=== PATIENT | female | born 2000 | race Caucasian/White ===

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

== ENCOUNTER 2018-01-08 16:03 | Inpatient (IN) | payer MEDICAID ==
[2018-01-08] VITALS (158 sets, daily range): BP systolic 118; BP diastolic 79; PULSE 96; TEMP 97.2; O2SAT 71–100
[~2018-01-08] VITALS: Ht 170.2 cm; Wt 63.5 kg
[2018-01-08 16:27] LABS: COLLECTION METHOD CLEAN CATCH
[2018-01-08 16:30] LABS: BASO % 0.4 % (0.0-2.0); EOS % 0.2 % (0-4.0); GRAN # 8.7 (1.4-6.5); GRAN % 77.9 % (42.2-75.2); HEMATOCRIT 46.4 % (35.0-45.0); HEMOGLOBIN 17.3 g/dl (12.0-15.0); LYMPH # 1.5 (1.2-3.4); LYMPH % 13.2 % (20.0-51.0); MEAN CELL VOLUME 86 fl (80.0-95.0); MEAN CORPUSCULAR HEMOGLOBIN 32 pg (26.0-32.0); MEAN CORPUSCULAR HGB CONC 37 g/dl (33.0-37.0); MEAN PLATELET VOLUME 9.7 fl (7.4-10.4); MONO # 0.9 (0.1-0.6); MONO % 7.7 % (1.7-9.3); PLATELET COUNT 182 K/mm3 (130-400); RED BLOOD COUNT 5.43 M/mm3 (4.10-5.30); REDCELL DISTRIBUTION WIDTH-CV 15.4 % (11.5-14.5)
[2018-01-08 16:34] LABS: MUCOUS Present /lpf; PH 6 (5-8); URINE APPEARANCE Hazy; URINE BACTERIA Rare /hpf; URINE BILIRUBIN Negative (NEGATIVE); URINE BLOOD Negative (NEGATIVE); URINE COLOR Yellow; URINE GLUCOSE 3+ (NEGATIVE); URINE KETONE 2+ (NEGATIVE); URINE LEUKOCYTE ESTERASE Negative (NEGATIVE); URINE NITRATE Negative (NEGATIVE); URINE PROTEIN(semi-quant) 2+ (NEGATIVE); URINE RBC 0-2 /hpf; URINE UROBILINOGEN Negative (NEGATIVE)
[2018-01-08 16:47] LABS: ALANINE AMINOTRANSFERASE 23 U/L (9-52); ALKALINE PHOSPHATASE 131 U/L (50-136); ANION GAP 22 mmol/L (7-16); AST,SGOT 17 U/L (15-37); BILIRUBIN,TOTAL 1.2 mg/dL (0.0-1.0); BLOOD UREA NITROGEN 6 mg/dL (7-17); C-REACTIVE PROTEIN 0.7 mg/dL (0.0-0.9); CALCIUM 9.2 mg/dL (8.4-10.2); CHLORIDE 104 mmol/L (98-107); CREATININE, serum 0.45 mg/dL (0.52-1.25); GLUCOSE 351 mg/dL (74-106); POTASSIUM 3.8 mmol/L (3.4-5.0); SODIUM 134 mmol/L (137-145); TOTAL PROTEIN 8.4 gm/dL (6.4-8.2)
[2018-01-08 16:54] LABS: CARBON DIOXIDE 7 mmol/L (22-30)
[2018-01-08 17:15] LABS: ACETONE,SERUM SMALL
[2018-01-08 17:46] LABS: TRICYCLIC ANTIDEPRESS URINE NEGATIVE
[2018-01-08] MEDS ORDERED: IMURAN 50MG TAB50 MG PO (21:07)
[2018-01-08 21:25] LABS: CALCIUM 8.2 mg/dL (8.4-10.2); CREATININE, serum 0.37 mg/dL (0.52-1.25); MAGNESIUM 1.7 mg/dL (1.6-2.3); PHOSPHOROUS 1.3 mg/dL (2.5-4.5); POTASSIUM 3.3 mmol/L (3.4-5.0)
[2018-01-08 23:31] LABS: CALCIUM 7.6 mg/dL (8.4-10.2); CREATININE, serum 0.3 mg/dL (0.52-1.25); POTASSIUM 3.6 mmol/L (3.4-5.0)
[2018-01-09] VITALS (850 sets, daily range): BP systolic 93–110; BP diastolic 57–74; PULSE 75–95; TEMP 97.1–98.2; O2SAT 79–100
[2018-01-09 01:38] LABS: CALCIUM 7.5 mg/dL (8.4-10.2); CREATININE, serum 0.32 mg/dL (0.52-1.25); POTASSIUM 3.8 mmol/L (3.4-5.0)
[2018-01-09 03:25] LABS: CALCIUM 7.3 mg/dL (8.4-10.2); CREATININE, serum 0.31 mg/dL (0.52-1.25); POTASSIUM 3.6 mmol/L (3.4-5.0)
[2018-01-09 06:03] LABS: CALCIUM 7.4 mg/dL (8.4-10.2); CREATININE, serum 0.29 mg/dL (0.52-1.25); MAGNESIUM 1.7 mg/dL (1.6-2.3); PHOSPHOROUS 2.8 mg/dL (2.5-4.5); POTASSIUM 3.2 mmol/L (3.4-5.0)
[2018-01-09 09:27] LABS: CALCIUM 7.9 mg/dL (8.4-10.2); CREATININE, serum 0.29 mg/dL (0.52-1.25)
[2018-01-09 09:32] LABS: POTASSIUM 2.9 mmol/L (3.4-5.0)
[2018-01-09 11:36] LABS: CREATININE, serum 0.31 mg/dL (0.52-1.25)
[2018-01-09 13:35] LABS: CALCIUM 7.8 mg/dL (8.4-10.2); CREATININE, serum 0.34 mg/dL (0.52-1.25); POTASSIUM 3.1 mmol/L (3.4-5.0)
[2018-01-09 15:20] LABS: CALCIUM 8.1 mg/dL (8.4-10.2); CREATININE, serum 0.31 mg/dL (0.52-1.25)
[2018-01-09 18:06] LABS: CALCIUM 8.1 mg/dL (8.4-10.2); CREATININE, serum 0.3 mg/dL (0.52-1.25); POTASSIUM 3.1 mmol/L (3.4-5.0)
[2018-01-10] VITALS (7 sets, daily range): BP systolic 107–129; BP diastolic 46–80; PULSE 74–102; TEMP 97.7–98.9
[2018-01-10 07:31] LABS: BASO % 0.3 % (0.0-2.0); EOS # 0.1 (0.0-0.7); EOS % 1.5 % (0-4.0); GRAN # 2.2 (1.4-6.5); GRAN % 57.2 % (42.2-75.2); LYMPH % 26.8 % (20.0-51.0); MEAN CELL VOLUME 85 fl (80.0-95.0); MEAN CORPUSCULAR HGB CONC 37 g/dl (33.0-37.0); MONO # 0.5 (0.1-0.6); MONO % 13.9 % (1.7-9.3); PLATELET COUNT 96 K/mm3 (130-400)
[2018-01-10 07:46] LABS: CALCIUM 8.1 mg/dL (8.4-10.2); CREATININE, serum 0.34 mg/dL (0.52-1.25); MAGNESIUM 1.6 mg/dL (1.6-2.3); PHOSPHOROUS 2.2 mg/dL (2.5-4.5)
[2018-01-10 07:47] LABS: POTASSIUM 2.9 mmol/L (3.4-5.0)
[2018-01-10 07:54] LABS: HEMOGLOBIN 12.2 g/dl (12.0-15.0); MEAN CORPUSCULAR HEMOGLOBIN 31 pg (26.0-32.0)
[2018-01-10 18:05] LABS: CALCIUM 8.4 mg/dL (8.4-10.2); CREATININE, serum 0.35 mg/dL (0.52-1.25); POTASSIUM 3.4 mmol/L (3.4-5.0)
[2018-01-11 03:19] VITALS: BP 114/60; PULSE 88; TEMP 98.2
[2018-01-11 07:28] LABS: EOS % 1.3 % (0-4.0); GRAN # 1.6 (1.4-6.5); GRAN % 50.1 % (42.2-75.2); HEMOGLOBIN 11.1 g/dl (12.0-15.0); LYMPH % 32.6 % (20.0-51.0); MEAN CELL VOLUME 86 fl (80.0-95.0); MEAN CORPUSCULAR HEMOGLOBIN 32 pg (26.0-32.0); MEAN CORPUSCULAR HGB CONC 37 g/dl (33.0-37.0); MEAN PLATELET VOLUME 10.9 fl (7.4-10.4); MONO # 0.5 (0.1-0.6); MONO % 15.7 % (1.7-9.3); PLATELET COUNT 86 K/mm3 (130-400); RED BLOOD COUNT 3.51 M/mm3 (4.10-5.30)
[2018-01-11 07:31] LABS: HEMATOCRIT 30.1 % (35.0-45.0)
[2018-01-11 07:38] LABS: CALCIUM 8.1 mg/dL (8.4-10.2); CREATININE, serum 0.27 mg/dL (0.52-1.25); MAGNESIUM 1.8 mg/dL (1.6-2.3); POTASSIUM 3.3 mmol/L (3.4-5.0)
[2018-01-11 08:19] VITALS: BP 105/59; PULSE 68; TEMP 98
[2018-01-11 13:19] VITALS: BP 115/69; PULSE 95; TEMP 97.9
[2018-01-11] MEDS ORDERED: DOXYCYCLINE 10100 MG PO (13:45)
[2018-01-11] MEDS ORDERED: LEVEMIR100 U/ML SQ (13:46)
[2018-01-11 15:32] VITALS: BP 121/69; PULSE 89; TEMP 98.5
[2018-01-11] MEDS ORDERED: NOVLOG SQ (17:38)
== END 2018-01-11 18:18 | disposition home or self-care (01) | DRG 639 ==
LOC: COL.ER 16:03 → MEDICAL 18:25 → ICU 18:25 → MEDICAL 01-09 20:54
PROVIDERS: Emergency Medicine; Nurse Practitioner Family; Nurse Practitioner Primary Care; Physician Assistant
DX: E11.10 Type 2 diabetes mellitus with ketoacidosis without coma (principal); Z79.4 Long term (current) use of insulin; K75.4 Autoimmune hepatitis; E87.6 Hypokalemia; E86.0 Dehydration; E83.42 Hypomagnesemia; F12.10 Cannabis abuse, uncomplicated; L02.422 Furuncle of left axilla; E83.39 Other disorders of phosphorus metabolism; Z91.14 Patient's other noncompliance with medication regimen; F17.210 Nicotine dependence, cigarettes, uncomplicated
CPT/HCPCS: 99232-AI; 99239; J1650; J1815; J3475; J3480; J7040; J7500

== ENCOUNTER 2018-03-09 16:58 | Inpatient (IN) | payer MEDICAID ==
[~2018-03-09] VITALS: Ht 170.2 cm; Wt 61.7 kg
[2018-03-09] VITALS (227 sets, daily range): BP systolic 112–118; BP diastolic 67–69; PULSE 80–81; TEMP 98.2; O2SAT 98–100
[~2018-03-09 16:58] MED LIST changes: +IMURAN 50MG TAB50 MG PO; +NOVLOG SQ
[2018-03-09 17:41] LABS: ARTERIAL BLD GAS O2 SATURATION 97.5 % (92-100); ARTERIAL BLD GAS TCO2 CT 7.3; ARTERIAL BLOOD GAS HCO3 6.8 meq/L (22-26); ARTERIAL BLOOD GAS PCO2 16.3 mmHg (35-45); ARTERIAL BLOOD GAS PO2 119.2 mmHg (80-100); ARTERIAL BLOOD GAS pH 7.24 (7.35-7.45)
[2018-03-09 17:59] LABS: BASO % 0.3 % (0.0-2.0); EOS % 0.5 % (0-4.0); GRAN # 4.7 (1.4-6.5); GRAN % 76.3 % (42.2-75.2); HEMATOCRIT 43.3 % (35.0-45.0); HEMOGLOBIN 15.3 g/dl (12.0-15.0); LYMPH # 0.9 (1.2-3.4); LYMPH % 14.9 % (20.0-51.0); MEAN CELL VOLUME 93 fl (80.0-95.0); MEAN CORPUSCULAR HEMOGLOBIN 33 pg (26.0-32.0); MEAN CORPUSCULAR HGB CONC 35 g/dl (33.0-37.0); MEAN PLATELET VOLUME 10.2 fl (7.4-10.4); MONO # 0.5 (0.1-0.6); MONO % 7.7 % (1.7-9.3); PLATELET COUNT 107 K/mm3 (130-400); RED BLOOD COUNT 4.65 M/mm3 (4.10-5.30); REDCELL DISTRIBUTION WIDTH-CV 14.1 % (11.5-14.5)
[2018-03-09] MEDS ORDERED: LEVEMIR FLEX100 U/ML SQ (18:14)
[2018-03-09 18:19] LABS: ALANINE AMINOTRANSFERASE 36 U/L (9-52); ALBUMIN 4.7 gm/dL (3.5-5.0); ALKALINE PHOSPHATASE 148 U/L (50-136); ANION GAP 23 mmol/L (7-16); AST,SGOT 20 U/L (15-37); BILIRUBIN,TOTAL 1.2 mg/dL (0.0-1.0); BLOOD UREA NITROGEN 7 mg/dL (7-17); CALCIUM 8.9 mg/dL (8.4-10.2); CHLORIDE 100 mmol/L (98-107); GLUCOSE 356 mg/dL (74-106); POTASSIUM 4.1 mmol/L (3.4-5.0); SODIUM 130 mmol/L (137-145); TOTAL PROTEIN 7.9 gm/dL (6.4-8.2)
[2018-03-09 18:20] LABS: CARBON DIOXIDE 6 mmol/L (22-30)
[2018-03-09 18:22] LABS: ACETONE,SERUM LARGE
[2018-03-09 19:05] LABS: COLLECTION METHOD CLEAN CATCH
[2018-03-09 19:12] LABS: MUCOUS Present /lpf; PH 5 (5-8); SQUAMOUS EPITHELIAL 0-2 /hpf; URINE APPEARANCE Clear; URINE BACTERIA None Seen /hpf; URINE BILIRUBIN Negative (NEGATIVE); URINE BLOOD 1+ (NEGATIVE); URINE COLOR Straw; URINE GLUCOSE 3+ (NEGATIVE); URINE KETONE 2+ (NEGATIVE); URINE LEUKOCYTE ESTERASE Negative (NEGATIVE); URINE NITRATE Negative (NEGATIVE); URINE PROTEIN(semi-quant) Negative (NEGATIVE); URINE RBC 0-2 /hpf; URINE UROBILINOGEN Negative (NEGATIVE)
[2018-03-09 21:45] LABS: MAGNESIUM 1.6 mg/dL (1.6-2.3); PHOSPHOROUS 3.5 mg/dL (2.5-4.5)
[2018-03-09 21:58] LABS: CALCIUM 8.1 mg/dL (8.4-10.2); CREATININE, serum 0.35 mg/dL (0.52-1.25); POTASSIUM 3.8 mmol/L (3.4-5.0)
[2018-03-10] VITALS (1014 sets, daily range): BP systolic 89–111; BP diastolic 2–66; PULSE 75–83; TEMP 98.2–98.6; O2SAT 89–100
[2018-03-10 00:11] LABS: CALCIUM 7.4 mg/dL (8.4-10.2); CREATININE, serum 0.31 mg/dL (0.52-1.25); POTASSIUM 3.6 mmol/L (3.4-5.0)
[2018-03-10 00:18] LABS: TRICYCLIC ANTIDEPRESS URINE NEGATIVE
[2018-03-10 01:57] LABS: CALCIUM 7.3 mg/dL (8.4-10.2); CREATININE, serum 0.31 mg/dL (0.52-1.25); POTASSIUM 3.5 mmol/L (3.4-5.0)
[2018-03-10 04:32] LABS: CALCIUM 7.3 mg/dL (8.4-10.2); CREATININE, serum 0.3 mg/dL (0.52-1.25); POTASSIUM 3.4 mmol/L (3.4-5.0)
[2018-03-10 07:17] LABS: CALCIUM 7.3 mg/dL (8.4-10.2); CREATININE, serum 0.32 mg/dL (0.52-1.25); MAGNESIUM 1.8 mg/dL (1.6-2.3); POTASSIUM 3.5 mmol/L (3.4-5.0)
[2018-03-10 08:21] LABS: CALCIUM 7.7 mg/dL (8.4-10.2); CREATININE, serum 0.25 mg/dL (0.52-1.25); POTASSIUM 3.5 mmol/L (3.4-5.0)
[2018-03-10 10:06] LABS: BASO % 0.3 % (0.0-2.0); EOS # 0.1 (0.0-0.7); EOS % 1.5 % (0-4.0); GRAN # 2.1 (1.4-6.5); GRAN % 60.6 % (42.2-75.2); LYMPH # 0.9 (1.2-3.4); LYMPH % 27.2 % (20.0-51.0); MEAN CELL VOLUME 90 fl (80.0-95.0); MEAN CORPUSCULAR HGB CONC 37 g/dl (33.0-37.0); MEAN PLATELET VOLUME 9.4 fl (7.4-10.4); MONO # 0.3 (0.1-0.6); MONO % 9.8 % (1.7-9.3); PLATELET COUNT 74 K/mm3 (130-400); RED BLOOD COUNT 3.59 M/mm3 (4.10-5.30); REDCELL DISTRIBUTION WIDTH-CV 13.7 % (11.5-14.5)
[2018-03-10 10:15] LABS: CALCIUM 7.6 mg/dL (8.4-10.2); CREATININE, serum 0.21 mg/dL (0.52-1.25); POTASSIUM 3.3 mmol/L (3.4-5.0)
[2018-03-10 10:28] LABS: HEMATOCRIT 32.2 % (35.0-45.0); MEAN CORPUSCULAR HEMOGLOBIN 33 pg (26.0-32.0)
[2018-03-10 10:30] LABS: HEMOGLOBIN 11.8 g/dl (12.0-15.0)
[2018-03-10 15:58] LABS: CALCIUM 7.9 mg/dL (8.4-10.2); CREATININE, serum 0.3 mg/dL (0.52-1.25); POTASSIUM 3.1 mmol/L (3.4-5.0)
== END 2018-03-10 18:40 | disposition home or self-care (01) | DRG 638 ==
LOC: COL.ER 16:58 → ICU 17:52
PROVIDERS: Family Medicine; Hospitalist; Nurse Practitioner Family
DX: E10.10 Type 1 diabetes mellitus with ketoacidosis without coma (principal); E87.1 Hypo-osmolality and hyponatremia; Z79.4 Long term (current) use of insulin; K75.4 Autoimmune hepatitis; E83.42 Hypomagnesemia
CPT/HCPCS: 99223-AI; J1650; J1815; J2405; J3475; J3480; J7030; J7120; J7500

== ENCOUNTER 2018-06-02 10:01 | Inpatient (IN) | payer MEDICAID ==
[2018-06-02] VITALS (566 sets, daily range): BP systolic 95–124; BP diastolic 51–77; PULSE 95–100; TEMP 97.7–98; O2SAT 85–100
[~2018-06-02] VITALS: Ht 170.2 cm; Wt 64.1 kg
[~2018-06-02 10:01] MED LIST changes: -IMURAN 50MG TAB50 MG PO; +LEVEMIR FLEX100 U/ML SQ
[2018-06-02 11:18] LABS: BASO % 0.3 % (0.0-2.0); GRAN # 10.1 (1.4-6.5); HEMATOCRIT 49.1 % (35.0-45.0); HEMOGLOBIN 16.8 g/dl (12.0-15.0); LYMPH # 0.8 (1.2-3.4); MEAN CELL VOLUME 95 fl (80.0-95.0); MEAN CORPUSCULAR HEMOGLOBIN 33 pg (26.0-32.0); MEAN CORPUSCULAR HGB CONC 34 g/dl (33.0-37.0); MEAN PLATELET VOLUME 10.4 fl (7.4-10.4); MONO # 0.3 (0.1-0.6); MONO % 2.6 % (1.7-9.3); PLATELET COUNT 205 K/mm3 (130-400); RED BLOOD COUNT 5.15 M/mm3 (4.10-5.30); REDCELL DISTRIBUTION WIDTH-CV 13.4 % (11.5-14.5)
[2018-06-02 11:25] LABS: ALANINE AMINOTRANSFERASE 34 U/L (9-52); ALBUMIN 5.1 gm/dL (3.5-5.0); ALKALINE PHOSPHATASE 201 U/L (50-136); AST,SGOT 26 U/L (15-37); BILIRUBIN,TOTAL 1.8 mg/dL (0.0-1.0); BLOOD UREA NITROGEN 15 mg/dL (7-17); CHLORIDE 109 mmol/L (98-107); CREATININE, serum 0.65 mg/dL (0.52-1.25); LIPASE 56 U/L (23-300); SODIUM 139 mmol/L (137-145); TOTAL PROTEIN 8.3 gm/dL (6.4-8.2)
[2018-06-02 11:40] LABS: GLUCOSE 544 mg/dL (74-106); POTASSIUM 6.2 mmol/L (3.4-5.0)
[2018-06-02 11:41] LABS: CARBON DIOXIDE < 5 mmol/L (22-30)
[2018-06-02 11:46] LABS: ACETONE,SERUM MODERATE
[2018-06-02 11:59] LABS: COLLECTION METHOD CLEAN CATCH
[2018-06-02 12:06] LABS: MUCOUS Present /lpf; PH 5 (5-8); URINE APPEARANCE Clear; URINE BACTERIA Rare /hpf; URINE BILIRUBIN Negative (NEGATIVE); URINE BLOOD Negative (NEGATIVE); URINE COLOR Yellow; URINE GLUCOSE 3+ (NEGATIVE); URINE KETONE 2+ (NEGATIVE); URINE LEUKOCYTE ESTERASE Negative (NEGATIVE); URINE NITRATE Negative (NEGATIVE); URINE PROTEIN(semi-quant) 1+ (NEGATIVE); URINE RBC 0-2 /hpf; URINE UROBILINOGEN Negative (NEGATIVE)
--- NOTE | 2018-06-02 14:20 | NUR ---
Pt ambulated from ER cart to bed without assistance. Friend Adrianna with pt. Pt alert and oriented but acting drowsy. When asked if she is really sleepy, she responds with "kind of".
[2018-06-02 14:50] LABS: BLOOD UREA NITROGEN 12 mg/dL (7-17); CALCIUM 7.8 mg/dL (8.4-10.2); CHLORIDE 116 mmol/L (98-107); CREATININE, serum 0.62 mg/dL (0.52-1.25); GLUCOSE 252 mg/dL (74-106); POTASSIUM 4.7 mmol/L (3.4-5.0); SODIUM 140 mmol/L (137-145)
[2018-06-02 14:53] LABS: CARBON DIOXIDE < 5 mmol/L (22-30)
--- NOTE | 2018-06-02 15:21 | NUR ---
Mother and friend at bedside. Pt remains drowsy
[2018-06-02 18:28] LABS: BLOOD UREA NITROGEN 9 mg/dL (7-17); CALCIUM 7.4 mg/dL (8.4-10.2); CHLORIDE 114 mmol/L (98-107); CREATININE, serum 0.49 mg/dL (0.52-1.25); GLUCOSE 217 mg/dL (74-106); POTASSIUM 5.4 mmol/L (3.4-5.0); SODIUM 134 mmol/L (137-145)
[2018-06-02 19:09] LABS: CARBON DIOXIDE < 5 mmol/L (22-30)
[2018-06-02 20:30] LABS: CREATININE, serum 0.43 mg/dL (0.52-1.25); POTASSIUM 4.5 mmol/L (3.4-5.0)
[2018-06-02 21:19] LABS: CREATININE, serum 0.45 mg/dL (0.52-1.25); POTASSIUM 4.5 mmol/L (3.4-5.0)
[2018-06-02 23:22] LABS: CALCIUM 7.3 mg/dL (8.4-10.2); CREATININE, serum 0.47 mg/dL (0.52-1.25); POTASSIUM 4.4 mmol/L (3.4-5.0)
[2018-06-03] VITALS (1111 sets, daily range): BP systolic 99–121; BP diastolic 53–81; PULSE 81–98; TEMP 97.8–98.7; O2SAT 74–100
[2018-06-03 01:31] LABS: CALCIUM 7.2 mg/dL (8.4-10.2); CREATININE, serum 0.42 mg/dL (0.52-1.25); POTASSIUM 4.1 mmol/L (3.4-5.0)
[2018-06-03 03:40] LABS: CALCIUM 7.4 mg/dL (8.4-10.2); CREATININE, serum 0.42 mg/dL (0.52-1.25); POTASSIUM 3.9 mmol/L (3.4-5.0)
[2018-06-03 05:24] LABS: BASO % 0.2 % (0.0-2.0); EOS % 0.5 % (0-4.0); GRAN # 5.7 (1.4-6.5); GRAN % 68.3 % (42.2-75.2); LYMPH # 1.8 (1.2-3.4); LYMPH % 21.5 % (20.0-51.0); MEAN CELL VOLUME 92 fl (80.0-95.0); MEAN CORPUSCULAR HGB CONC 36 g/dl (33.0-37.0); MEAN PLATELET VOLUME 9.2 fl (7.4-10.4); MONO # 0.7 (0.1-0.6); MONO % 8.7 % (1.7-9.3); PLATELET COUNT 190 K/mm3 (130-400); RED BLOOD COUNT 3.95 M/mm3 (4.10-5.30); REDCELL DISTRIBUTION WIDTH-CV 13.4 % (11.5-14.5)
[2018-06-03 05:30] LABS: HEMATOCRIT 36.5 % (35.0-45.0); MEAN CORPUSCULAR HEMOGLOBIN 33 pg (26.0-32.0)
[2018-06-03 05:42] LABS: BILIRUBIN,TOTAL 0.7 mg/dL (0.0-1.0); CALCIUM 7.5 mg/dL (8.4-10.2); CREATININE, serum 0.4 mg/dL (0.52-1.25); POTASSIUM 3.7 mmol/L (3.4-5.0); TOTAL PROTEIN 5.6 gm/dL (6.4-8.2)
[2018-06-03 07:27] LABS: CALCIUM 7.4 mg/dL (8.4-10.2); CREATININE, serum 0.38 mg/dL (0.52-1.25); POTASSIUM 3.5 mmol/L (3.4-5.0)
--- NOTE | 2018-06-03 07:45 | NUR ---
Bedside report given to Yuly RN. Patient awake and answers questions appropriately.
--- NOTE | 2018-06-03 07:46 | NUR ---
Bedside report received from PHILL Craven. Care of patient assumed at this time. Insulin reviewed with Merissa. Insulin increased to 4 units/hr, verified by this nurse and Merissa.
--- NOTE | 2018-06-03 08:00 | NUR ---
Patient assessment complete. Patient resting in bed, denies any pain or shortness of breath. Patient is drowsy but oriented x4. Insulin drip running. Will continue to monitor.
[2018-06-03 09:25] LABS: CALCIUM 7.4 mg/dL (8.4-10.2); CREATININE, serum 0.35 mg/dL (0.52-1.25); POTASSIUM 3.3 mmol/L (3.4-5.0)
--- NOTE | 2018-06-03 10:20 | NUR ---
Insulin drip increased to 5 units/hr. Verified by Erin Patiño RN.
--- NOTE | 2018-06-03 10:21 | NUR ---
Initial visit; Patient thanked Restorative Coordinator for visit and was receptive to prayer. Restorative Coordinator will keep Lita in her prayers and will follow up while she is here.
[2018-06-03 11:09] LABS: CALCIUM 7.7 mg/dL (8.4-10.2); CREATININE, serum 0.4 mg/dL (0.52-1.25); MAGNESIUM 1.5 mg/dL (1.6-2.3); POTASSIUM 3.5 mmol/L (3.4-5.0)
--- NOTE | 2018-06-03 12:00 | NUR ---
Patient resting in bed. No concerns at this time. Patient denies pain or shortness of breath. No confusion noted. Will continue to monitor.
--- NOTE | 2018-06-03 15:53 | NUR ---
workers' compensation commissioner met with patient and her mother to discuss discharge planning. Patient recently kicked out of her sister's home and is now staying with a friend in [place], [place]. Patient states she has been picking up her insulin and using it and will now need script to be sent to [facility]. Worker encouraged patient to utilize [employer] transportation assistance and with patient's permission established primary care with Dr Jett at [facility]. Worker encouraged patient to contact [facility] housing authority to begin process of Section 8 housing application. Patient was receiving disability and is currently not. Patient plans to discharge to friends home upon discharge.
--- NOTE | 2018-06-03 16:27 | NUR ---
Insulin drip increased to 6 units/hr. Verified with Erin Patiño RN.
--- NOTE | 2018-06-03 17:12 | NUR ---
Insulin drip increased to 7 units/hr. Verified with Erin Patiño RN.
[2018-06-03 17:27] LABS: CALCIUM 7.7 mg/dL (8.4-10.2); CREATININE, serum 0.34 mg/dL (0.52-1.25); MAGNESIUM 1.6 mg/dL (1.6-2.3); POTASSIUM 3.5 mmol/L (3.4-5.0)
--- NOTE | 2018-06-03 19:00 | NUR ---
Report given to PHILL Cheema.
--- NOTE | 2018-06-03 19:45 | NUR ---
Patient assessment completed and charted at this time, please see documentation for details. Patient resting in bed, no issues to report. Will continue to monitor and assess.
[2018-06-03 23:22] LABS: CALCIUM 7.9 mg/dL (8.4-10.2); CREATININE, serum 0.41 mg/dL (0.52-1.25); MAGNESIUM 1.6 mg/dL (1.6-2.3); POTASSIUM 3.3 mmol/L (3.4-5.0)
[2018-06-04] VITALS (13 sets, daily range): BP systolic 92–121; BP diastolic 53–71; PULSE 77–88; TEMP 97.8–98.3; O2SAT 76–92
[2018-06-04 06:11] LABS: CALCIUM 7.6 mg/dL (8.4-10.2); CREATININE, serum 0.31 mg/dL (0.52-1.25); MAGNESIUM 1.7 mg/dL (1.6-2.3); POTASSIUM 3.9 mmol/L (3.4-5.0)
--- NOTE | 2018-06-04 07:22 | NUR ---
Bedside report recieved from PHILL Cheema. Patient sleeps when no disturbed. Right triple lumen catheter with scant drainage noted. Occlusive dressing intact. D51/2NS with 20meq of K noted to run at 250ml/hr, insulin at 6units/hr. FSBS completed by Deni resulting 171. Patient denies needs at this time. Care assumed.
--- NOTE | 2018-06-04 09:12 | NUR ---
Dr. Valenzuela rounds at this time. Orders recieved as entered CPOE for patient med changes and transfer to medical floor. Care ongoing.
--- NOTE | 2018-06-04 12:47 | NUR ---
Report called to PHILL Leroy.
--- NOTE | 2018-06-04 13:02 | NUR ---
Patient departs via wheelchair to surgical room 349. All belongings are sent with as well as patient chart.
--- NOTE | 2018-06-04 13:10 | NUR ---
arrived to room per WC from ICU, alert and oriented, oriented to room and verbalizes understanding, will order breakfast now and IRON BENDER notified to obtain blood sugar, patient denies needs at this time
--- NOTE | 2018-06-04 13:25 | NUR ---
resting in bed on phone, has ordered lunch, full assessment comopleted, see shift assessment for further info
[2018-06-04] MEDS ORDERED: LEVEMIR SQ (13:26)
--- NOTE | 2018-06-04 15:07 | NUR ---
had lunch and tolerated well, denies needs
--- NOTE | 2018-06-04 16:15 | NUR ---
appears to be sleeping, on right side with eyes closed, resp quiet and easy, mom at bedside
--- NOTE | 2018-06-04 17:25 | NUR ---
entered room and patient out and had informed ELECTRONIC CONSOLE DISPLAY OPERATOR she was going down stairs with her mom, had also told this nurse earlier but was not able to visit with her before she left the room
--- NOTE | 2018-06-04 18:30 | NUR ---
entered room and she is made and crying and refusing to eat and refusing her insulin, states she is hungry but she called for h er insulin a while ago and now the food is cold, I was only given the message now, she is refusing to eat and take the insulin even though she says she is hungry, offered to warm the food or order something else and she continues to refuse, she finally agrees to take the insulin and her mom and sister will go and get her baked chicken
--- NOTE | 2018-06-04 19:10 | NUR ---
sitting up in bed, had grilled chicken sandwich and tolerated well, bedside shift report given to PHILL torrez
--- NOTE | 2018-06-04 20:00 | NUR ---
Patient in bed resting, mother at bedside. Alert and oriented x 3. Patient states that she would like to take a shower later this afternoon, patient will call when ready to assist and cover IV sites. INT to left forarm. Right IJ with fluids infusing via pump. Denies pain or other needs at this time.
--- NOTE | 2018-06-04 21:00 | NUR ---
Taped IV and IJ. Patient showering independently. Mother in room.
[2018-06-05 01:00] VITALS: BP 90/52; PULSE 80; TEMP 98.1
[2018-06-05 04:26] VITALS: BP 92/65; PULSE 73; TEMP 97.7
--- NOTE | 2018-06-05 06:14 | NUR ---
Patient has rested well through the night, mother at bedside. Has been up ambulating in halls. Steady gait. IV fluids infusing via pump to Right IJ. Continues to deny pain. Denies further needs at this time. Will report off to day shift.
--- NOTE | 2018-06-05 06:40 | NUR ---
appears to be sleeping, in bed with lights on but eyes closed and resp quiet and easy, mom at bedside and also appears to be sleeping
[2018-06-05 06:42] LABS: MEAN CELL VOLUME 92 fl (80.0-95.0); MEAN CORPUSCULAR HGB CONC 36 g/dl (33.0-37.0); MEAN PLATELET VOLUME 10.5 fl (7.4-10.4); RED BLOOD COUNT 3.08 M/mm3 (4.10-5.30); REDCELL DISTRIBUTION WIDTH-CV 13.7 % (11.5-14.5)
[2018-06-05 06:48] LABS: CALCIUM 7.9 mg/dL (8.4-10.2); CREATININE, serum 0.3 mg/dL (0.52-1.25); POTASSIUM 3.5 mmol/L (3.4-5.0)
[2018-06-05 06:50] LABS: HEMATOCRIT 28.2 % (35.0-45.0); HEMOGLOBIN 10.2 g/dl (12.0-15.0); MEAN CORPUSCULAR HEMOGLOBIN 33 pg (26.0-32.0); PLATELET COUNT 61 K/mm3 (130-400)
--- NOTE | 2018-06-05 07:40 | NUR ---
appears to be sleeping, lab in and blood drawn from brown port after IV fluids off for 15 minutes, awakens briefly during blood draw, blood sugar obtained also, will call and let this nurse know when she orders breakfast
[2018-06-05 08:04] LABS: LYMPHOCYTE 68 % (20.0-51.0)
[2018-06-05 08:05] LABS: EOSINOPHIL 4 % (0-4); NEUTROPHILS 24 % (42.0-75.2); PLATELET ESTIMATE DECREASED (NORMAL)
[2018-06-05 08:28] LABS: HEMOGLOBIN 10.3 g/dl (12.0-15.0); MEAN CELL VOLUME 93 fl (80.0-95.0); MEAN CORPUSCULAR HEMOGLOBIN 33 pg (26.0-32.0); MEAN CORPUSCULAR HGB CONC 35 g/dl (33.0-37.0); MEAN PLATELET VOLUME 10.4 fl (7.4-10.4); PLATELET COUNT 63 K/mm3 (130-400); RED BLOOD COUNT 3.15 M/mm3 (4.10-5.30)
[2018-06-05 08:30] LABS: HEMATOCRIT 29.2 % (35.0-45.0)
--- NOTE | 2018-06-05 08:45 | NUR ---
continues to sleep awakened and full assessment completed, see interventions for further info, Dr Valenzuela and care team in to see patient, as Dr Valenzuela is rying to talk with her she lays in bed with eyes closed and either doesn't answer or mumbles, mom at bedside and usually answers the quesstions, he explained to her the importance of following up with the Dr when she leaves and checking blood sugars, she does not acknowledge his instructions, given first dose of potassium and instructed on drinking it over the next 10 minutes
--- NOTE | 2018-06-05 08:56 | NUR ---
CHAR attended clinical rounding. Patient is discharging home today with a friend. She reports she can't get to her appointments. CHAR provided her with the number for [facility] transportation through her medicaid benefits. Patient seems resistant to going to see any medical scientific liaison and diabetic education. talked with her about the importance of keeping her blood sugar under control.
--- NOTE | 2018-06-05 09:25 | NUR ---
sitting up in bed ready to eat breakfast
[2018-06-05] MEDS ORDERED: MAG-OX 400400 MG/TAB PO (09:30)
[2018-06-05 09:40] VITALS: BP 108/63; PULSE 96; TEMP 97.8
--- NOTE | 2018-06-05 10:10 | NUR ---
had breakfast and now appears to be sleeping, resp quiet and easy
[2018-06-05 10:19] LABS: LYMPHOCYTE 56 % (20.0-51.0); NEUTROPHILS 34 % (42.0-75.2); PLATELET ESTIMATE DECREASED (NORMAL)
--- NOTE | 2018-06-05 10:50 | NUR ---
appears to be sleeping, awakened and given second dose of potassium
[2018-06-05 12:10] VITALS: BP 111/70; PULSE 98; TEMP 97.8
--- NOTE | 2018-06-05 12:20 | NUR ---
central line in right IJ removed under sterile technique, tolerated procedure well although she did cry while it was being taken out, covered with sterile dressing, sitting up and ready for lunch
--- NOTE | 2018-06-05 12:25 | NUR ---
First visit from the chro. No needs right now.
[2018-06-05] MEDS ORDERED: IMURAN 50MG TAB50 MG PO (12:39)
--- NOTE | 2018-06-05 12:50 | NUR ---
mother came to desk stating patient was having trouble breathing and c/o pain to neck where central line removed, entered room and she is sitting up on side of bed eating lunch visiting with a friend, states she feels short of breath and having chest pain, this started after she stood up, dressing to central line site CD&I, has an occassional dry cough, will check VS
[2018-06-05 12:52] VITALS: BP 98/58; PULSE 111; TEMP 98.4
--- NOTE | 2018-06-05 13:00 | NUR ---
lying in bed now and states feels a little better, BP 98/58 P 111, Resp 26 and O2 sat 93% on room air, JOSEPH Roman notified
--- NOTE | 2018-06-05 13:20 | NUR ---
FEELING BETTER NOW, LYING IN BED LAUGHING AND JOKING WITH MOM AND A FRIEND, EATING SHAKILA HILARIO PA NOTIFIED
--- NOTE | 2018-06-05 13:45 | NUR ---
playing cards awaiting discharge
--- NOTE | 2018-06-05 14:10 | NUR ---
JOSEPH Roman called this nurse stating it was OK for patient to leave
--- NOTE | 2018-06-05 14:30 | NUR ---
discharge instructions given to patient and her mom, stressed importance of follow up appointments and monitoring her blood sugars 4 times a day and recording, verbalizes understanding
--- NOTE | 2018-06-05 14:35 | NUR ---
discharged ambulatory
== END 2018-06-05 14:35 | disposition home or self-care (01) | DRG 639 ==
LOC: COL.ER 10:01 → ICU 10:20 → SURG 06-04 13:10
PROVIDERS: Emergency Medicine; Physician Assistant; ADMIT Internal Medicine
PROC: 02H633Z Insertion of Infusion Device into Right Atrium, Percutaneous Approach (ICD-10-PCS; principal; 2018-06-02)
DX: E10.10 Type 1 diabetes mellitus with ketoacidosis without coma (principal); Z79.4 Long term (current) use of insulin; F17.210 Nicotine dependence, cigarettes, uncomplicated; K75.4 Autoimmune hepatitis; Z91.14 Patient's other noncompliance with medication regimen; E87.5 Hyperkalemia; D70.9 Neutropenia, unspecified; D69.6 Thrombocytopenia, unspecified; E83.42 Hypomagnesemia
CPT/HCPCS: 99223-AI; 99232-AI; 99233-AI; 99239; J1650; J1815; J1885; J2405; J3475; J3480; J7030

== ENCOUNTER 2018-06-17 00:20 | Emergency (ER) | payer MEDICAID ==
[~2018-06-17] VITALS: Ht 170.2 cm; Wt 59.1 kg
[~2018-06-17 00:20] MED LIST changes: +IMURAN 50MG TAB50 MG PO; +LEVEMIR SQ; +MAG-OX 400400 MG/TAB PO
[2018-06-17 00:38] VITALS: TEMP 97.8
[2018-06-17 01:20] LABS: COLLECTION METHOD CLEAN CATCH
[2018-06-17 01:29] LABS: HYALINE CAST >12 /lpf; MUCOUS Present /lpf; PH 5 (5-8); SQUAMOUS EPITHELIAL 0-2 /hpf; URINE APPEARANCE Clear; URINE BACTERIA Rare /hpf; URINE BILIRUBIN Negative (NEGATIVE); URINE BLOOD 1+ (NEGATIVE); URINE COLOR Yellow; URINE GLUCOSE 3+ (NEGATIVE); URINE KETONE 2+ (NEGATIVE); URINE LEUKOCYTE ESTERASE Negative (NEGATIVE); URINE NITRATE Negative (NEGATIVE); URINE PROTEIN(semi-quant) 2+ (NEGATIVE); URINE RBC 0-2 /hpf; URINE UROBILINOGEN Negative (NEGATIVE)
[2018-06-17 03:50] LABS: HEMATOCRIT 46.4 % (35.0-45.0); HEMOGLOBIN 15.8 g/dl (12.0-15.0); MEAN CELL VOLUME 94 fl (80.0-95.0); MEAN CORPUSCULAR HEMOGLOBIN 32 pg (26.0-32.0); MEAN CORPUSCULAR HGB CONC 34 g/dl (33.0-37.0); MEAN PLATELET VOLUME 9.3 fl (7.4-10.4); PLATELET COUNT 293 K/mm3 (130-400); RED BLOOD COUNT 4.92 M/mm3 (4.10-5.30); REDCELL DISTRIBUTION WIDTH-CV 13.8 % (11.5-14.5)
[2018-06-17 04:02] LABS: ALANINE AMINOTRANSFERASE 28 U/L (9-52); ALBUMIN 4.2 gm/dL (3.5-5.0); ALKALINE PHOSPHATASE 178 U/L (50-136); AST,SGOT 17 U/L (15-37); BILIRUBIN,TOTAL 0.9 mg/dL (0.0-1.0); BLOOD UREA NITROGEN 11 mg/dL (7-17); C-REACTIVE PROTEIN 7.1 mg/dL (0.0-0.9); CALCIUM 8.1 mg/dL (8.4-10.2); CHLORIDE 111 mmol/L (98-107); CREATININE, serum 0.52 mg/dL (0.52-1.25); GLUCOSE 390 mg/dL (74-106); MAGNESIUM 1.6 mg/dL (1.6-2.3); PHOSPHOROUS 4.3 mg/dL (2.5-4.5); SODIUM 137 mmol/L (137-145)
[2018-06-17 04:04] LABS: POTASSIUM 5.9 mmol/L (3.4-5.0)
[2018-06-17 04:05] LABS: CARBON DIOXIDE < 5 mmol/L (22-30)
[2018-06-17 04:11] LABS: ACETONE,SERUM SMALL; BAND 11 % (0-10); LYMPHOCYTE 7 % (20.0-51.0); MYELOCYTE 1 % (0-0); NEUTROPHILS 78 % (42.0-75.2); PLATELET ESTIMATE NORMAL (NORMAL); POLYCHROMASIA 1+
[2018-06-17 05:15] VITALS: BP 126/82; PULSE 91
== END 2018-06-17 05:15 | disposition short-term general hospital (02) ==
LOC: COL.ER 00:20
PROVIDERS: Physician Assistant
DX: E10.10 Type 1 diabetes mellitus with ketoacidosis without coma (principal); E87.5 Hyperkalemia; Z98.890 Other specified postprocedural states
CPT/HCPCS: J1815; J2270; J2405; J7030

== ENCOUNTER 2019-03-29 14:15 | Inpatient (IN) | payer SELFPAY ==
[2019-03-29] VITALS (431 sets, daily range): BP systolic 110; BP diastolic 79–85; PULSE 92–109; TEMP 98.8; O2SAT 92–100
[~2019-03-29] VITALS: Ht 170.2 cm; Wt 60.5 kg
[2019-03-29 15:13] LABS: HEMOGLOBIN 11.8 g/dl (12.5-16.0); MEAN CELL VOLUME 90 fl (80.0-100.0); MEAN CORPUSCULAR HEMOGLOBIN 32 pg (27.0-31.0); MEAN CORPUSCULAR HGB CONC 35 g/dl (33.0-37.0); MEAN PLATELET VOLUME 9.3 fl (7.4-10.4); PLATELET COUNT 157 K/mm3 (130-400); RED BLOOD COUNT 3.74 M/mm3 (4.10-5.30); REDCELL DISTRIBUTION WIDTH-CV 15.7 % (11.5-14.5)
[2019-03-29 15:14] LABS: HEMATOCRIT 33.6 % (37.0-47.0)
[2019-03-29 15:25] LABS: ALANINE AMINOTRANSFERASE 72 U/L (9-52); ALBUMIN 4.2 gm/dL (3.5-5.0); ALKALINE PHOSPHATASE 312 U/L (50-136); ANION GAP 18 mmol/L (7-16); AST,SGOT 38 U/L (15-37); BILIRUBIN,TOTAL 1.3 mg/dL (0.0-1.0); BLOOD UREA NITROGEN 10 mg/dL (7-17); CALCIUM 8.6 mg/dL (8.4-10.2); CHLORIDE 105 mmol/L (98-107); CREATININE, serum 0.44 (0.52-1.25); LIPASE 79 U/L (23-300); SODIUM 133 mmol/L (137-145); TOTAL PROTEIN 8.2 gm/dL (6.4-8.2)
[2019-03-29] MEDS ORDERED: CEPHALEXIN500 M1 PO (15:35)
[2019-03-29] MEDS ORDERED: LEXAPRO 10MG10 MG PO (15:35)
[2019-03-29] MEDS ORDERED: ZOVIRAX400 MG PO (15:36)
[2019-03-29 15:37] LABS: CARBON DIOXIDE 10 mmol/L (22-30); GLUCOSE 445 mg/dL (74-106)
[2019-03-29 15:42] LABS: ACETONE,SERUM SMALL
[2019-03-29 15:46] LABS: BASOPHIL 1 % (0-2); LYMPHOCYTE 30 % (20.0-51.0); METAMYELOCYTE 1 % (0-0); NEUTROPHILS 65 % (42.0-75.2)
[2019-03-29 15:47] LABS: PLATELET ESTIMATE NORMAL (NORMAL)
[2019-03-29 15:48] LABS: POLYCHROMASIA 1+; STOMATOCYTE 1+
[2019-03-29 16:15] LABS: COLLECTION METHOD CLEAN CATCH
[2019-03-29 16:20] LABS: MUCOUS Present /lpf; PH 6 (5-8); URINE APPEARANCE Clear; URINE BACTERIA None Seen /hpf; URINE BILIRUBIN Negative (NEGATIVE); URINE BLOOD Negative (NEGATIVE); URINE COLOR Yellow; URINE GLUCOSE 3+ (NEGATIVE); URINE KETONE 2+ (NEGATIVE); URINE LEUKOCYTE ESTERASE Negative (NEGATIVE); URINE NITRATE Negative (NEGATIVE); URINE PROTEIN(semi-quant) Negative (NEGATIVE); URINE RBC 0-2 /hpf; URINE UROBILINOGEN Negative (NEGATIVE)
[2019-03-29] MEDS ORDERED: NOVOLOG 100U100 U/M1 SQ (16:30)
--- NOTE | 2019-03-29 16:59 | NUR ---
1638 Pt arrived on ED cart attached to monitors with Insulin gtt infusing at 6U/hr (confirmed with PHILL Whitley that Insulin gtt is 100U/100mL and that no additional IV or SQ insulin was given). Pt amubulated unassisted from cart to bed. Denies pain. Pt on phone video chat with family in good spirits with family. 1630 MD Nicolas notified of drop in blood glucose, orders for IV fluid changed MD Nicolas in pt room at 1645.
[2019-03-29 17:45] LABS: CALCIUM 7.4 mg/dL (8.4-10.2); CREATININE, serum 0.31 (0.52-1.25); POTASSIUM 4.1 mmol/L (3.4-5.0)
--- NOTE | 2019-03-29 19:40 | NUR ---
Report received from Luis Hill RN. Pt resting in bed at this time with television on. Call light with in reach as well as dinner tray.
[2019-03-29 20:09] LABS: CALCIUM 7.4 mg/dL (8.4-10.2); CREATININE, serum 0.32 (0.52-1.25); POTASSIUM 4.5 mmol/L (3.4-5.0)
[2019-03-29 22:13] LABS: CREATININE, serum 0.32 (0.52-1.25)
[2019-03-30] VITALS (486 sets, daily range): BP systolic 97–115; BP diastolic 59–80; PULSE 86–99; TEMP 97.9–98.7; O2SAT 95–100
[2019-03-30 00:05] LABS: CALCIUM 7.1 mg/dL (8.4-10.2); CREATININE, serum 0.28 (0.52-1.25); POTASSIUM 3.8 mmol/L (3.4-5.0)
[2019-03-30 06:23] LABS: ALBUMIN 2.9 gm/dL (3.5-5.0); BILIRUBIN,TOTAL 0.5 mg/dL (0.0-1.0); CALCIUM 7.4 mg/dL (8.4-10.2); CREATININE, serum 0.19 (0.52-1.25); POTASSIUM 3.3 mmol/L (3.4-5.0)
--- NOTE | 2019-03-30 07:05 | NUR ---
Report provided to Luis Hill RN.
[2019-03-30 07:54] LABS: MEAN CELL VOLUME 88 fl (80.0-100.0); MEAN CORPUSCULAR HGB CONC 36 g/dl (33.0-37.0); MEAN PLATELET VOLUME 9.4 fl (7.4-10.4); PLATELET COUNT 85 K/mm3 (130-400); RED BLOOD COUNT 2.86 M/mm3 (4.10-5.30); REDCELL DISTRIBUTION WIDTH-CV 15.8 % (11.5-14.5)
[2019-03-30 07:57] LABS: HEMATOCRIT 25.2 % (37.0-47.0); MEAN CORPUSCULAR HEMOGLOBIN 31 pg (27.0-31.0)
[2019-03-30 09:43] LABS: ANISOCYTOSIS 1+; BAND 18 % (0-10); LYMPHOCYTE 33 % (20.0-51.0); NEUTROPHILS 40 % (42.0-75.2); PLATELET ESTIMATE DECREASED (NORMAL)
--- NOTE | 2019-03-30 15:15 | NUR ---
Patient resides at home with her family (sister) in [place], [place] and plans to return home upon recovery. 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 Patient is independent with daily living activities and has no anticipated usage or need for durable medical equipment. Patient's primary care physician is Dr. Gisel Mcbride, her pharmacy is [facility], and she does not have advance directives completed or on file at this time. Patient's mother is supportive as needed and her contact # is [phone]. No further needs and social work professor will follow as needed.
[2019-03-30 17:27] LABS: CALCIUM 7.9 mg/dL (8.4-10.2); CREATININE, serum 0.27 (0.52-1.25); POTASSIUM 4.2 mmol/L (3.4-5.0)
--- NOTE | 2019-03-30 18:51 | NUR ---
Pt arrived from ICU via wheelchair. Pt sitting up in chair. Alert and oriented. Assessment complete. Soft spoken. Able to make needs known. Complained of pain to gums/teeth, "molars" rate 12/04. PRN motrin given. Denies any other pain or discomfort. Denies nausea. IV to Rt wrist/forearm clean, dry, intact with fluids running. Call light within reach.
[2019-03-31 04:00] VITALS: BP 110/73; PULSE 85; TEMP 97
--- NOTE | 2019-03-31 06:55 | NUR ---
RESTING QUIETLY. PT NOT VERY INTERACTIVE, VOCAL WITH STAFF. COMPLIANT WITH CARE.
[2019-03-31 07:08] LABS: BASO % 0.4 % (0.0-2.0); EOS % 1.5 % (0-4.0); GRAN # 1.3 (1.4-6.5); GRAN % 47.3 % (42.2-75.2); LYMPH # 1.1 (1.2-3.4); LYMPH % 40.2 % (20.0-51.0); MEAN CELL VOLUME 91 fl (80.0-100.0); MEAN CORPUSCULAR HGB CONC 35 g/dl (33.0-37.0); MEAN PLATELET VOLUME 9.7 fl (7.4-10.4); MONO # 0.3 (0.1-0.6); MONO % 10.2 % (1.7-9.3); PLATELET COUNT 78 K/mm3 (130-400); RED BLOOD COUNT 2.78 M/mm3 (4.10-5.30); REDCELL DISTRIBUTION WIDTH-CV 16.3 % (11.5-14.5)
[2019-03-31 07:10] LABS: HEMATOCRIT 25.3 % (37.0-47.0); HEMOGLOBIN 8.8 g/dl (12.5-16.0); MEAN CORPUSCULAR HEMOGLOBIN 32 pg (27.0-31.0)
[2019-03-31 07:35] LABS: ALBUMIN 3.2 gm/dL (3.5-5.0); BILIRUBIN,TOTAL 0.4 mg/dL (0.0-1.0); CALCIUM 8.1 mg/dL (8.4-10.2); CREATININE, serum 0.25 (0.52-1.25); MAGNESIUM 1.6 mg/dL (1.6-2.3); POTASSIUM 3.9 mmol/L (3.4-5.0); TOTAL PROTEIN 6.4 gm/dL (6.4-8.2)
[2019-03-31 07:39] VITALS: BP 108/70; PULSE 88; TEMP 98.5
--- NOTE | 2019-03-31 08:36 | NUR ---
Pt assessment complete. Pt is sitting up in bed upon entry, she is A/O x3, pt has a very flat affect. Her breathing is even and unlabored on RA. Pt denies SOB. No pain reported. Pt denies N/V. IVF infusing without complications. No needs at this time. Call light within reach.
[2019-03-31 12:29] VITALS: BP 110/70; PULSE 87; TEMP 98.5
--- NOTE | 2019-03-31 13:01 | NUR ---
Pt's blood sugar elevated, pt reports eating pudding. Kyrie crackers, chips and soda at bedside. Pt advised to try and watch sugar and carb intake. Friend at bedside. No needs at this time. Call light within reach.
[2019-03-31 16:22] VITALS: BP 107/67; PULSE 88; TEMP 98.5
--- NOTE | 2019-03-31 19:19 | NUR ---
Pt had uneventful day. No pain or concerns noted. BS elevated and treated per protocol. Pt has been up walking halls. No needs at this time. Call light within reach.
[2019-03-31 20:00] VITALS: BP 98/62; PULSE 96; TEMP 98.3
--- NOTE | 2019-03-31 22:14 | NUR ---
Pt doing ok. Resting in bed with VSS. Has no complaints at this time. Ambulatory. Call light within reach, will continue to monitor
[2019-04-01] VITALS: BP 103/61; PULSE 82; TEMP 98.4
--- NOTE | 2019-04-01 01:45 | NUR ---
Patient doing well. Resting in bed. Independent. Call light within reach, will continue to monitor
[2019-04-01 04:00] VITALS: BP 105/65; PULSE 76; TEMP 98.3
[2019-04-01 06:15] LABS: MEAN CELL VOLUME 93 fl (80.0-100.0); MEAN CORPUSCULAR HEMOGLOBIN 32 pg (27.0-31.0); MEAN CORPUSCULAR HGB CONC 34 g/dl (33.0-37.0); MEAN PLATELET VOLUME 10.3 fl (7.4-10.4); PLATELET COUNT 107 K/mm3 (130-400); RED BLOOD COUNT 3.17 M/mm3 (4.10-5.30); REDCELL DISTRIBUTION WIDTH-CV 17.2 % (11.5-14.5)
[2019-04-01 06:24] LABS: HEMATOCRIT 29.5 % (37.0-47.0)
[2019-04-01 06:34] LABS: CALCIUM 8.5 mg/dL (8.4-10.2); CREATININE, serum 0.25 (0.52-1.25); POTASSIUM 3.8 mmol/L (3.4-5.0)
[2019-04-01 07:27] LABS: BAND 11 % (0-10); EOSINOPHIL 2 % (0-4); LYMPHOCYTE 48 % (20.0-51.0); METAMYELOCYTE 1 % (0-0); NEUTROPHILS 27 % (42.0-75.2); PLATELET ESTIMATE DECREASED (NORMAL)
[2019-04-01 07:28] LABS: ANISOCYTOSIS 1+; HYPOCHROMIA 1+
[2019-04-01 08:04] VITALS: BP 95/57; PULSE 80; TEMP 97.9
--- NOTE | 2019-04-01 09:00 | NUR ---
Pt is awake and A/Ox4, sitting up in bed watching TV. She denies pain or discomfort. Saline lock to right wrist is free of complications. Insulin given post breakfast due to pt's blood sugar being 73 on AM labs. Pt updated on plan of care by Dr. Baldwin. Anticipating discharge later this morning.
[2019-04-01] MEDS ORDERED: LEVEMIR100 U/ML SQ (09:13)
--- NOTE | 2019-04-01 10:03 | NUR ---
Initial visit; Patient thanked Track Manager for looking in on her and offering spiritual care.
--- NOTE | 2019-04-01 12:43 | NUR ---
Pt was discharged home from hospital. All discharge instructions and paperwork was reviewed with pt who expressed understanding and had no questions. Saline lock removed, catheter tip intact. Meds returned from pharmacy. Pt was escorted out of facility .
== END 2019-04-01 12:45 | disposition home or self-care (01) | DRG 638 ==
LOC: COL.ER 14:15 → ICU 15:27 → MEDICAL 15:27
PROVIDERS: Emergency Medicine; Physician Assistant; ADMIT Internal Medicine
DX: E10.10 Type 1 diabetes mellitus with ketoacidosis without coma (principal); D61.818 Other pancytopenia; K75.4 Autoimmune hepatitis; B00.1 Herpesviral vesicular dermatitis; Z88.0 Allergy status to penicillin; Z88.1 Allergy status to other antibiotic agents
CPT/HCPCS: 99223-AI; 99232-AI; 99238; J1200; J1650; J1815; J2270; J2405; J3480; J7030

== ENCOUNTER 2019-05-24 07:54 | Inpatient (IN) | payer OTHER ==
[~2019-05-24] VITALS: Ht 170.2 cm; Wt 69.3 kg
[2019-05-24] VITALS (602 sets, daily range): BP systolic 98–133; BP diastolic 68–88; PULSE 104–108; TEMP 97.8–98.1; O2SAT 89–100
[~2019-05-24 07:54] MED LIST changes: +CEPHALEXIN500 M1 PO; +LEXAPRO 10MG10 MG PO; +ZOVIRAX400 MG PO
[2019-05-24] MEDS ORDERED: LEVEMIR100 U/ML SQ (09:41)
[2019-05-24 09:47] LABS: HEMATOCRIT 45.9 % (37.0-47.0); HEMOGLOBIN 14.4 g/dl (12.5-16.0); MEAN CELL VOLUME 95 fl (80.0-100.0); MEAN CORPUSCULAR HEMOGLOBIN 30 pg (27.0-31.0); MEAN CORPUSCULAR HGB CONC 31 g/dl (33.0-37.0); MEAN PLATELET VOLUME 9.9 fl (7.4-10.4); PLATELET COUNT 246 K/mm3 (130-400); RED BLOOD COUNT 4.83 M/mm3 (4.10-5.30); REDCELL DISTRIBUTION WIDTH-CV 16.1 % (11.5-14.5)
[2019-05-24 09:58] LABS: ALANINE AMINOTRANSFERASE 93 U/L (9-52); ALBUMIN 4.4 gm/dL (3.5-5.0); ALKALINE PHOSPHATASE 321 U/L (50-136); AST,SGOT 77 U/L (15-37); BILIRUBIN,TOTAL 1.6 mg/dL (0.0-1.0); BLOOD UREA NITROGEN 15 mg/dL (7-17); CALCIUM 7.7 mg/dL (8.4-10.2); CHLORIDE 109 mmol/L (98-107); LIPASE 34 U/L (23-300); POTASSIUM 5.7 mmol/L (3.4-5.0); SODIUM 136 mmol/L (137-145); TOTAL PROTEIN 8.7 gm/dL (6.4-8.2)
[2019-05-24 10:03] LABS: ARTERIAL BLD GAS O2 SATURATION 97.2 % (92-100); ARTERIAL BLD GAS TCO2 CT 2.2; ARTERIAL BLOOD GAS BASE EXCESS -27.7 (-2-2); ARTERIAL BLOOD GAS HCO3 1.9 meq/L (22-26)
[2019-05-24 10:05] LABS: ARTERIAL BLOOD GAS PCO2 8.3 mmHg (35-45); ARTERIAL BLOOD GAS PO2 132.1 mmHg (80-100); ARTERIAL BLOOD GAS pH 6.98 (7.35-7.45)
[2019-05-24 10:06] LABS: CARBON DIOXIDE < 5 mmol/L (22-30); GLUCOSE 487 mg/dL (74-106)
[2019-05-24 10:11] LABS: TROPONIN-I < 0.012 ng/mL (0.000-0.035)
[2019-05-24 10:44] LABS: BAND 20 % (0-10); LYMPHOCYTE 13 % (20.0-51.0); METAMYELOCYTE 1 % (0-0); MYELOCYTE 2 % (0-0); NEUTROPHILS 63 % (42.0-75.2)
[2019-05-24 10:45] LABS: ANISOCYTOSIS 1+; PLATELET ESTIMATE NORMAL (NORMAL)
[2019-05-24 10:52] LABS: COLLECTION METHOD CLEAN CATCH
[2019-05-24 11:00] LABS: MUCOUS Present /lpf; PH 5 (5-8); SQUAMOUS EPITHELIAL 0-2 /hpf; URINE APPEARANCE Clear; URINE BACTERIA None Seen /hpf; URINE BILIRUBIN Negative (NEGATIVE); URINE BLOOD Negative (NEGATIVE); URINE COLOR Yellow; URINE GLUCOSE 3+ (NEGATIVE); URINE KETONE 2+ (NEGATIVE); URINE LEUKOCYTE ESTERASE Negative (NEGATIVE); URINE NITRATE Negative (NEGATIVE); URINE PROTEIN(semi-quant) 1+ (NEGATIVE); URINE RBC 0-2 /hpf; URINE UROBILINOGEN Negative (NEGATIVE)
--- NOTE | 2019-05-24 11:00 | NUR ---
Patient arrives from ED via cart and ambulates with steady gait to bed. She is attached to monitors. Assessment and vitals as charted. Call light provided. Bed in low and locked position, rails up x3. MIVF rate and insulin gtt rate and concentration verified. Care assumed.
--- NOTE | 2019-05-24 12:06 | NUR ---
Rate of Glucose Decrease (per hour) Rate Change per Protocol (units/hour) (previous accucheck minus most recent accucheck) 50 mg/dL or less Increase rate 1 unit/hr 51-100 mg/dL NO CHANGE 101-150 mg/dL Decrease rate 1 unit/hr 151 mg/dL and more Decrease rate 2 units/hr and notify provider Maintain blood sugar between 120-200 mg/dL If blood sugar is less than 120, shut insulin pump off for 30 minutes only. Recheck blood sugar in 30 minutes. If blood sugar is above 120, restart insulin at 2 units less per hour. Special Instructions Initiate at 5 units/hour Monitor hourly, adjusting rate as necessary. Goal: decrease glucose level by 50-100 mg/dl per hour until reaching 250 mg/dl.
--- NOTE | 2019-05-24 12:17 | NUR ---
Dr. Valenzuela rounds at this time. Orders as entered CPOE.
[2019-05-24 15:41] LABS: BLOOD UREA NITROGEN 12 mg/dL (7-17); CALCIUM 6.8 mg/dL (8.4-10.2); CHLORIDE 116 mmol/L (98-107); CREATININE, serum 0.39 (0.52-1.25); GLUCOSE 170 mg/dL (74-106); MAGNESIUM 1.6 mg/dL (1.6-2.3); PHOSPHOROUS 2.6 mg/dL (2.5-4.5); POTASSIUM 4.4 mmol/L (3.4-5.0); SODIUM 137 mmol/L (137-145)
[2019-05-24 15:51] LABS: CARBON DIOXIDE < 5 mmol/L (22-30)
[2019-05-24 17:46] LABS: CALCIUM 6.5 mg/dL (8.4-10.2); CREATININE, serum 0.38 (0.52-1.25)
--- NOTE | 2019-05-24 19:10 | NUR ---
Patient eating dinner; family at bedside. Pt alert and oriented. Education provided to family and patient regarding receiving fluids and monitoring electrolytes.
[2019-05-24 20:05] LABS: CALCIUM 6.5 mg/dL (8.4-10.2); CREATININE, serum 0.39 (0.52-1.25); POTASSIUM 3.9 mmol/L (3.4-5.0)
[2019-05-24 22:03] LABS: CALCIUM 6.4 mg/dL (8.4-10.2); CREATININE, serum 0.41 (0.52-1.25); POTASSIUM 3.6 mmol/L (3.4-5.0)
[2019-05-25] VITALS (1184 sets, daily range): BP systolic 85–111; BP diastolic 60–78; PULSE 91–108; TEMP 97.8–98.7; O2SAT 92–100
[2019-05-25 00:20] LABS: CALCIUM 6.4 mg/dL (8.4-10.2); CREATININE, serum 0.34 (0.52-1.25); POTASSIUM 3.1 mmol/L (3.4-5.0)
[2019-05-25 02:48] LABS: CALCIUM 6.6 mg/dL (8.4-10.2); CREATININE, serum 0.3 (0.52-1.25)
[2019-05-25 02:49] LABS: POTASSIUM 2.9 mmol/L (3.4-5.0)
[2019-05-25 05:19] LABS: CALCIUM 6.6 mg/dL (8.4-10.2); CREATININE, serum 0.35 (0.52-1.25)
[2019-05-25 05:30] LABS: POTASSIUM 2.8 mmol/L (3.4-5.0)
[2019-05-25 06:38] LABS: CALCIUM 6.7 mg/dL (8.4-10.2); CREATININE, serum 0.31 (0.52-1.25); MAGNESIUM 1.5 mg/dL (1.6-2.3); POTASSIUM 3.5 mmol/L (3.4-5.0)
--- NOTE | 2019-05-25 07:05 | NUR ---
Bedside report given to PHILL Celestin. Patient care transfered.
[2019-05-25 09:10] LABS: CREATININE, serum 0.31 (0.52-1.25); POTASSIUM 3.6 mmol/L (3.4-5.0)
[2019-05-25 13:28] LABS: CREATININE, serum 0.33 (0.52-1.25); POTASSIUM 4.1 mmol/L (3.4-5.0)
--- NOTE | 2019-05-25 16:00 | NUR ---
Pt resting comfortably in bed. Denies pain or any other discomfort. Vitals stable at this time. Bed in low et locked position, call light within reach, will continue to monitor.
--- NOTE | 2019-05-25 20:00 | NUR ---
PT assessed, vitals stable, denies pain. Updated on POC.
[2019-05-25 20:10] LABS: CALCIUM 7.4 mg/dL (8.4-10.2); CREATININE, serum 0.32 (0.52-1.25); POTASSIUM 3.6 mmol/L (3.4-5.0)
[2019-05-26] VITALS (365 sets, daily range): BP systolic 97–110; BP diastolic 60–70; PULSE 83–99; TEMP 97.8–98.6; O2SAT 84–100
[2019-05-26 02:10] LABS: CALCIUM 7.4 mg/dL (8.4-10.2); CREATININE, serum 0.26 (0.52-1.25); POTASSIUM 3.4 mmol/L (3.4-5.0)
--- NOTE | 2019-05-26 03:00 | NUR ---
Insulin held for 1 hour after checking FSBS at 0200 which resulted in a glucose of 88 (held for 30 min). Then rechecked at 0230 which resulted in a glucose of 92. Patient given 2 packs of crackers to eat. Rechecked FSBS at 0300 which resulted in glucose of 185, restarted insulin gtt at 8u/hr.
[2019-05-26 07:09] LABS: MEAN CORPUSCULAR HGB CONC 34 g/dl (33.0-37.0); MEAN PLATELET VOLUME 9.4 fl (7.4-10.4); RED BLOOD COUNT 3.11 M/mm3 (4.10-5.30); REDCELL DISTRIBUTION WIDTH-CV 14.7 % (11.5-14.5)
[2019-05-26 07:16] LABS: ALBUMIN 2.7 gm/dL (3.5-5.0); BILIRUBIN UNCONJUGATED 0.2 mg/dL (0.0-1.1); BILIRUBIN,DIRECT 0.1 mg/dL (0.0-0.4); BILIRUBIN,TOTAL 0.4 mg/dL (0.0-1.0); CALCIUM 7.4 mg/dL (8.4-10.2); CREATININE, serum 0.23 (0.52-1.25); POTASSIUM 3.3 mmol/L (3.4-5.0); TOTAL PROTEIN 5.8 gm/dL (6.4-8.2)
[2019-05-26 07:56] LABS: HEMATOCRIT 27.2 % (37.0-47.0); HEMOGLOBIN 9.1 g/dl (12.5-16.0); MEAN CELL VOLUME 88 fl (80.0-100.0); MEAN CORPUSCULAR HEMOGLOBIN 29 pg (27.0-31.0); PLATELET COUNT 63 K/mm3 (130-400)
--- NOTE | 2019-05-26 08:00 | NUR ---
Report received from previosu shift nurse.Accuchecks obtained.Will continue to monitor.
[2019-05-26 08:02] LABS: BAND 6 % (0-10); LYMPHOCYTE 36 % (20.0-51.0); NEUTROPHILS 46 % (42.0-75.2); PLATELET ESTIMATE DECREASED (NORMAL)
--- NOTE | 2019-05-26 10:24 | NUR ---
iNSULIN DRIP STOPPED ORDERED.IV FLUIDS TO 125 ML/HR as ordered.
--- NOTE | 2019-05-26 10:26 | NUR ---
Software Consultant attended clinical rounds with the team. Patient states she is open to outpatient diabetic education. SW met with patient to discuss discharge planning. Patient lives in [place] with her mother, Laurence (ph#[phone]) and her two year old daughter. Patient sees BILL Rod at [facility] for primary care and obtains medications from either [facility] or [facility]. Patient does not currently have insurance and states she reapplied for Medicaid just a couple days ago. Patient states she was denied recently because [facility] did not know her daughter was living with her. Patient reports she has test strips and meter at home. Patient states she should be able to afford medications upon discharge and her mother may be able to provide some assistance with this also. Patient plans to return home upon discharge with her mother providing transportation. SW to continue to follow.
--- NOTE | 2019-05-26 10:50 | NUR ---
PATIENT ARRIVED TO ROOM 349 VIA WHEELCHAIR BY ICU NURSE. PATIENT ORIENTED TO ROOM. SEE SHIFT ASSESSMENT. PATIENT DENIES PAIN. CALL LIGHT WITHIN REACH. PATIENT DENIES ANY OTHER NEEDS AT THIS TIME.
--- NOTE | 2019-05-26 10:50 | NUR ---
PATIENT ARRIVED TO ROOM 349 VIA WHEELCHAIR FROM ICU. PATIENT ORIENTED TO ROOM. CALL LIGHT WITHIN REACH. PATIENT DENIES PAIN AT THIS TIME. PATIENT IS A&OX4. VSS. BOWEL SOUNDS ACTIVE ALL FOUR QUADRANTS. PATIENT TOLERATING DIET WITHOUT ANY COMPLAINTS OF N/V. INT TO LEFT HAND. NO OTHER NEEDS AT THIS TIME.
--- NOTE | 2019-05-26 10:58 | NUR ---
Pt transferred to room 349,report to Lance Aaron.
--- NOTE | 2019-05-26 15:10 | NUR ---
PATIENT AMBULATING IN HALLS WITH FRIEND.
--- NOTE | 2019-05-26 19:33 | NUR ---
TV ON. PATIENT DENIES NEEDS AT THIS TIME. REPORT GIVEN TO PHILL SEGUNDO.
--- NOTE | 2019-05-26 21:32 | NUR ---
Pt assessment completed. Alert and oriented with VSS. Insulin given this pm. Has IV in L Hand with NS running, CD&I. Denies pain or needs at this time. Was up walking halls ind. Call light within reach, will continue to monitor
[2019-05-27 00:48] VITALS: BP 105/65; PULSE 79; TEMP 98
[2019-05-27 03:38] VITALS: BP 108/69; PULSE 78; TEMP 97.7
--- NOTE | 2019-05-27 04:15 | NUR ---
Pt sleeping quietly in room. uneventful night. call light within reach, will continue to monitor
--- NOTE | 2019-05-27 06:32 | NUR ---
Pt BS of 394, gave novolin scheduled and novolog 5 units per MAR. Will let oncoming nurse know to recheck BS
[2019-05-27 07:41] LABS: MEAN CELL VOLUME 90 fl (80.0-100.0); MEAN CORPUSCULAR HEMOGLOBIN 30 pg (27.0-31.0); MEAN CORPUSCULAR HGB CONC 33 g/dl (33.0-37.0); MEAN PLATELET VOLUME 12.6 fl (7.4-10.4); PLATELET COUNT 51 K/mm3 (130-400); RED BLOOD COUNT 3.31 M/mm3 (4.10-5.30); REDCELL DISTRIBUTION WIDTH-CV 15.1 % (11.5-14.5)
[2019-05-27 07:48] LABS: CALCIUM 8.1 mg/dL (8.4-10.2); CREATININE, serum 0.25 (0.52-1.25); MAGNESIUM 1.4 mg/dL (1.6-2.3); POTASSIUM 4.3 mmol/L (3.4-5.0)
[2019-05-27 07:57] LABS: HEMATOCRIT 29.9 % (37.0-47.0)
[2019-05-27 08:13] VITALS: BP 103/68; PULSE 79; TEMP 98.4
--- NOTE | 2019-05-27 08:30 | NUR ---
Patient in bed resting. Alert and oriented x 3. Shift assessment complete. Fluids infusing per orders to left hand IV. Denies pain or further needs at this time.
[2019-05-27 08:54] LABS: BAND 7 % (0-10); BASOPHIL 1 % (0-2); EOSINOPHIL 4 % (0-4); LYMPHOCYTE 46 % (20.0-51.0); NEUTROPHILS 37 % (42.0-75.2); PLATELET ESTIMATE DECREASED (NORMAL)
[2019-05-27] MEDS ORDERED: MAG-OX 400400 MG/TAB PO ×2 (11:16)
[2019-05-27] MEDS ORDERED: NOVOLOG 100U100 U/M1 SQ ×2 (11:17)
[2019-05-27] MEDS ORDERED: NOVOLIN 70/30 710 ML SQ ×2 (11:19)
--- NOTE | 2019-05-27 12:40 | NUR ---
Discharge education provided to patient. Educated on maintaining follow up appointment with PCP. Patient also educated on medication changes and importance of medication. All questions answered. INT to left hand discontinued, catheter tip intact. Denies further needs at this time. Patient out with surgical staff.
[2019-05-27 13:21] VITALS: BP 112/76; PULSE 92; TEMP 98.2
--- NOTE | 2019-05-27 13:48 | NUR ---
Senior Nuclear Medicine Technologist was notified by Audrey from Pharmacy that patient to discharge today and cannot afford her discharge medications. Patient has been non compliant with diabetic medications prior to admission. Patient has follow up appointment at [facility] set up for 06/04/2019. CHAR provided patient medication voucher to be used at [facility] [address]. Patient to discharge home with her mother.
== END 2019-05-27 12:40 | disposition home or self-care (01) | DRG 639 ==
LOC: COL.ER 07:54 → SURG 10:12 → ICU 10:12 → SURG 05-26 10:59
PROVIDERS: Emergency Medicine; Physician Assistant; ADMIT Internal Medicine
DX: E10.10 Type 1 diabetes mellitus with ketoacidosis without coma (principal); K74.60 Unspecified cirrhosis of liver; K75.4 Autoimmune hepatitis; E83.42 Hypomagnesemia; E87.5 Hyperkalemia; F17.210 Nicotine dependence, cigarettes, uncomplicated; Z79.4 Long term (current) use of insulin; Z88.0 Allergy status to penicillin; Z88.1 Allergy status to other antibiotic agents; Z88.8 Allergy status to other drugs, medicaments and biological substances
CPT/HCPCS: 99223-AI; 99232-AI; 99239; J1815; J3475; J3480; J7030; J7500

== ENCOUNTER 2019-06-28 17:31 | Inpatient (IN) | payer OTHER ==
[2019-06-28] VITALS (186 sets, daily range): BP systolic 139; BP diastolic 97; PULSE 95; TEMP 97.7; O2SAT 96–100
[~2019-06-28] VITALS: Ht 170.2 cm; Wt 70.9 kg
[~2019-06-28 17:31] MED LIST changes: +NOVOLIN 70/30 710 ML SQ
[2019-06-28 18:49] LABS: BASO # 0.1 (0.0-0.2); BASO % 0.6 % (0.0-2.0); GRAN # 9.2 (1.4-6.5); GRAN % 81.5 % (42.2-75.2); HEMATOCRIT 44.5 % (37.0-47.0); HEMOGLOBIN 15.5 g/dl (12.5-16.0); LYMPH # 1.1 (1.2-3.4); LYMPH % 9.3 % (20.0-51.0); MEAN CELL VOLUME 91 fl (80.0-100.0); MEAN CORPUSCULAR HEMOGLOBIN 32 pg (27.0-31.0); MEAN CORPUSCULAR HGB CONC 35 g/dl (33.0-37.0); MEAN PLATELET VOLUME 9.6 fl (7.4-10.4); MONO # 0.8 (0.1-0.6); PLATELET COUNT 210 K/mm3 (130-400); RED BLOOD COUNT 4.91 M/mm3 (4.10-5.30); REDCELL DISTRIBUTION WIDTH-CV 18.9 % (11.5-14.5)
[2019-06-28 19:04] LABS: ALANINE AMINOTRANSFERASE 44 U/L (9-52); ALBUMIN 5.4 gm/dL (3.5-5.0); ALKALINE PHOSPHATASE 273 U/L (50-136); AST,SGOT 37 U/L (15-37); BILIRUBIN,TOTAL 1.5 mg/dL (0.0-1.0); BLOOD UREA NITROGEN 9 mg/dL (7-17); C-REACTIVE PROTEIN 1.5 mg/dL (0.0-0.9); CALCIUM 8.9 mg/dL (8.4-10.2); CHLORIDE 101 mmol/L (98-107); CREATININE, serum 0.44 (0.52-1.25); POTASSIUM 4.2 mmol/L (3.4-5.0); SODIUM 134 mmol/L (137-145); TOTAL PROTEIN 10.4 gm/dL (6.4-8.2)
[2019-06-28 19:06] LABS: GLUCOSE 564 mg/dL (74-106)
[2019-06-28 19:07] LABS: CARBON DIOXIDE < 5 mmol/L (22-30)
[2019-06-28 19:41] LABS: COLLECTION METHOD CLEAN CATCH
[2019-06-28 19:47] LABS: MUCOUS Present /lpf; PH 5 (5-8); SQUAMOUS EPITHELIAL 0-2 /hpf; URINE APPEARANCE Hazy; URINE BACTERIA None Seen /hpf; URINE BILIRUBIN Negative (NEGATIVE); URINE BLOOD Negative (NEGATIVE); URINE COLOR Straw; URINE GLUCOSE 3+ (NEGATIVE); URINE KETONE 2+ (NEGATIVE); URINE LEUKOCYTE ESTERASE Negative (NEGATIVE); URINE NITRATE Negative (NEGATIVE); URINE PROTEIN(semi-quant) Negative (NEGATIVE); URINE RBC 0-2 /hpf; URINE UROBILINOGEN Negative (NEGATIVE)
--- NOTE | 2019-06-28 20:00 | NUR ---
Report received by Fadi from ED.
[2019-06-28 20:11] LABS: MAGNESIUM 1.8 mg/dL (1.6-2.3)
--- NOTE | 2019-06-28 20:35 | NUR ---
Pt arrives via stretcher from ED X1 staff assist. Pt able to ambulate to ICU 05 bed with a steady gait. Complaints of Headache and left ear pain although ear pain is present when laying down. Pt notified headache will be addressed when hospitalist comes into assess the pt. (SEISMIC COMPUTER notified of pt arrival). Pt arrival with Insulin infusing. Assessment completed, no abnormal findings at this time.
[2019-06-28] MEDS ORDERED: NOVLOG SQ (20:45)
[2019-06-28] MEDS ORDERED: INSULIN 70/3100 U/ML SQ (20:46)
[2019-06-28] MEDS ORDERED: MOTRIN 800800 MG/TAB PO (20:47)
[2019-06-28 21:26] LABS: CALCIUM 7.3 mg/dL (8.4-10.2); CREATININE, serum 0.32 (0.52-1.25); POTASSIUM 3.3 mmol/L (3.4-5.0)
[2019-06-29] VITALS (1255 sets, daily range): BP systolic 88–115; BP diastolic 56–62; PULSE 93–100; TEMP 97.7–98.1; O2SAT 75–100
[2019-06-29 00:58] LABS: CREATININE, serum 0.29 (0.52-1.25); POTASSIUM 3.2 mmol/L (3.4-5.0)
[2019-06-29 03:15] LABS: CALCIUM 7.3 mg/dL (8.4-10.2); CREATININE, serum 0.23 (0.52-1.25); POTASSIUM 3.4 mmol/L (3.4-5.0)
--- NOTE | 2019-06-29 04:08 | NUR ---
Pt continues to rest in bed. Independent with movement in bed and has demonstrated use of call light with assistance to use the restroom.
[2019-06-29 04:54] LABS: BASO % 0.3 % (0.0-2.0); EOS # 0.1 (0.0-0.7); EOS % 0.8 % (0-4.0); GRAN # 4.4 (1.4-6.5); GRAN % 61.6 % (42.2-75.2); LYMPH # 1.9 (1.2-3.4); LYMPH % 26.6 % (20.0-51.0); MEAN CELL VOLUME 87 fl (80.0-100.0); MEAN CORPUSCULAR HGB CONC 36 g/dl (33.0-37.0); MEAN PLATELET VOLUME 8.9 fl (7.4-10.4); MONO # 0.7 (0.1-0.6); MONO % 10.3 % (1.7-9.3); REDCELL DISTRIBUTION WIDTH-CV 17.7 % (11.5-14.5)
[2019-06-29 04:56] LABS: HEMATOCRIT 28.8 % (37.0-47.0); HEMOGLOBIN 10.3 g/dl (12.5-16.0); MEAN CORPUSCULAR HEMOGLOBIN 31 pg (27.0-31.0); PLATELET COUNT 102 K/mm3 (130-400)
[2019-06-29 05:03] LABS: CALCIUM 7.4 mg/dL (8.4-10.2); CREATININE, serum 0.25 (0.52-1.25); POTASSIUM 3.3 mmol/L (3.4-5.0)
--- NOTE | 2019-06-29 06:55 | NUR ---
Bedside report provided to Erin Prado RN. Pt denies any questions, wants or needs at this time.
[2019-06-29 07:29] LABS: CALCIUM 7.7 mg/dL (8.4-10.2); CREATININE, serum 0.27 (0.52-1.25); POTASSIUM 3.3 mmol/L (3.4-5.0)
--- NOTE | 2019-06-29 08:37 | NUR ---
Dr. Valenzuela rounds at this time. Orders as entered CPOE.
[2019-06-29 12:30] LABS: BASO % 0.2 % (0.0-2.0); CALCIUM 7.7 mg/dL (8.4-10.2); CREATININE, serum 0.26 (0.52-1.25); EOS % 0.4 % (0-4.0); GRAN # 3.2 (1.4-6.5); GRAN % 64.9 % (42.2-75.2); HEMOGLOBIN 10.1 g/dl (12.5-16.0); LYMPH # 1.2 (1.2-3.4); LYMPH % 24.6 % (20.0-51.0); MEAN CELL VOLUME 86 fl (80.0-100.0); MEAN CORPUSCULAR HEMOGLOBIN 31 pg (27.0-31.0); MEAN CORPUSCULAR HGB CONC 36 g/dl (33.0-37.0); MONO # 0.5 (0.1-0.6); MONO % 9.3 % (1.7-9.3); PLATELET COUNT 87 K/mm3 (130-400); POTASSIUM 3.9 mmol/L (3.4-5.0); RED BLOOD COUNT 3.22 M/mm3 (4.10-5.30); REDCELL DISTRIBUTION WIDTH-CV 18.1 % (11.5-14.5)
[2019-06-29 13:07] LABS: HEMATOCRIT 27.8 % (37.0-47.0)
[2019-06-29 17:21] LABS: CALCIUM 7.6 mg/dL (8.4-10.2); CREATININE, serum 0.37 (0.52-1.25); POTASSIUM 3.5 mmol/L (3.4-5.0)
--- NOTE | 2019-06-29 19:09 | NUR ---
Bedside report received from PHILL Khan
--- NOTE | 2019-06-29 20:00 | NUR ---
Patient awake at this time and resting in bed watching TV. Patient has no complaints of pain and requests a diet soda, provided. Patient is alert and oriented x4. Vitals obtained and are stable. Assessment complete. Lungs are clear bilaterally with diminished bases. HR and rhythm are regular with normal S1 and S2. Bowel sounds are active x4. Peripheral pulses are palpable in all extremities. No edema noted. Patient has no further needs at this time. Will continue to monitor. Call light within reach.
[2019-06-29 20:34] LABS: CALCIUM 7.7 mg/dL (8.4-10.2); CREATININE, serum 0.43 (0.52-1.25); POTASSIUM 3.2 mmol/L (3.4-5.0)
[2019-06-30] VITALS (1140 sets, daily range): BP systolic 84–117; BP diastolic 48–78; PULSE 81–106; TEMP 98–98.2; O2SAT 85–100
[2019-06-30 05:39] LABS: BASO % 0.4 % (0.0-2.0); EOS % 0.9 % (0-4.0); GRAN # 0.8 (1.4-6.5); GRAN % 35.4 % (42.2-75.2); LYMPH # 1.1 (1.2-3.4); LYMPH % 47.8 % (20.0-51.0); MEAN CELL VOLUME 88 fl (80.0-100.0); MEAN CORPUSCULAR HGB CONC 36 g/dl (33.0-37.0); MEAN PLATELET VOLUME 9.3 fl (7.4-10.4); MONO # 0.4 (0.1-0.6); MONO % 15.5 % (1.7-9.3); PLATELET COUNT 54 K/mm3 (130-400); RED BLOOD COUNT 2.88 M/mm3 (4.10-5.30)
[2019-06-30 05:41] LABS: HEMATOCRIT 25.3 % (37.0-47.0); HEMOGLOBIN 9.1 g/dl (12.5-16.0); MEAN CORPUSCULAR HEMOGLOBIN 32 pg (27.0-31.0)
[2019-06-30 05:47] LABS: CALCIUM 7.3 mg/dL (8.4-10.2); CREATININE, serum 0.21 (0.52-1.25)
[2019-06-30 05:49] LABS: POTASSIUM 2.7 mmol/L (3.4-5.0)
--- NOTE | 2019-06-30 06:00 | NUR ---
Patient has only produced 150ml of urine tonight. Blader scan obtained and almost 800ml of urine found to be in the bladder. Dr. Baldwin called and order received for Lynn catheter placement. Catheter placed and immediate return of 725ml of trena urine with sediment visualized. Patient tolerated well. Securement device attached to left upper thigh. Pericare provided.
--- NOTE | 2019-06-30 07:14 | NUR ---
Bedside report given to PHILL Celestin
--- NOTE | 2019-06-30 07:40 | NUR ---
CALLED REGARDING K LEVEL OF 2.7. ORDERS RECEIVED TO REPLACE WITH 40MEQ AND RECHECK AT 1100.
--- NOTE | 2019-06-30 08:18 | NUR ---
PTS BG UP TO 360 AFTER BREAKFAST. DRIP HAD BEEN OFF FOR TWO HOURS AND PREVIOUS RATE WAS 12. WILL CUT IN HALF TO 6 UNITS AND RECHECK IN ONE HOUR.
--- NOTE | 2019-06-30 09:38 | NUR ---
INSULIN DRIP STOPPED. NOVOLOG SLIDING SCALE Q4HR STARTED AND LEVIMER GIVEN.
--- NOTE | 2019-06-30 11:14 | NUR ---
SUPPLY AND DISTRIBUTION MANAGER antony met with the patient to complete initial assessement. The patient lives in [place] with her mother, Laurence. The patient denies DME usage and reports independence with ADLs. The patient receives medical care at [facility] in [place] and patient receives medications from [facility]. The patient does not have advanced directives in the EMR. The patient plans to return home at discharge with Laurence providing transportation. SUPPLY AND DISTRIBUTION MANAGER student provided a GoodRx card, RxPRIME card, and a [facility] Resource Guide to the patient. There are no addtional needs at this time.
[2019-06-30 11:16] LABS: CALCIUM 7.5 mg/dL (8.4-10.2); CREATININE, serum 0.21 (0.52-1.25); POTASSIUM 3.8 mmol/L (3.4-5.0)
--- NOTE | 2019-06-30 11:35 | NUR ---
Initial visit; Patient thanked Brick Tender for looking in on her and offering spiritual care and keeping her in Brick Tender's prayers.
[2019-07-01] VITALS (387 sets, daily range): BP systolic 113–114; BP diastolic 58–70; PULSE 75–77; TEMP 97.8–98; O2SAT 68–100
[2019-07-01 05:00] LABS: EOS % 1.1 % (0-4.0); GRAN # 0.6 (1.4-6.5); GRAN % 35.8 % (42.2-75.2); LYMPH # 0.9 (1.2-3.4); LYMPH % 48.3 % (20.0-51.0); MEAN CELL VOLUME 90 fl (80.0-100.0); MEAN CORPUSCULAR HGB CONC 35 g/dl (33.0-37.0); MONO # 0.3 (0.1-0.6); MONO % 14.2 % (1.7-9.3); PLATELET COUNT 52 K/mm3 (130-400); RED BLOOD COUNT 2.81 M/mm3 (4.10-5.30); REDCELL DISTRIBUTION WIDTH-CV 18.9 % (11.5-14.5)
[2019-07-01 05:03] LABS: HEMATOCRIT 25.4 % (37.0-47.0); MEAN CORPUSCULAR HEMOGLOBIN 32 pg (27.0-31.0)
[2019-07-01 05:15] LABS: CALCIUM 7.6 mg/dL (8.4-10.2); CREATININE, serum 0.26 (0.52-1.25); POTASSIUM 3.3 mmol/L (3.4-5.0)
[2019-07-01] MEDS ORDERED: OMNICEF 300MG300 MG PO (10:49)
--- NOTE | 2019-07-01 13:43 | NUR ---
The patient discharged home today, 07/01. There are no additional needs at this time.
== END 2019-07-01 11:05 | disposition home or self-care (01) | DRG 639 ==
LOC: COL.ER 17:31 → ICU 19:22
PROVIDERS: Family Medicine; Internal Medicine Pulmonary Disease; Nurse Practitioner Family; Physician Assistant; Student in an Organized Health Care Education/Training Program; ADMIT Internal Medicine
DX: E10.10 Type 1 diabetes mellitus with ketoacidosis without coma (principal); F17.210 Nicotine dependence, cigarettes, uncomplicated; H66.92 Otitis media, unspecified, left ear; K75.4 Autoimmune hepatitis; E87.6 Hypokalemia; J06.9 Acute upper respiratory infection, unspecified; D69.6 Thrombocytopenia, unspecified; Z88.0 Allergy status to penicillin; Z91.14 Patient's other noncompliance with medication regimen
CPT/HCPCS: 99223-AI; 99232-AI; 99233-AI; 99239; J1650; J1815; J2405; J3480; J7030; J7120

== ENCOUNTER 2019-07-07 15:29 | Inpatient (IN) | payer MEDICAID ==
[~2019-07-07] VITALS: Ht 170.2 cm; Wt 64.8 kg
[~2019-07-07 15:29] MED LIST changes: +INSULIN 70/3100 U/ML SQ; +MOTRIN 800800 MG/TAB PO; +OMNICEF 300MG300 MG PO
[2019-07-07 17:29] LABS: MEAN CELL VOLUME 100 fl (80.0-100.0); MEAN CORPUSCULAR HEMOGLOBIN 32 pg (27.0-31.0); MEAN CORPUSCULAR HGB CONC 33 g/dl (33.0-37.0); MEAN PLATELET VOLUME 9.3 fl (7.4-10.4); PLATELET COUNT 438 K/mm3 (130-400); RED BLOOD COUNT 4.32 M/mm3 (4.10-5.30); REDCELL DISTRIBUTION WIDTH-CV 18.3 % (11.5-14.5)
[2019-07-07 17:36] LABS: ACETONE,SERUM SMALL
[2019-07-07 17:37] LABS: ALANINE AMINOTRANSFERASE 69 U/L (9-52); ALBUMIN 4.6 gm/dL (3.5-5.0); ALKALINE PHOSPHATASE 280 U/L (50-136); AST,SGOT 81 U/L (15-37); BLOOD UREA NITROGEN 13 mg/dL (7-17); CALCIUM 7.7 mg/dL (8.4-10.2); CHLORIDE 105 mmol/L (98-107); CREATININE, serum 0.62 (0.52-1.25); LIPASE 91 U/L (23-300); POTASSIUM 5.4 mmol/L (3.4-5.0); SODIUM 134 mmol/L (137-145); TOTAL PROTEIN 8.8 gm/dL (6.4-8.2)
[2019-07-07 17:40] LABS: GLUCOSE 598 mg/dL (74-106)
[2019-07-07 17:41] LABS: CARBON DIOXIDE < 5 mmol/L (22-30)
[2019-07-07 18:49] LABS: BAND 4 % (0-10); LYMPHOCYTE 4 % (20.0-51.0); NEUTROPHILS 86 % (42.0-75.2)
[2019-07-07 18:50] LABS: PLATELET ESTIMATE INCREASED (NORMAL)
[2019-07-07 19:16] LABS: ARTERIAL BLD GAS O2 SATURATION 98.3 % (92-100); ARTERIAL BLD GAS TCO2 CT 2.5; ARTERIAL BLOOD GAS HCO3 2.3 meq/L (22-26)
[2019-07-07 19:17] LABS: ARTERIAL BLOOD GAS PCO2 9.3 mmHg (35-45); ARTERIAL BLOOD GAS PO2 142.5 mmHg (80-100)
--- NOTE | 2019-07-07 19:35 | NUR ---
Received report from PHILL Tovar.
[2019-07-07 19:47] LABS: PROTHROMBIN TIME 11.5 SECONDS (9.7-12.8)
[2019-07-07 19:49] LABS: PARTIAL THROMBOPLASTIN TIME 31.1 SECONDS (26.0-37.0)
[2019-07-07 19:58] LABS: MAGNESIUM 1.9 mg/dL (1.6-2.3); PHOSPHOROUS 5.3 mg/dL (2.5-4.5)
--- NOTE | 2019-07-07 20:23 | NUR ---
Patient arrives to ICU room 3 via ED stretcher. Patient able to ambulate to ICU bed. Initial vitals within normal limits. Patient arrives with insulin drip infusion at 5 units/hr and Levaquin infusing at 100 mL/hr. Patient reports pain in neck at central line site; described as soreness and rated 7/10. Patient's blood glucose at 2030 was 379; drip titrated according to orders. Nimisha notified of patient's arrival. Will continue to monitor.
[2019-07-07 20:40] VITALS: O2SAT 100
[2019-07-07 22:22] LABS: COLLECTION METHOD CLEAN CATCH
[2019-07-07 22:29] LABS: MUCOUS Present /lpf; PH 5 (5-8); SQUAMOUS EPITHELIAL 0-2 /hpf; URINE APPEARANCE Hazy; URINE BACTERIA None Seen /hpf; URINE BILIRUBIN Negative (NEGATIVE); URINE BLOOD 1+ (NEGATIVE); URINE COLOR Yellow; URINE GLUCOSE 3+ (NEGATIVE); URINE KETONE 2+ (NEGATIVE); URINE LEUKOCYTE ESTERASE Negative (NEGATIVE); URINE NITRATE Negative (NEGATIVE); URINE PROTEIN(semi-quant) 2+ (NEGATIVE); URINE UROBILINOGEN Negative (NEGATIVE)
[2019-07-07 22:34] VITALS: BP 113/78; PULSE 86; TEMP 97.6
[2019-07-07 22:39] LABS: TRICYCLIC ANTIDEPRESS URINE NEGATIVE
[2019-07-07 22:41] LABS: BLOOD UREA NITROGEN 10 mg/dL (7-17); CALCIUM 6.7 mg/dL (8.4-10.2); CHLORIDE 111 mmol/L (98-107); CREATININE, serum 0.32 (0.52-1.25); GLUCOSE 202 mg/dL (74-106); POTASSIUM 3.3 mmol/L (3.4-5.0); SODIUM 134 mmol/L (137-145)
[2019-07-07 22:48] LABS: CARBON DIOXIDE < 5 mmol/L (22-30)
[2019-07-08] VITALS (696 sets, daily range): BP systolic 97–114; BP diastolic 51–81; PULSE 94–107; TEMP 97.9–98.9; O2SAT 85–100
[2019-07-08 00:16] LABS: CALCIUM 6.5 mg/dL (8.4-10.2); CREATININE, serum 0.32 (0.52-1.25); POTASSIUM 3.3 mmol/L (3.4-5.0)
[2019-07-08 01:57] LABS: CALCIUM 6.8 mg/dL (8.4-10.2); CREATININE, serum 0.3 (0.52-1.25); POTASSIUM 3.4 mmol/L (3.4-5.0)
[2019-07-08 04:17] LABS: CALCIUM 6.9 mg/dL (8.4-10.2); CREATININE, serum 0.29 (0.52-1.25); POTASSIUM 3.6 mmol/L (3.4-5.0)
[2019-07-08 06:29] LABS: BASO % 0.1 % (0.0-2.0); EOS % 0.5 % (0-4.0); GRAN # 5.5 (1.4-6.5); GRAN % 69.1 % (42.2-75.2); LYMPH # 1.5 (1.2-3.4); LYMPH % 19.3 % (20.0-51.0); MEAN CORPUSCULAR HGB CONC 36 g/dl (33.0-37.0); MEAN PLATELET VOLUME 9.3 fl (7.4-10.4); MONO # 0.8 (0.1-0.6); MONO % 10.4 % (1.7-9.3); RED BLOOD COUNT 3.23 M/mm3 (4.10-5.30); REDCELL DISTRIBUTION WIDTH-CV 17.9 % (11.5-14.5)
[2019-07-08 06:43] LABS: HEMATOCRIT 29.3 % (37.0-47.0); HEMOGLOBIN 10.4 g/dl (12.5-16.0); MEAN CELL VOLUME 91 fl (80.0-100.0); MEAN CORPUSCULAR HEMOGLOBIN 32 pg (27.0-31.0); PLATELET COUNT 125 K/mm3 (130-400)
[2019-07-08 06:51] LABS: ALBUMIN 2.9 gm/dL (3.5-5.0); BILIRUBIN,TOTAL 0.5 mg/dL (0.0-1.0); CALCIUM 6.8 mg/dL (8.4-10.2); CREATININE, serum 0.29 (0.52-1.25); POTASSIUM 3.5 mmol/L (3.4-5.0); TOTAL PROTEIN 5.9 gm/dL (6.4-8.2)
--- NOTE | 2019-07-08 07:05 | NUR ---
Report given to PHILL Khan.
--- NOTE | 2019-07-08 07:05 | NUR ---
Report received from PHILL Bernabe.
[2019-07-08 07:39] LABS: CREATININE, serum 0.28 (0.52-1.25); POTASSIUM 3.8 mmol/L (3.4-5.0)
--- NOTE | 2019-07-08 08:00 | NUR ---
Assessment complete. Remains on insulin gtt and IVF. Pt's mom at bedside. Updated on pt status and plan of care. Pt eating breakfast at this time. CAll light in reach. Will monitor.
--- NOTE | 2019-07-08 09:52 | NUR ---
Message left at diabetes education for diabetic consultation.
[2019-07-08 10:03] LABS: CALCIUM 7.1 mg/dL (8.4-10.2); CREATININE, serum 0.29 (0.52-1.25)
[2019-07-08 13:16] LABS: CALCIUM 7.4 mg/dL (8.4-10.2); CREATININE, serum 0.25 (0.52-1.25); POTASSIUM 3.7 mmol/L (3.4-5.0)
--- NOTE | 2019-07-08 13:23 | NUR ---
Updated Dr Baldwin on pt's labs and blood sugar checks. Orders to decrease insulin gtt to 3units/hr. Decrease IVF to 150ml/hr.
--- NOTE | 2019-07-08 13:45 | NUR ---
Initial visit; Patient and Mom thanked Human Services Assistant for looking in on Lita and offering prayer and God's blessings.
[2019-07-08 16:05] LABS: CALCIUM 7.3 mg/dL (8.4-10.2); CREATININE, serum 0.23 (0.52-1.25); POTASSIUM 3.4 mmol/L (3.4-5.0)
[2019-07-08 19:03] LABS: CALCIUM 7.6 mg/dL (8.4-10.2); CREATININE, serum 0.25 (0.52-1.25); POTASSIUM 3.3 mmol/L (3.4-5.0)
--- NOTE | 2019-07-08 19:41 | NUR ---
report given to PHILL Irving.
[2019-07-09] VITALS (450 sets, daily range): BP systolic 100–120; BP diastolic 70–82; PULSE 80–96; TEMP 97.9–98.6; O2SAT 87–100
--- NOTE | 2019-07-09 | NUR ---
Resting in bed using cell phone; no concerns or complaints at this time.
[2019-07-09 04:50] LABS: CALCIUM 7.7 mg/dL (8.4-10.2); CREATININE, serum 0.4 (0.52-1.25); POTASSIUM 3.9 mmol/L (3.4-5.0)
--- NOTE | 2019-07-09 13:31 | NUR ---
KINGS hardy met with the patient to complete initial intake. The patient lives in [place] with her mother, Laurence. The patient's PCP is Dr. Lesli Echols at [facility] in [place] and receives medications from [facility] in [place]. The patient does not have advanced directives in the EMR. The patient plan to return home with her mother. Due to readmission, KINGS hardy obtained permission to contact the patient's mother, Laurence. KINGS hardy contacted Laurence Laurence reports she feels she is an "enabler" to her daughter with the patient's diet habits and lets her have anything to eat. Laurence reports she is willing to support her daughter. KINGS hardy addressed follow up appointment and an appointment was made at [facility] in for 07/15 at 1345. Laurence was agreeable to transporting the patient to this appointment. KINGS hardy conveyed to [facility] that the patient needs to be referred to Diabetes Education due to hospitalizations. pharmacy services representative will continue to follow.
[2019-07-09 16:22] LABS: CALCIUM 7.7 mg/dL (8.4-10.2); POTASSIUM 4.1 mmol/L (3.4-5.0)
[2019-07-09 16:33] LABS: CREATININE, serum 0.29 (0.52-1.25)
--- NOTE | 2019-07-09 21:00 | NUR ---
Patient resting in bed watching tv; no concerns or complaints at this time.
[2019-07-10] VITALS (360 sets, daily range): BP systolic 104–112; BP diastolic 68–83; PULSE 72–93; TEMP 97.9; O2SAT 91–100
[2019-07-10 08:20] LABS: CALCIUM 7.9 mg/dL (8.4-10.2); CREATININE, serum 0.23 (0.52-1.25); POTASSIUM 4.2 mmol/L (3.4-5.0)
--- NOTE | 2019-07-10 09:54 | NUR ---
Follow-up visit; Lita is feeling better and thanked Wool Presser for stopping and wishing her well.
[2019-07-10] MEDS ORDERED: ZOLOFT 25MG25 MG PO (10:48)
[2019-07-10] MEDS ORDERED: INSULIN 70/3100 U/ML SQ (10:56)
[2019-07-10] MEDS ORDERED: NOVLOG SQ (10:56)
--- NOTE | 2019-07-10 11:11 | NUR ---
The patient is to disharge home this day, 07/10. The patient is to have a follow-up appointment at [facility] in [place] on 07/15. The patient's mother was agreeable to transporting patient to this appointment. There are no additional needs at this time.
== END 2019-07-10 12:15 | disposition home or self-care (01) | DRG 639 ==
LOC: COL.ER 15:29 → ICU 17:28
PROVIDERS: Emergency Medicine; Nurse Practitioner Family; Student in an Organized Health Care Education/Training Program; ADMIT Family Medicine
DX: E10.10 Type 1 diabetes mellitus with ketoacidosis without coma (principal); F17.210 Nicotine dependence, cigarettes, uncomplicated; F41.1 Generalized anxiety disorder; F12.980 Cannabis use, unspecified with anxiety disorder; K75.4 Autoimmune hepatitis; Z88.0 Allergy status to penicillin; Z79.4 Long term (current) use of insulin; Z88.1 Allergy status to other antibiotic agents; Z91.19 Patient's noncompliance with other medical treatment and regimen
CPT/HCPCS: 99222-AI; 99232-AI; 99233-AI; 99239; J1650; J1815; J1956; J2405; J3480; J7030; J7042; J7120

== ENCOUNTER 2019-08-11 07:50 | Inpatient (IN) | payer MEDICAID ==
[~2019-08-11] VITALS: Ht 160 cm; Wt 60.8 kg
[2019-08-11] VITALS (647 sets, daily range): BP systolic 100–135; BP diastolic 73–95; PULSE 92–129; TEMP 96.2–98.4; O2SAT 77–100
[~2019-08-11 07:50] MED LIST changes: +ZOLOFT 25MG25 MG PO
[2019-08-11 09:32] LABS: HEMATOCRIT 37.9 % (37.0-47.0); HEMOGLOBIN 12.4 g/dl (12.5-16.0); MEAN CELL VOLUME 96 fl (80.0-100.0); MEAN CORPUSCULAR HEMOGLOBIN 31 pg (27.0-31.0); MEAN CORPUSCULAR HGB CONC 33 g/dl (33.0-37.0); MEAN PLATELET VOLUME 9.7 fl (7.4-10.4); PLATELET COUNT 426 K/mm3 (130-400); RED BLOOD COUNT 3.97 M/mm3 (4.10-5.30)
[2019-08-11 09:33] LABS: ARTERIAL BLD GAS O2 SATURATION 97.8 % (92-100); ARTERIAL BLD GAS TCO2 CT 1.8; ARTERIAL BLOOD GAS BASE EXCESS -28.8 (-2-2); ARTERIAL BLOOD GAS HCO3 1.5 meq/L (22-26)
[2019-08-11 09:34] LABS: ARTERIAL BLOOD GAS PCO2 7.3 mmHg (35-45); ARTERIAL BLOOD GAS PO2 141.5 mmHg (80-100); ARTERIAL BLOOD GAS pH 6.94 (7.35-7.45)
[2019-08-11 09:55] LABS: ALANINE AMINOTRANSFERASE 80 U/L (4-34); ALBUMIN 4.4 gm/dL (3.5-5.0); ALKALINE PHOSPHATASE 362 U/L (50-136); AST,SGOT 50 U/L (15-37); BILIRUBIN,TOTAL 1.2 mg/dL (0.0-1.0); BLOOD UREA NITROGEN 11 mg/dL (7-17); CALCIUM 7.6 mg/dL (8.4-10.2); CHLORIDE 106 mmol/L (98-107); CREATININE, serum 0.52 (0.52-1.25); SODIUM 134 mmol/L (137-145)
[2019-08-11 10:08] LABS: BAND 11 % (0-10); EOSINOPHIL 2 % (0-4); LYMPHOCYTE 17 % (20.0-51.0); METAMYELOCYTE 2 % (0-0); NEUTROPHILS 63 % (42.0-75.2); PLATELET ESTIMATE INCREASED (NORMAL)
[2019-08-11 10:09] LABS: ANISOCYTOSIS 1+
[2019-08-11 10:14] LABS: GLUCOSE 564 mg/dL (74-106)
[2019-08-11 10:15] LABS: CARBON DIOXIDE < 5 mmol/L (22-30)
[2019-08-11 10:17] LABS: C-REACTIVE PROTEIN < 0.5 mg/dL (0.0-0.9)
[2019-08-11 10:41] LABS: COLLECTION METHOD CLEAN CATCH
[2019-08-11 10:55] LABS: MUCOUS Present /lpf; PH 5 (5-8); SQUAMOUS EPITHELIAL 0-2 /hpf; URINE APPEARANCE Hazy; URINE BACTERIA None Seen /hpf; URINE BILIRUBIN Negative (NEGATIVE); URINE BLOOD Negative (NEGATIVE); URINE COLOR Straw; URINE GLUCOSE 3+ (NEGATIVE); URINE KETONE 2+ (NEGATIVE); URINE LEUKOCYTE ESTERASE Negative (NEGATIVE); URINE NITRATE Negative (NEGATIVE); URINE PROTEIN(semi-quant) 1+ (NEGATIVE); URINE RBC 0-2 /hpf; URINE UROBILINOGEN Negative (NEGATIVE)
--- NOTE | 2019-08-11 11:40 | NUR ---
Insulin drip running per pump at 5 units/hour from ED.
--- NOTE | 2019-08-11 11:40 | NUR ---
Patient admitted to ICU 7 from ED via stretcher with dx:DKA. Patient able to stand and transfer self into bed. IV drips verified by this RN. Patient alert/confused, does answer yes/no questions. MM dry and cracked, asks for water. Talked with patient re: NPO status, will continue to educate,
--- NOTE | 2019-08-11 14:07 | NUR ---
Insulin drip titrated by Valentina Patiño RN
[2019-08-11 14:15] LABS: BLOOD UREA NITROGEN 10 mg/dL (7-17); CHLORIDE 110 mmol/L (98-107); CREATININE, serum 0.49 (0.52-1.25); GLUCOSE 283 mg/dL (74-106); POTASSIUM 4.8 mmol/L (3.4-5.0); SODIUM 135 mmol/L (137-145)
[2019-08-11 14:17] LABS: CARBON DIOXIDE < 5 mmol/L (22-30)
--- NOTE | 2019-08-11 15:19 | NUR ---
Insulin drip titrated by Valentina Patiño RN
[2019-08-11 15:48] LABS: BLOOD UREA NITROGEN 10 mg/dL (7-17); CALCIUM 6.9 mg/dL (8.4-10.2); CHLORIDE 111 mmol/L (98-107); CREATININE, serum 0.43 (0.52-1.25); GLUCOSE 304 mg/dL (74-106); POTASSIUM 4.6 mmol/L (3.4-5.0); SODIUM 137 mmol/L (137-145)
[2019-08-11 15:51] LABS: CARBON DIOXIDE < 5 mmol/L (22-30)
--- NOTE | 2019-08-11 17:00 | NUR ---
IV pulled out by patient. Attempt x2 by this RN, difficult stick. Dr. Baldwin notifed, order for CL at this time. Will notify surgeon litigation support analyst for placement
[2019-08-11 17:28] LABS: BLOOD UREA NITROGEN 9 mg/dL (7-17); CALCIUM 6.8 mg/dL (8.4-10.2); CHLORIDE 115 mmol/L (98-107); GLUCOSE 292 mg/dL (74-106); POTASSIUM 4.2 mmol/L (3.4-5.0); SODIUM 139 mmol/L (137-145)
[2019-08-11 17:59] LABS: CARBON DIOXIDE < 5 mmol/L (22-30)
[2019-08-11 19:10] LABS: BLOOD UREA NITROGEN 9 mg/dL (7-17); CHLORIDE 114 mmol/L (98-107); CREATININE, serum 0.43 (0.52-1.25); GLUCOSE 287 mg/dL (74-106); POTASSIUM 4.4 mmol/L (3.4-5.0); SODIUM 139 mmol/L (137-145)
[2019-08-11 19:12] LABS: CARBON DIOXIDE < 5 mmol/L (22-30)
--- NOTE | 2019-08-11 19:15 | NUR ---
Dr. Kimball at bedside for CL placement. Time out done. Patient needs much emotional support for procedure. RN x2 at bedside for entire procedure.
--- NOTE | 2019-08-11 19:30 | NUR ---
Bedside report given to Sanjuana POLLOCK.
[2019-08-11 21:16] LABS: BLOOD UREA NITROGEN 9 mg/dL (7-17); CALCIUM 7.1 mg/dL (8.4-10.2); CHLORIDE 116 mmol/L (98-107); CREATININE, serum 0.44 (0.52-1.25); GLUCOSE 277 mg/dL (74-106); POTASSIUM 3.8 mmol/L (3.4-5.0); SODIUM 141 mmol/L (137-145)
[2019-08-11 21:21] LABS: CARBON DIOXIDE < 5 mmol/L (22-30)
[2019-08-11 22:01] LABS: ARTERIAL BLD GAS O2 SATURATION 98.4 % (92-100); ARTERIAL BLD GAS TCO2 CT 2.1; ARTERIAL BLOOD GAS BASE EXCESS -27.8 (-2-2); ARTERIAL BLOOD GAS HCO3 1.9 meq/L (22-26)
[2019-08-11 22:05] LABS: ARTERIAL BLOOD GAS PCO2 8.1 mmHg (35-45); ARTERIAL BLOOD GAS PO2 133.5 mmHg (80-100); ARTERIAL BLOOD GAS pH 6.98 (7.35-7.45)
[2019-08-11 23:19] LABS: BLOOD UREA NITROGEN 9 mg/dL (7-17); CHLORIDE 119 mmol/L (98-107); CREATININE, serum 0.38 (0.52-1.25); GLUCOSE 156 mg/dL (74-106); POTASSIUM 3.7 mmol/L (3.4-5.0); SODIUM 142 mmol/L (137-145)
[2019-08-11 23:40] LABS: CARBON DIOXIDE < 5 mmol/L (22-30)
[2019-08-12] VITALS (1176 sets, daily range): BP systolic 98–125; BP diastolic 60–77; PULSE 107–129; TEMP 97.9–98.8; O2SAT 86–100
--- NOTE | 2019-08-12 01:12 | NUR ---
Central line placed and insulin and IV fluids restarted at 1944. Dr. Baldwin called at 2149 with orders for stat ABG and LR bolus and to call him back with the results. New orders then received after ABG results for sodium bicarb. See eMAR. Patient laying in bed, able to follow commands but needs much prompting at this time. Patient frequently asks for water. Mother visited [facility] and asked questions about patient status and plan, she states she will try to make it in the AM for rounds to speak with hospitalist.
[2019-08-12 04:38] LABS: BASO % 0.2 % (0.0-2.0); GRAN # 10.1 (1.4-6.5); GRAN % 83.7 % (42.2-75.2); LYMPH # 0.8 (1.2-3.4); LYMPH % 6.7 % (20.0-51.0); MEAN CELL VOLUME 92 fl (80.0-100.0); MEAN CORPUSCULAR HGB CONC 34 g/dl (33.0-37.0); MONO % 8.3 % (1.7-9.3); RED BLOOD COUNT 2.66 M/mm3 (4.10-5.30); REDCELL DISTRIBUTION WIDTH-CV 16.3 % (11.5-14.5)
[2019-08-12 04:48] LABS: ALBUMIN 3.4 gm/dL (3.5-5.0); BILIRUBIN,TOTAL 0.9 mg/dL (0.0-1.0); CALCIUM 7.1 mg/dL (8.4-10.2); CREATININE, serum 0.35 (0.52-1.25); TOTAL PROTEIN 6.5 gm/dL (6.4-8.2)
[2019-08-12 04:50] LABS: POTASSIUM 2.5 mmol/L (3.4-5.0)
[2019-08-12 04:52] LABS: HEMATOCRIT 24.5 % (37.0-47.0); HEMOGLOBIN 8.4 g/dl (12.5-16.0); MEAN CORPUSCULAR HEMOGLOBIN 32 pg (27.0-31.0); PLATELET COUNT 101 K/mm3 (130-400)
--- NOTE | 2019-08-12 04:53 | NUR ---
[facility] notified of critical potassium. Awaiting replacement orders.
--- NOTE | 2019-08-12 05:56 | NUR ---
Patient had emesis x1. Still requesting ice chips, told could not while nauseated. Patient resting in bed after using commode. More coherent and able to follow directions faster than earlier in the night. Central line infusing well with good blood return from all lumens. Bed alarm on but patient does use call light now.
[2019-08-12 13:54] LABS: CALCIUM 7.2 mg/dL (8.4-10.2); CREATININE, serum 0.26 (0.52-1.25)
[2019-08-12 13:59] LABS: POTASSIUM 2.8 mmol/L (3.4-5.0)
--- NOTE | 2019-08-12 19:20 | NUR ---
Bedside report given to Ronald POLLOCK
[2019-08-13] VITALS (928 sets, daily range): BP systolic 107–114; BP diastolic 47–74; PULSE 95–119; TEMP 97.5–98.7; O2SAT 86–100
[2019-08-13 01:32] LABS: CALCIUM 7.6 mg/dL (8.4-10.2); CREATININE, serum 0.26 (0.52-1.25)
[2019-08-13 01:36] LABS: POTASSIUM 2.8 mmol/L (3.4-5.0)
[2019-08-13 06:18] LABS: EOS % 0.3 % (0-4.0); GRAN # 1.8 (1.4-6.5); GRAN % 60.9 % (42.2-75.2); LYMPH # 0.9 (1.2-3.4); LYMPH % 29.8 % (20.0-51.0); MEAN CELL VOLUME 92 fl (80.0-100.0); MEAN CORPUSCULAR HGB CONC 34 g/dl (33.0-37.0); MEAN PLATELET VOLUME 9.5 fl (7.4-10.4); MONO # 0.3 (0.1-0.6); MONO % 8.7 % (1.7-9.3); PLATELET COUNT 53 K/mm3 (130-400); RED BLOOD COUNT 2.47 M/mm3 (4.10-5.30); REDCELL DISTRIBUTION WIDTH-CV 16.5 % (11.5-14.5)
[2019-08-13 06:21] LABS: HEMATOCRIT 22.7 % (37.0-47.0); HEMOGLOBIN 7.6 g/dl (12.5-16.0); MEAN CORPUSCULAR HEMOGLOBIN 31 pg (27.0-31.0)
[2019-08-13 06:27] LABS: CALCIUM 7.2 mg/dL (8.4-10.2); CREATININE, serum 0.22 (0.52-1.25); POTASSIUM 4.3 mmol/L (3.4-5.0)
--- NOTE | 2019-08-13 08:18 | NUR ---
Shift assessment complete at this time. Plan of care reviewed at bedside with patient. Additional time taken to address any other needs or concerns. Vitals stable at this time. Pt denies pain or any other discomforts. Bed in low position, call light within reach, will continue to monitor.
[2019-08-13 10:01] LABS: CALCIUM 7.7 mg/dL (8.4-10.2); CREATININE, serum 0.27 (0.52-1.25); POTASSIUM 4.2 mmol/L (3.4-5.0)
--- NOTE | 2019-08-13 11:00 | NUR ---
KINGS hardy attended clinical rounds with the team. The patient is taking her zoloft. The patient ran out of insulin pens. The patient's mother will get some for the patient. The patient's diet has been uncontrolled. KINGS hardy collaborated with dietitian and gave the patient information regarding diabetic diet. The patient is not employed and disability application is being processed. After rounds, KINGS hardy met with the patient and the patient's mother, Laurence to complete initial intake. The patient lives in [place] with Laurence. The patient denies DME usage and is independent with ADLs. The patient's PCP is Dr. Alden Torres and patient receives medications from [facility]. The patient does not have advanced directives in the EMR. The patient plans to return home at discharge. commissioner of relocation services will continue to follow.
--- NOTE | 2019-08-13 12:00 | NUR ---
Pt resting comfortably in bed. Denies pain or any other discomforts. Vitals stable. Bed in low position, call light within reach, will continue to monitor.
--- NOTE | 2019-08-13 16:00 | NUR ---
Pt resting comfortably in bed. Denies pain or any other discomforts at this time. Vitals currently stable. Bed in low position, call light within reach, will continue to monitor.
--- NOTE | 2019-08-13 19:13 | NUR ---
Bedside report given to PHILL Osorio.
--- NOTE | 2019-08-13 22:41 | NUR ---
Patient resting in bed, awake, playing on her phone. Noted to have flat affect. Denies pain. IJ present to right neck, flushes with ease and blood return noted. Insulin administered at HS per sliding scale orders. Patient requested snack of jello, crackers, and diet soda. This was given and patient ate 100%. Up to the bathroom independently. Gait steady. Vitals stable. Will continue to monitor.
[2019-08-14] VITALS (659 sets, daily range): BP systolic 104–112; BP diastolic 64–81; PULSE 88–101; TEMP 97.5–99; O2SAT 70–100
--- NOTE | 2019-08-14 05:55 | NUR ---
Patient has rested well throughout the night. Complains of a sore throat and noted to have a cough. Non-productive. Lung sounds clear. Patient voiding well. Fluid intake adequate. Will continue to monitor patient.
[2019-08-14 06:04] LABS: BASO % 0.4 % (0.0-2.0); EOS % 0.4 % (0-4.0); GRAN # 1.2 (1.4-6.5); GRAN % 51.1 % (42.2-75.2); LYMPH # 0.9 (1.2-3.4); LYMPH % 37.2 % (20.0-51.0); MEAN CELL VOLUME 95 fl (80.0-100.0); MEAN CORPUSCULAR HGB CONC 34 g/dl (33.0-37.0); MEAN PLATELET VOLUME 9.3 fl (7.4-10.4); MONO # 0.2 (0.1-0.6); RED BLOOD COUNT 2.33 M/mm3 (4.10-5.30); REDCELL DISTRIBUTION WIDTH-CV 16.5 % (11.5-14.5)
[2019-08-14 06:10] LABS: HEMATOCRIT 22.1 % (37.0-47.0); HEMOGLOBIN 7.4 g/dl (12.5-16.0); MEAN CORPUSCULAR HEMOGLOBIN 32 pg (27.0-31.0)
[2019-08-14 06:12] LABS: PLATELET COUNT 48 K/mm3 (130-400)
[2019-08-14 06:17] LABS: ALBUMIN 2.9 gm/dL (3.5-5.0); CALCIUM 7.5 mg/dL (8.4-10.2); CREATININE, serum 0.21 (0.52-1.25); POTASSIUM 3.6 mmol/L (3.4-5.0); TOTAL PROTEIN 5.6 gm/dL (6.4-8.2)
--- NOTE | 2019-08-14 06:55 | NUR ---
Dr. Baldwin notified of critical platelet value at 48 at 0625. Ordered to add liver panel to this mornings labs and to consult hematology.
--- NOTE | 2019-08-14 07:00 | NUR ---
Bedside report received from PHILL Osorio
[2019-08-14 07:10] LABS: ALBUMIN 2.8 gm/dL (3.5-5.0); BILIRUBIN UNCONJUGATED 0.5 mg/dL (0.0-1.1); BILIRUBIN,DIRECT 0.3 mg/dL (0.0-0.4); BILIRUBIN,TOTAL 0.8 mg/dL (0.0-1.0); TOTAL PROTEIN 5.7 gm/dL (6.4-8.2)
[2019-08-14 09:16] LABS: PROTHROMBIN TIME 11.9 SECONDS (9.7-12.8)
--- NOTE | 2019-08-14 12:54 | NUR ---
Report called to PHILL Francois on Medical floor.
--- NOTE | 2019-08-14 14:29 | NUR ---
I assumed patient cares at this time from PHILL Francois
--- NOTE | 2019-08-14 15:29 | NUR ---
Icu nurse gave report on patient. I gave report to PHILL Solis on medical floor.
--- NOTE | 2019-08-14 20:10 | NUR ---
At time of assessment, patient is sitting up in bed watching TV. She has been walking independently around the unit at the beginning of the shift, requesting snacks. She is A&O, lung and heart sounds normal, no edema or pain. She has a bruise on her R upper arm from insulin sticks but says it doesn't hurt. Her affect is rather flat. Central line flushes well with a CDI dressing.
[2019-08-15 00:52] VITALS: PULSE 91
[2019-08-15 05:00] VITALS: BP 116/57; PULSE 80
--- NOTE | 2019-08-15 05:06 | NUR ---
Patient has slept throughout most of the night. Her blood sugar this evening was 381 and insulin was administered per jul. She does not complain of any pain. Central line flushes well and dressing is intact.
[2019-08-15 06:38] LABS: MEAN CELL VOLUME 97 fl (80.0-100.0); MEAN CORPUSCULAR HGB CONC 33 g/dl (33.0-37.0); MEAN PLATELET VOLUME 10.1 fl (7.4-10.4); PLATELET COUNT 78 K/mm3 (130-400); RED BLOOD COUNT 2.64 M/mm3 (4.10-5.30); REDCELL DISTRIBUTION WIDTH-CV 16.8 % (11.5-14.5)
[2019-08-15 06:46] LABS: HEMATOCRIT 25.7 % (37.0-47.0); HEMOGLOBIN 8.5 g/dl (12.5-16.0); MEAN CORPUSCULAR HEMOGLOBIN 32 pg (27.0-31.0)
[2019-08-15 06:52] LABS: ALBUMIN 3.2 gm/dL (3.5-5.0); BILIRUBIN,TOTAL 0.7 mg/dL (0.0-1.0); CALCIUM 8.1 mg/dL (8.4-10.2); CREATININE, serum 0.24 (0.52-1.25); POTASSIUM 3.8 mmol/L (3.4-5.0); TOTAL PROTEIN 6.1 gm/dL (6.4-8.2)
[2019-08-15 07:10] LABS: IRON,SERUM 39 ug/dL (35-150)
[2019-08-15 07:19] LABS: TOTAL IRON BINDING CAPACITY 324 ug/dL (265-497)
[2019-08-15 07:50] LABS: ANISOCYTOSIS 2+; BAND 7 % (0-10); EOSINOPHIL 5 % (0-4); LYMPHOCYTE 43 % (20.0-51.0); MICROCYTOSIS 1+; NEUTROPHILS 42 % (42.0-75.2); PLATELET ESTIMATE DECREASED (NORMAL)
[2019-08-15 07:54] VITALS: BP 109/66; PULSE 82; TEMP 98
[2019-08-15] MEDS ORDERED: LANTUS100 U/ML SQ (09:39)
[2019-08-15] MEDS ORDERED: NOVLOG SQ (09:39)
--- NOTE | 2019-08-15 10:09 | NUR ---
Pt assessment completed and charted. Medications administered per JUL. Pt has RIJ triple lumen, flushes w/o complications and good blood return noted. Pt on room air, breathing even and unlabored. Pt denies any pain, dizziness, SOB, N/V/D. pt received sliding scale per JUL. Pt to have potassium replaced, discussed w/ pharmacy, switched efferK to pill. No further needs expressed. Pt to discharge this afternoon.
[2019-08-15] MEDS ORDERED: LANTUS SOLOS100 U/ML SQ ×3 (10:43→13:27)
[2019-08-15] MEDS ORDERED: HUMALOG PEN100 U/ML SQ (10:43)
[2019-08-15] MEDS ORDERED: TRUE COMFORT P1 EAC1 MC (10:44)
--- NOTE | 2019-08-15 11:48 | NUR ---
First visit from the forestry farm laborer. No needs right now.
[2019-08-15 12:44] VITALS: BP 111/72; PULSE 93; TEMP 98
--- NOTE | 2019-08-15 14:08 | NUR ---
The patient is to discharge back home with her mother today, 08/14. The patient was secured an appointment on 09/01 at 1045 at [facility] for primary care. SW contacted the patient's preferred pharmacy, [facility], to bar meds. The pharmacist reports that the patient's meds are covered by insurance. SW updated the patient of this. No additional needs at this time.
--- NOTE | 2019-08-15 15:19 | NUR ---
Pt discharge instructions discussed and reviewed with pt who verbalized understanding and all questions answered. No further needs. RIJ IV dc'd w/o complications.
--- NOTE | 2019-08-15 16:20 | NUR ---
Pt escorted out by AYSE Gautam. No issues.
[2019-08-16 04:16] LABS: FOLATE (FOLIC ACID) 11.4 ng/mL (>=4.0)
== END 2019-08-15 16:20 | disposition home or self-care (01) | DRG 638 ==
LOC: COL.ER 07:50 → ICU 11:37 → MEDICAL 08-14 13:50
PROVIDERS: Internal Medicine; Internal Medicine Critical Care Medicine; Nurse Practitioner Family; Physician Assistant; ADMIT Student in an Organized Health Care Education/Training Program
PROC: 02HV33Z Insertion of Infusion Device into Superior Vena Cava, Percutaneous Approach (ICD-10-PCS; principal; 2019-08-11)
DX: E10.10 Type 1 diabetes mellitus with ketoacidosis without coma (principal); D61.818 Other pancytopenia; K75.4 Autoimmune hepatitis; F32.9 Major depressive disorder, single episode, unspecified; F17.210 Nicotine dependence, cigarettes, uncomplicated; D72.829 Elevated white blood cell count, unspecified; E83.42 Hypomagnesemia; E87.6 Hypokalemia; D47.3 Essential (hemorrhagic) thrombocythemia; D64.9 Anemia, unspecified; Z88.0 Allergy status to penicillin; Z88.3 Allergy status to other anti-infective agents
CPT/HCPCS: 99223-AI; 99232-AI; 99233-AI; 99239; J1650; J1815; J2405; J3475; J3480; J7030; J7070; J7120

== ENCOUNTER 2020-09-20 05:38 | Observation (INO) | payer MEDICARE, MEDICAID ==
[~2020-09-20] VITALS: Ht 170.2 cm; Wt 69.5 kg
[~2020-09-20 05:38] MED LIST changes: +HUMALOG PEN100 U/ML SQ; +LANTUS SOLOS100 U/ML SQ; +LANTUS100 U/ML SQ; +TRUE COMFORT P1 EAC1 MC
[2020-09-20 06:27] LABS: EOS % 0.8 % (0-4.0); GRAN # 2.3 (1.4-6.5); GRAN % 64.7 % (42.2-75.2); HEMOGLOBIN 11.6 g/dl (12.5-16.0); LYMPH # 0.6 (1.2-3.4); LYMPH % 16.4 % (20.0-51.0); MEAN CELL VOLUME 101 fl (80.0-100.0); MEAN CORPUSCULAR HEMOGLOBIN 34 pg (27.0-31.0); MEAN CORPUSCULAR HGB CONC 34 g/dl (33.0-37.0); MEAN PLATELET VOLUME 10.7 fl (7.4-10.4); MONO # 0.6 (0.1-0.6); MONO % 17.8 % (1.7-9.3); PLATELET COUNT 89 K/mm3 (130-400); REDCELL DISTRIBUTION WIDTH-CV 13.8 % (11.5-14.5)
[2020-09-20 06:28] LABS: HEMATOCRIT 34.2 % (37.0-47.0)
[2020-09-20 06:39] LABS: ACETONE,SERUM NEGATIVE
[2020-09-20 06:46] LABS: COLLECTION METHOD CLEAN CATCH
[2020-09-20 06:55] LABS: PH 6 (5-8); URINE APPEARANCE Hazy; URINE BACTERIA None Seen /hpf; URINE BILIRUBIN Negative (NEGATIVE); URINE BLOOD Negative (NEGATIVE); URINE COLOR Yellow; URINE GLUCOSE 3+ (NEGATIVE); URINE KETONE 1+ (NEGATIVE); URINE LEUKOCYTE ESTERASE Negative (NEGATIVE); URINE NITRATE Negative (NEGATIVE); URINE PROTEIN(semi-quant) Negative (NEGATIVE); URINE RBC 0-2 /hpf
[2020-09-20 07:07] LABS: ALANINE AMINOTRANSFERASE 65 U/L (4-34); ALBUMIN 3.8 gm/dL (3.5-5.0); ALKALINE PHOSPHATASE 211 U/L (50-136); ANION GAP 10 mmol/L (7-16); AST,SGOT 57 U/L (15-37); BILIRUBIN,TOTAL 1.2 mg/dL (0.0-1.0); BLOOD UREA NITROGEN 10 mg/dL (7-17); C-REACTIVE PROTEIN 1.7 mg/dL (0.0-0.9); CALCIUM 8.4 mg/dL (8.4-10.2); CARBON DIOXIDE 22 mmol/L (22-30); CHLORIDE 102 mmol/L (98-107); CREATININE, serum 0.29 (0.52-1.25); GLUCOSE 364 mg/dL (74-106); LIPASE 103 U/L (23-300); POTASSIUM 3.3 mmol/L (3.4-5.0); SODIUM 134 mmol/L (137-145); TOTAL PROTEIN 7.3 gm/dL (6.4-8.2)
[2020-09-20] MEDS ORDERED: LEVEMIR FLEX100 U/ML SQ (11:50)
[2020-09-20 12:01] VITALS: BP 114/76; PULSE 86; TEMP 97.7
[2020-09-20 16:09] VITALS: BP 114/80; PULSE 85; TEMP 98
[2020-09-20 16:52] LABS: PERITONEAL -POLYMORPHONUCLEAR 2.7 % (0-25); PERITONEAL FLUID RBC 0 /mm3 (0-0)
--- NOTE | 2020-09-20 16:56 | NUR ---
Pt resting in bed after arriving to [facility] this afternoon. Pt has been upset several times over shift regarding things such as visitor policy not allowing 3 year old daughter to visit, upset about having to sign consents for procedures. Paracentesis removed approx 2300 mls, abd is softer and bandaid is CDI. Resting in bed, denies needs, ordered food, will continue to montior and give bedside shift report to nightshift nurse who will resuem care.
[2020-09-20 17:46] VITALS: BP 107/72; PULSE 90; TEMP 98.1
[2020-09-20 19:00] VITALS: BP 105/69; PULSE 80; TEMP 98.1
--- NOTE | 2020-09-20 19:00 | NUR ---
PATIENT EATING DINNER LATE - REG NOVALOG 15U SUB Q WITH EACH MEAL - ALSO SLIDING SCALE RE NOVALOG 8 UNITS GIVEN, BS 335, FOR TOTAL OF 23UNITS LEFT ARM.
[2020-09-20 23:25] VITALS: BP 94/63; PULSE 87; TEMP 98.1
[2020-09-21 03:42] VITALS: BP 107/52; PULSE 73; TEMP 97.8
--- NOTE | 2020-09-21 05:56 | NUR ---
Patient slept well throughout the night. Potassium replaced per protocol. No acute distress noted. Call light within reach. Will give report to day shift nurse.
[2020-09-21 07:15] LABS: BASO % 0.4 % (0.0-2.0); EOS % 1.8 % (0-4.0); GRAN # 1.3 (1.4-6.5); HEMOGLOBIN 10.9 g/dl (12.5-16.0); LYMPH # 0.6 (1.2-3.4); LYMPH % 24.7 % (20.0-51.0); MEAN CELL VOLUME 104 fl (80.0-100.0); MEAN CORPUSCULAR HEMOGLOBIN 34 pg (27.0-31.0); MEAN CORPUSCULAR HGB CONC 32 g/dl (33.0-37.0); MEAN PLATELET VOLUME 10.9 fl (7.4-10.4); MONO # 0.4 (0.1-0.6); MONO % 16.1 % (1.7-9.3); PLATELET COUNT 79 K/mm3 (130-400); RED BLOOD COUNT 3.23 M/mm3 (4.10-5.30); REDCELL DISTRIBUTION WIDTH-CV 13.9 % (11.5-14.5)
[2020-09-21 07:22] LABS: HEMATOCRIT 33.7 % (37.0-47.0)
[2020-09-21 07:27] LABS: ALBUMIN 3.2 gm/dL (3.5-5.0); BILIRUBIN,TOTAL 0.8 mg/dL (0.0-1.0); CALCIUM 8.1 mg/dL (8.4-10.2); CREATININE, serum 0.21 (0.52-1.25); POTASSIUM 4.3 mmol/L (3.4-5.0); TOTAL PROTEIN 6.3 gm/dL (6.4-8.2)
[2020-09-21 07:44] VITALS: BP 101/72; PULSE 86; TEMP 97.9
--- NOTE | 2020-09-21 09:00 | NUR ---
Patient arrived back to floor from endoscopy. Post op checks initiated, patient is alert and oriented, c/o pain in epigastric region and requests PRN pain medication, administered per order. Patient denies further needs, call light within reach.
[2020-09-21 09:06] LABS: INR 1.1 (0.8-3.0)
[2020-09-21] MEDS ORDERED: ALDACTONE50 MG PO (11:22)
[2020-09-21] MEDS ORDERED: LASIX 20MG TABL20 MG PO (11:23)
[2020-09-21] MEDS ORDERED: IMURAN 50MG TAB50 MG PO (11:23)
[2020-09-21] MEDS ORDERED: HUMALOG PEN100 U/ML SQ (11:47)
[2020-09-21 11:51] VITALS: BP 104/75; PULSE 84; TEMP 97.7
--- NOTE | 2020-09-21 16:55 | NUR ---
Discharge teaching completed. Discussed discharge diet, medications, follow up appointments, and outpatient procedures. Reinterated importance of follow up care and taking medications as ordered; patient verbalized understanding. INT removed, catheter intact, hemostasis achieved. Patient confirmed all personal belongings are gathered and was escorted to ED entrance, where she entered a private vehicle.
== END 2020-09-21 16:55 | disposition home or self-care (01) ==
LOC: COL.ER 05:38 → MEDICAL 09:21
PROVIDERS: Family Medicine; Internal Medicine Gastroenterology; Physician Assistant; ADMIT Internal Medicine
DX: K31.7 Polyp of stomach and duodenum (principal); K74.60 Unspecified cirrhosis of liver; I85.10 Secondary esophageal varices without bleeding; D61.818 Other pancytopenia; F32.9 Major depressive disorder, single episode, unspecified; E87.6 Hypokalemia; E10.10 Type 1 diabetes mellitus with ketoacidosis without coma; F17.210 Nicotine dependence, cigarettes, uncomplicated; Z88.0 Allergy status to penicillin; Z88.1 Allergy status to other antibiotic agents; Z88.8 Allergy status to other drugs, medicaments and biological substances
CPT/HCPCS: G0378; J0696; J1815; J2270; J2405; J2704; J3480; J7120; J7500; Q9967

== ENCOUNTER 2020-10-19 07:59 | Day surgery (SDC) | payer MEDICARE, MEDICAID ==
[~2020-10-19] VITALS: Ht 170.2 cm; Wt 60.1 kg
[~2020-10-19 07:59] MED LIST changes: +ALDACTONE50 MG PO; +LASIX 20MG TABL20 MG PO
[2020-10-19 08:35] VITALS: BP 120/86; PULSE 98; TEMP 97.7
--- NOTE | 2020-10-19 08:49 | NUR ---
0847 Blood sugar test from pt resulted at 432. This value communicated to KAI Negrete, and Dr. Ford. The procedure is cancelled by Dr. Ford, and he states that the pt needs to consult with her primary care provider to get her blood sugar levels managed before having the procedure. 0849 This RN visits with pt and pt's mom and informs them of the message from Dr. Ford. This RN answers any questions they have to their satisfaction including if they would like to visit with Dr. Ford before the pt is discharged from the hospital. Both the pt and her mom decline the need for a visit with Dr. Ford. When this RN asks, the pt states she does have a primary care provider. This RN aims to encourage the pt that there are various successful ways to help manage blood sugar, and when she gets it managed, we'll be very willing to assist with the procedure. The pt appears to take the news with difficulty and very little communication, which has been the situation as we've been performing all regular preop processes.
--- NOTE | 2020-10-19 09:13 | NUR ---
0913 Pt escorted out of hospital with this RN assisting and pt's mom accompanying to vehicle driven by Mom.
== END 2020-10-19 08:55 | disposition home or self-care (01) ==
LOC: SDCO 07:59
DX: K74.69 Other cirrhosis of liver (principal); Z53.9 Procedure and treatment not carried out, unspecified reason
CPT/HCPCS: J7030

== ENCOUNTER → 2020-11-09 | Outpatient (CLI) | payer MEDICARE, MEDICAID ==
[~2020-11-09] MED LIST changes: +BACTRIM DS 8001 TAB PO
[2020-11-09 17:44] LABS: ALBUMIN 3.6 gm/dL (3.5-5.0); BILIRUBIN,TOTAL 0.6 mg/dL (0.0-1.0); CALCIUM 8.8 mg/dL (8.4-10.2); CREATININE, serum 0.36 (0.52-1.25); TOTAL PROTEIN 6.8 gm/dL (6.4-8.2)
== END ==
LOC: COL.LAB 16:48
PROVIDERS: Internal Medicine
DX: K75.4 Autoimmune hepatitis (principal)

== ENCOUNTER 2020-12-03 23:23 | Emergency (ER) | payer MEDICARE, MEDICAID ==
[~2020-12-03] VITALS: Ht 170.2 cm; Wt 59.1 kg
[~2020-12-03 23:23] MED LIST changes: -BACTRIM DS 8001 TAB PO
[2020-12-03 23:28] VITALS: TEMP 98
[2020-12-03] MEDS ORDERED: BACTRIM DS 8001 TAB PO (23:52)
[2020-12-04 00:20] VITALS: BP 122/70; PULSE 71
== END 2020-12-04 00:47 | disposition home or self-care (01) ==
LOC: COL.ER 23:23
DX: L03.012 Cellulitis of left finger (principal); F17.200 Nicotine dependence, unspecified, uncomplicated

== ENCOUNTER → 2021-08-02 | Outpatient (CLI) | payer MEDICARE, MEDICAID ==
[~2021-08-02] MED LIST changes: +BACTRIM DS 8001 TAB PO; +NATURAL IRON65 MG PO
[2021-08-02 11:11] LABS: BASO % 0.3 % (0.0-2.0); EOS % 1.1 % (0.0-4.0); GRAN # 2.6 K/mm3 (1.4-6.5); GRAN % 74.4 % (42.2-75.2); HEMATOCRIT 37.7 % (37.0-47.0); HEMOGLOBIN 13.3 g/dl (12.5-16.0); LYMPH # 0.5 K/mm3 (1.2-3.4); LYMPH % 13.4 % (20.0-51.0); MEAN CELL VOLUME 87 fl (80.0-100.0); MEAN CORPUSCULAR HEMOGLOBIN 31 pg (27-31); MEAN CORPUSCULAR HGB CONC 35 g/dl (33.0-37.0); MEAN PLATELET VOLUME 10.3 fl (7.4-10.4); MONO # 0.4 K/mm3 (0.1-0.6); MONO % 10.5 % (1.7-9.3); PLATELET COUNT 81 K/mm3 (130-400); RED BLOOD COUNT 4.36 M/mm3 (4.10-5.30); REDCELL DISTRIBUTION WIDTH-CV 16.6 % (11.5-14.5)
[2021-08-02 11:26] LABS: ALBUMIN 3.5 gm/dL (3.5-5.0); BILIRUBIN,TOTAL 1.4 mg/dL (0.2-1.2); CALCIUM 8.4 mg/dL (8.4-10.2); CREATININE, serum 0.72 mg/dL (0.57-1.11); POTASSIUM 4.2 mmol/L (3.5-4.5); TOTAL PROTEIN 7.2 gm/dL (6.2-8.1)
== END ==
LOC: COL.RAD 10:17
DX: K75.4 Autoimmune hepatitis (principal); K76.89 Other specified diseases of liver; K82.8 Other specified diseases of gallbladder; K80.80 Other cholelithiasis without obstruction; R16.2 Hepatomegaly with splenomegaly, not elsewhere classified

== ENCOUNTER 2021-08-09 07:35 | Inpatient (IN) | payer MEDICARE, MEDICAID ==
[~2021-08-09] VITALS: Ht 170.2 cm; Wt 67.7 kg
[2021-08-09] VITALS (325 sets, daily range): BP systolic 91–110; BP diastolic 61–74; PULSE 76–106; TEMP 97.2–98.6; O2SAT 82–100
[2021-08-09 08:06] LABS: BASO % 0.4 % (0.0-2.0); EOS # 0.1 K/mm3 (0.0-0.7); EOS % 1.8 % (0.0-4.0); GRAN # 3.3 K/mm3 (1.4-6.5); GRAN % 65.6 % (42.2-75.2); HEMOGLOBIN 11.4 g/dl (12.5-16.0); LYMPH # 0.9 K/mm3 (1.2-3.4); LYMPH % 18.1 % (20.0-51.0); MEAN CELL VOLUME 85 fl (80.0-100.0); MEAN CORPUSCULAR HEMOGLOBIN 31 pg (27-31); MEAN CORPUSCULAR HGB CONC 37 g/dl (33.0-37.0); MEAN PLATELET VOLUME 10.1 fl (7.4-10.4); MONO # 0.7 K/mm3 (0.1-0.6); MONO % 13.7 % (1.7-9.3); PLATELET COUNT 127 K/mm3 (130-400); RED BLOOD COUNT 3.68 M/mm3 (4.10-5.30); REDCELL DISTRIBUTION WIDTH-CV 15.9 % (11.5-14.5)
[2021-08-09 08:12] LABS: HEMATOCRIT 31.2 % (37.0-47.0)
[2021-08-09 08:13] LABS: INR 1.2 (0.8-3.0); PROTHROMBIN TIME 13.5 SECONDS (9.7-12.8)
[2021-08-09 08:15] LABS: ALBUMIN 3.1 gm/dL (3.5-5.0); BILIRUBIN,TOTAL 1.5 mg/dL (0.2-1.2); CALCIUM 7.9 mg/dL (8.4-10.2); CREATININE, serum 0.69 mg/dL (0.57-1.11); PARTIAL THROMBOPLASTIN TIME 26.1 SECONDS (26.0-37.0); POTASSIUM 3.5 mmol/L (3.5-4.5)
--- NOTE | 2021-08-09 12:00 | NUR ---
PT ARRIVES TO ICU ROOM 2 FROM SURGERY. HAD 6 BANDS PLACED DURING SURGERY. PT IS ALERT AND ORIENTED. DENIES PAIN. OCTREOTIDE INFUSING AT 75.1 ML/HR. 18G PIV FOR RIGHT FOREARM. 20G PIV TO LEFT FA. PT RECEIVED 1 UNIT OF BLOOD DURING DURING. ADDITIONAL UNIT HAS BEEN ORDERED AND IS READY. PT ORIENTED TO ROOM AND POLICIES. NPO AT THIS TIME.
--- NOTE | 2021-08-09 19:20 | NUR ---
RECEIVED REPORT FROM PHILL SHEIKH. PT SLEEPING IN BED ON RA. VSS. CALL LIGHT WITHIN REACH.
[2021-08-09 21:55] LABS: HEMOGLOBIN 11.5 g/dl (12.5-16.0)
[2021-08-09 21:59] LABS: HEMATOCRIT 32.9 % (37.0-47.0)
[2021-08-10] VITALS (58 sets, daily range): BP systolic 97–128; BP diastolic 67–92; PULSE 83–106; TEMP 97.5–98.1; O2SAT 94–99
[2021-08-10 06:18] LABS: BASO % 0.2 % (0.0-2.0); EOS # 0.1 K/mm3 (0.0-0.7); EOS % 1.4 % (0.0-4.0); GRAN # 3.5 K/mm3 (1.4-6.5); GRAN % 70.2 % (42.2-75.2); LYMPH # 0.8 K/mm3 (1.2-3.4); LYMPH % 16.2 % (20.0-51.0); MEAN CELL VOLUME 84 fl (80.0-100.0); MEAN CORPUSCULAR HGB CONC 36 g/dl (33.0-37.0); MEAN PLATELET VOLUME 9.9 fl (7.4-10.4); MONO # 0.6 K/mm3 (0.1-0.6); MONO % 11.8 % (1.7-9.3); PLATELET COUNT 77 K/mm3 (130-400); RED BLOOD COUNT 3.09 M/mm3 (4.10-5.30)
[2021-08-10 06:39] LABS: CALCIUM 6.5 mg/dL (8.4-10.2); CREATININE, serum 0.42 mg/dL (0.57-1.11); MAGNESIUM 1.3 mg/dL (1.6-2.6)
[2021-08-10 06:43] LABS: POTASSIUM 2.8 mmol/L (3.5-4.5)
[2021-08-10 07:23] LABS: HEMATOCRIT 25.9 % (37.0-47.0); HEMOGLOBIN 9.4 g/dl (12.5-16.0); MEAN CORPUSCULAR HEMOGLOBIN 30 pg (27-31)
--- NOTE | 2021-08-10 07:52 | NUR ---
BEDSIDE REPORT RECEIVED FROM PHILL MCKEON. 20G PIV TO LEFT WRIST. 18G PIV TO RIGHT FOREARM. PT APPEARS TO BE RESTING COMFORTABLY AT THIS TIME. NO S/S DISCOMFORT NOTED. CONTINUE NPO ORDER.
--- NOTE | 2021-08-10 10:06 | NUR ---
SW met with patient to complete intake. Patient currently lives at home alone in [place]. States that she gets primary care at [facility] in and utilizes [facility] in [place] for medications. Patient is independent with her ADL's and does not utilize any DME to assist with mobility and has no oxygen needs at home. Patient has a 5 year old child who is being cared for by her mother while she is in the hospital. Patient's established NOK is her mother Laurence ([phone]). Prior to entering room, patient heard crying and upset with someone on the phone. Unknown of who she was talking to as the patient wasn't willing to say .During intake, patient remains tearful stating that she was upset because the doctor "told me nothing".
--- NOTE | 2021-08-10 10:43 | NUR ---
First visit from the fur finisher seamstress. No needs right now.
--- NOTE | 2021-08-10 12:24 | NUR ---
10 AUGUST 2021, 1203: Template Worker, Nca Certified Concierge RN, called Transfer Center and was forwarded to a coordinator with the Triage Line; RN inquired about pts transfer status; per coordinator per note from Internal Audit Manager, pt would not need TIPS procedure if previously banded, would not transfer pt for a possible TIPS, to continue current care of tranfusing if Hbg <7, administering ocetreotide and protonix, if pt does rebleed to call back transfer center to reinitiate pt transfer 1218: Updated ICU colorist formulator [id number] 1221: Updated pts provider, Dr. Baldwin, via phone
[2021-08-10 13:09] LABS: HEMATOCRIT 28.2 % (37.0-47.0)
--- NOTE | 2021-08-10 16:45 | NUR ---
REPORT GIVEN TO PHILL REINOSO. PT MOVING TO MEDICAL FLOOR ROOM 319. ALL BELONGINGS SENT WITH PT. PT'S FAMILY WITH PT AT TIME OF TRANSFER.
--- NOTE | 2021-08-10 17:29 | NUR ---
PT ADMITTED TO UNIT. MED REC UPDATED. PT COMPLAINING OF NAUSEA, AND HAD SOME EMESIS. DR. FOFANA CONTACTED AND THIS RN INSTRUCTED TO GIVE A SECOND DOSE OF ZOFRAN AND ORDER H&H FOR 1999. EMESIS IS DARK YELLOW IN COLOR. WILL CONTINUE TO MONITOR.
[2021-08-10 20:27] LABS: HEMOGLOBIN 11.1 g/dl (12.5-16.0)
[2021-08-10 20:39] LABS: CALCIUM 7.2 mg/dL (8.4-10.2); CREATININE, serum 0.46 mg/dL (0.57-1.11); MAGNESIUM 1.9 mg/dL (1.6-2.6); PHOSPHOROUS 2.5 mg/dL (2.3-4.7); POTASSIUM 3.4 mmol/L (3.5-4.5)
[2021-08-10 23:19] LABS: BASO % 0.3 % (0.0-2.0); EOS % 0.1 % (0.0-4.0); GRAN # 14.2 K/mm3 (1.4-6.5); HEMOGLOBIN 10.7 g/dl (12.5-16.0); LYMPH # 0.4 K/mm3 (1.2-3.4); LYMPH % 2.5 % (20.0-51.0); MEAN CELL VOLUME 85 fl (80.0-100.0); MEAN CORPUSCULAR HEMOGLOBIN 30 pg (27-31); MEAN CORPUSCULAR HGB CONC 35 g/dl (33.0-37.0); MEAN PLATELET VOLUME 9.5 fl (7.4-10.4); MONO # 1.1 K/mm3 (0.1-0.6); MONO % 6.6 % (1.7-9.3); PLATELET COUNT 115 K/mm3 (130-400); RED BLOOD COUNT 3.54 M/mm3 (4.10-5.30); REDCELL DISTRIBUTION WIDTH-CV 18.3 % (11.5-14.5)
--- NOTE | 2021-08-10 23:19 | NUR ---
At approximately 2215, alicia used call button, but unable to understand what patient needed. This nurse went to room. Patient was sitting up on side of bed, moaning in pain and having emesis. Emesis was smiley colored. No pain medication on JUL, and too soon to give Zofran. Patient's mom called and voiced concerns about a previous hospitalization where she had to have a "tube placed to drain a large amount of infection" and "IV ABX" for 30 days. This nurse called MICAELA Bansal and updated on patient condition, as well as mom's concerns. New orders obtained. Given Phenergan and Dilaudid per orders. Primary nurse and PCT taking patient down for CT at this time. This nurse called and updated mom and she is requesting a call with CT results when available.
[2021-08-10 23:20] LABS: HEMATOCRIT 30.2 % (37.0-47.0)
[2021-08-10 23:31] LABS: ALBUMIN 2.6 gm/dL (3.5-5.0); BILIRUBIN,DIRECT 0.8 mg/dL (0.0-0.5); BILIRUBIN,TOTAL 1.5 mg/dL (0.2-1.2); TOTAL PROTEIN 5.3 gm/dL (6.2-8.1)
--- NOTE | 2021-08-10 23:51 | NUR ---
Received report from day shift. Patient here for DKA and esophageal varices. Patient alert and oriented x3. Assessment performed. Lungs CTA, bowel sounds present, abdomen distended. Patient states pain is 8/10 in abdomen and lower back. Patient has had several bouts of emesis. Patient given meds for pain and nausea and taken for a CT scan. Patient reports pain is not relieved by pain medications. Will continue to monitor.
[2021-08-11 00:55] VITALS: BP 123/83; PULSE 72; TEMP 98.2
[2021-08-11 01:12] LABS: COLLECTION METHOD CLEAN CATCH
[2021-08-11 01:32] LABS: MUCOUS Present (NOT PRESENT); PH 6 (5-8); URINE APPEARANCE Cloudy (CLEAR/HAZY); URINE BACTERIA None Seen /hpf (NONE SEEN); URINE BILIRUBIN Negative (NEGATIVE); URINE BLOOD Negative (NEGATIVE); URINE COLOR Yellow (YELLOW); URINE GLUCOSE 2+ (NEGATIVE); URINE KETONE Trace (NEGATIVE); URINE LEUKOCYTE ESTERASE 3+ (NEGATIVE); URINE NITRATE Positive (NEGATIVE); URINE PROTEIN(semi-quant) Negative (NEGATIVE)
[2021-08-11 04:04] VITALS: BP 120/84; PULSE 138; TEMP 100
[2021-08-11 07:19] VITALS: BP 108/77; PULSE 130; TEMP 99.1
[2021-08-11 07:23] LABS: POTASSIUM 3.5 mmol/L (3.5-4.5)
[2021-08-11 08:19] LABS: HEMOGLOBIN 11.4 g/dl (12.5-16.0); MEAN CELL VOLUME 86 fl (80.0-100.0); MEAN CORPUSCULAR HEMOGLOBIN 30 pg (27-31); MEAN CORPUSCULAR HGB CONC 35 g/dl (33.0-37.0); MEAN PLATELET VOLUME 10.2 fl (7.4-10.4); PLATELET COUNT 152 K/mm3 (130-400); RED BLOOD COUNT 3.78 M/mm3 (4.10-5.30); REDCELL DISTRIBUTION WIDTH-CV 18.6 % (11.5-14.5)
[2021-08-11 08:28] LABS: HEMATOCRIT 32.5 % (37.0-47.0)
[2021-08-11 08:32] LABS: CALCIUM 6.9 mg/dL (8.4-10.2); CREATININE, serum 0.48 mg/dL (0.57-1.11)
[2021-08-11 08:52] LABS: ANISOCYTOSIS 1+; BAND 29 % (0-10); LYMPHOCYTE 1 % (20.0-51.0); NEUTROPHILS 64 % (42.0-75.2); PLATELET ESTIMATE NORMAL (NORMAL); POLYCHROMASIA 1+
--- NOTE | 2021-08-11 09:20 | NUR ---
PT RESTING IN BED. MORNING MEDICATIONS GIVEN. SHIFT ASSESSMENT COMPLETED. PT DROWSY AND COMPLAINING OF SOME NAUSEA AND 10/10 ABDOMINAL PAIN. SANDOSTATIN INFUSING. PICC LINE FLUSHES AND HAS GOOD BLOOD RETURN. WILL CONTINUE TO MONITOR.
[2021-08-11] MEDS ORDERED: IMURAN 50MG TAB50 MG PO (11:23)
[2021-08-11 12:12] VITALS: BP 110/82; PULSE 121; TEMP 98.5
[2021-08-11 15:53] VITALS: BP 108/69; PULSE 121; TEMP 98.6
[2021-08-11 19:58] LABS: HEMATOCRIT 26.6 % (37.0-47.0); HEMOGLOBIN 9.4 g/dl (12.5-16.0)
[2021-08-11 20:08] VITALS: BP 106/73; PULSE 114; TEMP 99.7
[2021-08-12] VITALS (8 sets, daily range): BP systolic 92–107; BP diastolic 51–71; PULSE 100–111; TEMP 98.2–99.4
[2021-08-12 01:46] LABS: HEMATOCRIT 26.3 % (37.0-47.0)
--- NOTE | 2021-08-12 07:46 | NUR ---
pt slept majority of the night. pt mood remained flat. pt denies n.v.d. at this time. pt reports no hematesis overnight. n/s continues to infuse at 500cc/hr to jordyn picc along with abx. pt bs remain elevated, insulin administered as ordered. pt asymotomatic this night. All needs met this shift. call light within reach.
[2021-08-12 08:50] LABS: BASO % 0.3 % (0.0-2.0); EOS # 0.1 K/mm3 (0.0-0.7); EOS % 1.2 % (0.0-4.0); GRAN % 80.7 % (42.2-75.2); LYMPH # 0.5 K/mm3 (1.2-3.4); LYMPH % 6.7 % (20.0-51.0); MEAN CELL VOLUME 87 fl (80.0-100.0); MEAN CORPUSCULAR HGB CONC 35 g/dl (33.0-37.0); MONO # 0.7 K/mm3 (0.1-0.6); MONO % 9.9 % (1.7-9.3); PLATELET COUNT 79 K/mm3 (130-400); RED BLOOD COUNT 2.86 M/mm3 (4.10-5.30); REDCELL DISTRIBUTION WIDTH-CV 18.5 % (11.5-14.5)
[2021-08-12 08:51] LABS: HEMATOCRIT 24.8 % (37.0-47.0); HEMOGLOBIN 8.6 g/dl (12.5-16.0); MEAN CORPUSCULAR HEMOGLOBIN 30 pg (27-31)
--- NOTE | 2021-08-12 08:59 | NUR ---
Scheduled medications given. Shift assessment performed. Patient denies any pain, discomfort, SOA, diarrha, hemoptysis, or further needs at this time. Fluids running as ordered. Call light in reach. VSS. Patient A&O.
[2021-08-12 09:02] LABS: CALCIUM 7.2 mg/dL (8.4-10.2); CREATININE, serum 0.47 mg/dL (0.57-1.11); POTASSIUM 3.6 mmol/L (3.5-4.5)
--- NOTE | 2021-08-12 13:57 | NUR ---
Beam Worker spoke with RN who advised patient may transfer to [facility].
[2021-08-12 14:43] LABS: BASO % 0.2 % (0.0-2.0); EOS % 0.3 % (0.0-4.0); GRAN # 7.9 K/mm3 (1.4-6.5); GRAN % 84.3 % (42.2-75.2); LYMPH # 0.6 K/mm3 (1.2-3.4); LYMPH % 6.2 % (20.0-51.0); MEAN CELL VOLUME 87 fl (80.0-100.0); MEAN CORPUSCULAR HGB CONC 35 g/dl (33.0-37.0); MEAN PLATELET VOLUME 10.1 fl (7.4-10.4); MONO # 0.8 K/mm3 (0.1-0.6); PLATELET COUNT 97 K/mm3 (130-400); RED BLOOD COUNT 3.12 M/mm3 (4.10-5.30); REDCELL DISTRIBUTION WIDTH-CV 18.6 % (11.5-14.5)
[2021-08-12 14:44] LABS: HEMATOCRIT 27.2 % (37.0-47.0); HEMOGLOBIN 9.5 g/dl (12.5-16.0); MEAN CORPUSCULAR HEMOGLOBIN 30 pg (27-31)
--- NOTE | 2021-08-12 19:16 | NUR ---
Patient has had an ok day. Scheduled medications given. Shift assessment performed. Patient states that her pain level is manageable at this time. BP's have been soft, but stable. HGB's being trended. ABX and fluids running as ordered. K+ replaced. Patient denies any diarrhea, hemoptysis, or emesis this shift. Denies any further pain, discomfort, SOA, or further needs at this time. Call light in reach. Patient A&O.
[2021-08-12 22:06] LABS: HEMOGLOBIN 7.7 g/dl (12.5-16.0)
[2021-08-13 00:20] VITALS: BP 94/56; PULSE 98; TEMP 98.7
[2021-08-13 02:06] LABS: HEMATOCRIT 22.6 % (37.0-47.0); HEMOGLOBIN 7.8 g/dl (12.5-16.0)
--- NOTE | 2021-08-13 02:46 | NUR ---
Received report from day shift. Patient here for DKA and esophageal varices. Patient A&Ox4. Assessment performed. VSS with some soft pressures. H&H ordered for trending. Hgb decreased from 9.5 to 7.7. Hospitalist was notified. Nurse was told to monitor for signs of bleeding. Patient denies any headache, chest pain, or abdominal pain. PM meds administered. Will continue to monitor.
[2021-08-13 04:07] VITALS: BP 96/56; PULSE 91; TEMP 98.1
[2021-08-13 06:18] LABS: BASO % 0.2 % (0.0-2.0); EOS # 0.1 K/mm3 (0.0-0.7); EOS % 1.8 % (0.0-4.0); GRAN # 5.1 K/mm3 (1.4-6.5); GRAN % 76.7 % (42.2-75.2); LYMPH # 0.7 K/mm3 (1.2-3.4); MEAN CELL VOLUME 90 fl (80.0-100.0); MEAN CORPUSCULAR HGB CONC 34 g/dl (33.0-37.0); MEAN PLATELET VOLUME 10.3 fl (7.4-10.4); MONO # 0.6 K/mm3 (0.1-0.6); MONO % 9.5 % (1.7-9.3); PLATELET COUNT 113 K/mm3 (130-400); RED BLOOD COUNT 2.94 M/mm3 (4.10-5.30); REDCELL DISTRIBUTION WIDTH-CV 18.5 % (11.5-14.5)
[2021-08-13 06:23] LABS: HEMATOCRIT 26.5 % (37.0-47.0); MEAN CORPUSCULAR HEMOGLOBIN 31 pg (27-31)
[2021-08-13 06:32] LABS: BILIRUBIN,TOTAL 1.5 mg/dL (0.2-1.2); CALCIUM 7.1 mg/dL (8.4-10.2); CREATININE, serum 0.5 mg/dL (0.57-1.11); POTASSIUM 3.8 mmol/L (3.5-4.5)
[2021-08-13 08:00] VITALS: BP 99/64; PULSE 97; TEMP 98.8
--- NOTE | 2021-08-13 09:10 | NUR ---
Shift assessment complete. Pt resting in bed. A&Ox4. Vitals stable though BPs soft 90s/60s. Pt denies pain or nausea this morning, would like to eat today. Octreotide running to right upper arm PICC per orders. Trending Hgbs, stable at 9 at this time. Blood glucose 266 this morning, insulin given per orders. Pt denies needs at this time. Call light in reach.
[2021-08-13 11:28] LABS: HEMATOCRIT 27.6 % (37.0-47.0); HEMOGLOBIN 9.4 g/dl (12.5-16.0)
[2021-08-13 12:00] VITALS: BP 98/68; PULSE 93; TEMP 9.4
[2021-08-13 16:00] VITALS: BP 104/72; PULSE 95; TEMP 98.2
[2021-08-13 17:31] LABS: HEMATOCRIT 28.7 % (37.0-47.0); HEMOGLOBIN 9.8 g/dl (12.5-16.0)
--- NOTE | 2021-08-13 18:16 | NUR ---
Pt had uneventful shift. Continuing to trend H&H and remaining stable. PICC removed per orders and 20 gauge IVs started to left and right forearm. Octreotide gtt running per orders. Diet advance to mech soft and pt tolerating.
[2021-08-13 19:52] VITALS: BP 106/77; PULSE 94; TEMP 98.1
--- NOTE | 2021-08-13 21:00 | NUR ---
Patient is resting in bed, alert and oriented x 4, VSS, states pain in her abdomen. NS running at 50ml/hr. Assessment completed, medications provided, no other needs at this time. Call light within reach.
[2021-08-13 21:08] LABS: HEMATOCRIT 26.7 % (37.0-47.0); HEMOGLOBIN 9.3 g/dl (12.5-16.0)
[2021-08-14 00:23] VITALS: BP 99/59; PULSE 91; TEMP 98.3
[2021-08-14 04:28] VITALS: BP 106/73; PULSE 80; TEMP 97.5
--- NOTE | 2021-08-14 05:35 | NUR ---
Patient has been stlable along the nigh. She just asked for one dose of pain medication. Report will be given to day RN.
[2021-08-14 06:58] LABS: BASO % 0.2 % (0.0-2.0); EOS # 0.1 K/mm3 (0.0-0.7); GRAN # 3.4 K/mm3 (1.4-6.5); LYMPH # 0.7 K/mm3 (1.2-3.4); LYMPH % 14.6 % (20.0-51.0); MEAN CELL VOLUME 86 fl (80.0-100.0); MEAN CORPUSCULAR HGB CONC 36 g/dl (33.0-37.0); MEAN PLATELET VOLUME 9.5 fl (7.4-10.4); MONO # 0.6 K/mm3 (0.1-0.6); MONO % 12.4 % (1.7-9.3); PLATELET COUNT 121 K/mm3 (130-400); RED BLOOD COUNT 2.84 M/mm3 (4.10-5.30); REDCELL DISTRIBUTION WIDTH-CV 17.5 % (11.5-14.5)
[2021-08-14 07:08] LABS: HEMATOCRIT 24.5 % (37.0-47.0); HEMOGLOBIN 8.7 g/dl (12.5-16.0); MEAN CORPUSCULAR HEMOGLOBIN 31 pg (27-31)
[2021-08-14 07:18] LABS: CALCIUM 6.8 mg/dL (8.4-10.2); CREATININE, serum 0.43 mg/dL (0.57-1.11); POTASSIUM 3.1 mmol/L (3.5-4.5)
[2021-08-14 08:06] VITALS: BP 105/70; PULSE 87; TEMP 98
--- NOTE | 2021-08-14 08:20 | NUR ---
Shift assessment complete. Pt resting in bed. A&Ox4. Vitals stable. BPs better today. Denies pain or nausea. Abdomen does feel slightly firm. Pt denies tenderness but states she feels "a little bloated." Bowel sounds active. Hgb remains stable at 9.3 this morning. Octreotide drip running per orders. Pt denies needs at this time. Continuing to monitor.
[2021-08-14 11:08] VITALS: BP 112/79; PULSE 90; TEMP 98
--- NOTE | 2021-08-14 14:20 | NUR ---
Pt requested to go home today. recommended pt stay at least one more night and reassess tomorrow, discussed risks of discharging at this time and pt verbalized understanding. This RN discussed w/pt as well and answered all questions. Pt's mom updated via phone as well per pt request. After discussing w/her mom pt decided to leave against medical advice and requested AMA form to sign. This RN brought pt the form and re-explained the risks of leaving. Pt verbalized understanding and signed the form which was placed on the chart. IVs to left and right forearms removed w/tips intact. Pt provided w/discharge summary and educated on s/s of complications, importance of taking medications as prescribed, and follow-up appointments and labs. Escorted pt out w/all belongings.
[2021-08-14] MEDS ORDERED: FERROUS SU325 MG/TAB PO (14:26)
[2021-08-14] MEDS ORDERED: LEVAQUIN 750MG750 M1 PO (14:27)
[2021-08-14] MEDS ORDERED: INDERAL 20MG20 MG PO (14:43)
[2021-08-14] MEDS ORDERED: PROTONIX 40MG T40 MG PO (15:11)
== END 2021-08-14 14:20 | disposition left against medical advice (07) | DRG 432 ==
LOC: COL.ER 07:35 → ICU 08:38 → EDBEDREQ 09:00 → MEDICAL 08-10 16:57
PROVIDERS: Emergency Medicine; Internal Medicine; Internal Medicine Pulmonary Disease; Nurse Practitioner Family; Physician Assistant; Student in an Organized Health Care Education/Training Program; ADMIT Internal Medicine
PROC: 02HV33Z Insertion of Infusion Device into Superior Vena Cava, Percutaneous Approach (ICD-10-PCS; principal; 2021-08-10)
DX: K74.60 Unspecified cirrhosis of liver (principal); A40.3 Sepsis due to Streptococcus pneumoniae; T80.211A Bloodstream infection due to central venous catheter, initial encounter; I85.11 Secondary esophageal varices with bleeding; K76.6 Portal hypertension; R18.8 Other ascites; F17.210 Nicotine dependence, cigarettes, uncomplicated; E10.65 Type 1 diabetes mellitus with hyperglycemia; K75.4 Autoimmune hepatitis; D64.9 Anemia, unspecified; E10.649 Type 1 diabetes mellitus with hypoglycemia without coma; E87.6 Hypokalemia; Z88.0 Allergy status to penicillin; Z23 Encounter for immunization
CPT/HCPCS: 99233-AI; 99239; C1751; C9113; J0330; J0610; J1170; J1815; J1956; J2270; J2354; J2405; J2550; J2704; J2765; J3010; J3475; J3480; J7030; J7040; J7500; P9016; Q9967

== ENCOUNTER 2021-09-09 08:01 | Day surgery (SDC) | payer MEDICARE, MEDICAID ==
[~2021-09-09] VITALS: Ht 170.2 cm; Wt 57.0 kg
[~2021-09-09 08:01] MED LIST changes: +FERROUS SU325 MG/TAB PO; +INDERAL 20MG20 MG PO; +LEVAQUIN 750MG750 M1 PO; +PROTONIX 40MG T40 MG PO
[2021-09-09 08:15] VITALS: BP 115/80; PULSE 86; TEMP 97.7
--- NOTE | 2021-09-09 08:40 | NUR ---
KAI Palafox was notified of the patient's blood sugar level of 374. He verbalized understanding and orders were obtained Insulin and entered in the computer.
--- NOTE | 2021-09-09 08:50 | NUR ---
Novolog 15 units was administered subcutaneously as ordered. KAI Palafox was notified the medication was given and he ordered from the blood sugar to be rechecked in 30 minutes. The nurse verbalized understanding of the report given.
--- NOTE | 2021-09-09 09:23 | NUR ---
The patient's blood sugar was rechecked a result of 326. Javy, TOE POUNDER was notified of the level and wants the nurse to recheck the patient's blood sugar again in 30 minutes.
--- NOTE | 2021-09-09 10:48 | NUR ---
The patient's blood was rechecked with a result of 271. Javy LAMP SHADE ASSEMBLER was notified and he said the patient was cleared for her procedure. The doctor and endoscopy nurse were notified that the patient is now ready for her procedure.
[2021-09-09 12:00] VITALS: BP 109/89; PULSE 95; TEMP 98
--- NOTE | 2021-09-09 12:00 | NUR ---
Pt arrived from procedure, drowsy but oriented. Mom is present. Vitals obtained. Verbal room report obtained. Pt requested ice water to drink and sugar free vanilla pudding. Denies nausea. No vomiting. Pt was then assisted to bathroom. Pt is ambulating without difficulty. Call giordano remains within reach.
--- NOTE | 2021-09-09 12:08 | NUR ---
Blood sugar obtained.
[2021-09-09 12:15] VITALS: BP 115/86; PULSE 90
--- NOTE | 2021-09-09 12:15 | NUR ---
Vitals obtained. Pt is awake and oriented. Pt has finished her pudding and denies nausea. Call giordano remains within reach.
[2021-09-09 12:30] VITALS: BP 107/84; PULSE 91
--- NOTE | 2021-09-09 12:30 | NUR ---
Vitals obtained. pt continues to deny nausea and expressed desire to be discharged.
--- NOTE | 2021-09-09 12:45 | NUR ---
IV discontinued. Catheter tip intact. Pressure bandage applied. No redness or swelling noted. DC instructions and educational material reviewed with pt, who verbalized understanding and signed the related paperwork. Pt has already changed into personal clothes. Questions answered. Just awaiting the DR to speak with pt.
--- NOTE | 2021-09-09 13:22 | NUR ---
PHILL Teran asked if pt needed to speak with the pt before leaving. RN stated did not. Pt's mother has to leave for work. Pt was dismissed from endo via wheelchair to the pt entrence by Billie POLLOCK. Pt has DC packet and personal belongings and was transferred into the care of her mother, who is present to drive.
[2021-09-09 16:12] VITALS: BP 111/78; PULSE 87
== END 2021-09-09 13:20 | disposition home or self-care (01) ==
LOC: SDCO 08:01
DX: K74.60 Unspecified cirrhosis of liver (principal); I85.11 Secondary esophageal varices with bleeding; F17.210 Nicotine dependence, cigarettes, uncomplicated; Z86.16 Personal history of COVID-19
CPT/HCPCS: J1815; J2704

== ENCOUNTER 2021-10-07 06:13 | Day surgery (SDC) | payer MEDICARE, MEDICAID ==
[~2021-10-07] VITALS: Ht 170.2 cm; Wt 56.8 kg
[2021-10-07 06:55] VITALS: BP 104/80; PULSE 99; TEMP 97.4
[2021-10-07 07:25] VITALS: BP 107/80; PULSE 96; TEMP 97.1
[2021-10-07 07:40] VITALS: BP 109/85; PULSE 94
--- NOTE | 2021-10-07 07:49 | NUR ---
0725: Patient arrived back into bay 2 following endo procedure. Report received from PHILL Amador . Patient alert and awake. Requesting diet sprite and vanilla pudding. Blood sugar checked, Dr. Kaplan notified of result. Call light left within reach. 0730: MD in to see patient. Went over results of procedure with patient. 0750: Patient tolerated food and drink well. Meets discharge criteria went through discharge instructions with patient. Questions answered. IV removed without complications. Patient escorted to patient entrance. Met mom and daughter at entrance. Patient left in the care of her family
[2021-10-07 07:55] VITALS: BP 104/81; PULSE 95
== END 2021-10-07 08:00 | disposition home or self-care (01) ==
LOC: SDCO 06:13
DX: I85.00 Esophageal varices without bleeding (principal); K74.60 Unspecified cirrhosis of liver; F17.210 Nicotine dependence, cigarettes, uncomplicated; Z86.16 Personal history of COVID-19
CPT/HCPCS: J2704; J7030

== ENCOUNTER 2021-11-11 06:30 | Day surgery (SDC) | payer MEDICARE, MEDICAID ==
[~2021-11-11] VITALS: Ht 170.2 cm; Wt 58.7 kg
[2021-11-11 07:24] VITALS: BP 113/78; PULSE 92; TEMP 97.4
[2021-11-11 08:05] VITALS: BP 109/87; PULSE 16; TEMP 97.3
--- NOTE | 2021-11-11 08:05 | NUR ---
PATIENT TO ROOM 4 VIA CART. ASSIST TO BED X 1. VITAL SIGNS WNL. GLUCOSE IS 382, SHE WAS 368 PRIOR TO PROCEDURE AND RECEIVED 10 UNITS OF INSULIN. SHE REQUESTS A MUFFIN, JELLO, AND APPLE JUICE. WILL CONTINUE TO MONITOR.
[2021-11-11 08:20] VITALS: BP 111/86; PULSE 89
--- NOTE | 2021-11-11 08:20 | NUR ---
PATIENT IS AWAKE AND REPORTS NO NAUSEA OR PAIN. DOCTOR IS IN ROOM SPEAKING WITH HER. WILL CONTINUE TO MONITOR.
[2021-11-11 08:35] VITALS: BP 114/86; PULSE 86
--- NOTE | 2021-11-11 08:35 | NUR ---
PATIENT IS READY FOR DISCHARGE. VITAL SIGNS WNL. SHE IS AWAKE AND ORIENTED. IV DISCONTINUED AND DISCHARGE INSTRUCTIONS REVIEWED. MOTHER IS DOWNSTAIRS WAITING FOR PATIENT. WILL ESCORT PATIENT IN WHEELCHAIR WHEN DRESSED.
== END 2021-11-11 08:35 | disposition home or self-care (01) ==
LOC: SDCO 06:30
DX: K74.60 Unspecified cirrhosis of liver (principal); I85.10 Secondary esophageal varices without bleeding; E10.9 Type 1 diabetes mellitus without complications; Z79.4 Long term (current) use of insulin; Z86.16 Personal history of COVID-19
CPT/HCPCS: J1815; J2704; J7030

== ENCOUNTER 2021-12-16 09:05 | Day surgery (SDC) | payer MEDICARE, MEDICAID ==
[~2021-12-16] VITALS: Ht 170.2 cm; Wt 56.8 kg
--- NOTE | 2021-12-16 10:15 | NUR ---
1015 TRANSFERRED PT VIA WHEELCHAIR TO PERSONAL VEHICLE TO BE DRIVEN HOME BY GRANDDAUGHTER.
[2021-12-16 10:42] VITALS: BP 114/84; PULSE 99; TEMP 97.6
[2021-12-16 11:05] VITALS: BP 100/76; PULSE 99; TEMP 97.7
[2021-12-16 11:20] VITALS: BP 102/78; PULSE 91
[2021-12-16 11:35] VITALS: BP 104/89; PULSE 88
--- NOTE | 2021-12-16 12:00 | NUR ---
1105 PT RETURNED TO BAY 8 VIA CART. TRANSFERRED TO CHAIR WITH RN ASSIST. ALERT AND ORIENTED. MONITORS ATTACHED, INTERVALS AND ALARMS SET. VSS. PT DENIES PAIN OR NAUSEA. B, PER AUTO TRANSMISSION TECHNICIAN OK FOR PT TO EAT, DRINK AND D/C HOME. FOOD AND DRINK PROVIDED. CALL LIGHT IN REACH. 1120 VSS. PT DENIES DISCOMFORT. TOLERATING FOOD AND DRINK WELL. 1135 VSS. PT DENIES DISCOMFORT. REVIEWED DISCHARGE INSTRUCTIONS AND EDUCATION MATERIAL, ANSWERED ALL QUESTIONS. IV REMOVED WITHOUT COMPLICATIONS. PT ALLOWED TO DRESS. 1200 TRANSFERRED PT VIA WHEELCHAIR TO PERSONAL VEHICLE TO BE DRIVEN HOME BY MOM.
== END 2021-12-16 12:00 | disposition home or self-care (01) ==
LOC: SDCO 09:05
DX: I85.10 Secondary esophageal varices without bleeding (principal); K74.60 Unspecified cirrhosis of liver; F17.210 Nicotine dependence, cigarettes, uncomplicated
CPT/HCPCS: J1815; J2704; J7120

== ENCOUNTER 2022-01-14 15:43 | Emergency (ER) | payer SELFPAY ==
[~2022-01-14] VITALS: Ht 170.2 cm; Wt 56.8 kg
[2022-01-14 15:52] VITALS: BP 117/79; TEMP 97.8
[2022-01-14] MEDS ORDERED: FLEXERIL 1010 MG/TAB PO (16:14)
[2022-01-14] MEDS ORDERED: NORCO 325 MG-51 TAB PO (16:14)
[2022-01-14 17:10] VITALS: PULSE 90
== END 2022-01-14 17:10 | disposition home or self-care (01) ==
LOC: COL.ER 15:43
DX: S20.212A Contusion of left front wall of thorax, initial encounter (principal); F17.200 Nicotine dependence, unspecified, uncomplicated; Z98.61 Coronary angioplasty status; Z28.310 Unvaccinated for COVID-19; V89.2XXA Person injured in unspecified motor-vehicle accident, traffic, initial encounter; Y92.410 Unspecified street and highway as the place of occurrence of the external cause
CPT/HCPCS: A9284

== ENCOUNTER 2023-05-24 11:03 | Outpatient (CLI) | payer MEDICARE, MEDICAID ==
[~2023-05-24] VITALS: Ht 170.2 cm; Wt 61.4 kg
[~2023-05-24 11:03] MED LIST changes: +FLEXERIL 1010 MG/TAB PO; +NORCO 325 MG-51 TAB PO; +VITAL-D1 TAB PO; +VITAMIN A10k
[2023-05-24] MEDS ORDERED: LASIX 40MG TABL40 MG PO (11:26)
[2023-05-24] MEDS ORDERED: ALDACTONE 100M100 MG PO (11:27)
[2023-05-24] MEDS ORDERED: MULTI VITAMINS1 TAB PO (11:28)
[2023-05-24 11:29] VITALS: BP 128/91; PULSE 128; TEMP 97.4
[2023-05-24 13:13] VITALS: BP 105/73; PULSE 114
--- NOTE | 2023-05-24 15:20 | NUR ---
Meal tray was ordered for pt while in EU following paracentesis. Pt ate 100% of food, no c/o nausea or other issue. She tolerated albumin without issue. IV DC'd, site wrapped with coban. Pt assisted out to meet her ride at hospital entrance.
== END 2023-05-24 15:20 | disposition home or self-care (01) ==
LOC: COL.RAD 11:03
DX: K74.02 Hepatic fibrosis, advanced fibrosis (principal)
CPT/HCPCS: P9047

== ENCOUNTER 2023-06-07 10:58 | Outpatient (CLI) | payer MEDICARE ==
[~2023-06-07] VITALS: Ht 170.2 cm; Wt 64.7 kg
[~2023-06-07 10:58] MED LIST changes: +ALDACTONE 100M100 MG PO; +LASIX 40MG TABL40 MG PO; +MULTI VITAMINS1 TAB PO
[2023-06-07 11:09] VITALS: BP 115/82; PULSE 112; TEMP 97.6
[2023-06-07 13:00] VITALS: BP 94/65; PULSE 98
[2023-06-07 13:13] LABS: PERITONEAL -POLYMORPHONUCLEAR 13.6 % (0-25)
== END 2023-06-07 16:54 ==
LOC: COL.RAD 10:58 → EUO 10:58 → COL.RAD 11:45
PROVIDERS: Nurse Practitioner Adult Health
DX: D84.9 Immunodeficiency, unspecified (principal); K75.4 Autoimmune hepatitis; K74.69 Other cirrhosis of liver; K76.6 Portal hypertension
CPT/HCPCS: P9047

== ENCOUNTER 2023-06-21 09:43 | Outpatient (CLI) | payer MEDICARE ==
[~2023-06-21] VITALS: Ht 170.2 cm; Wt 57.5 kg
[2023-06-21 10:09] VITALS: BP 110/75; PULSE 90; TEMP 97.6
[2023-06-21 11:31] VITALS: BP 109/73; PULSE 93
[2023-06-21] MEDS ORDERED: Albumin (Human) 25 G/100 ML IVPB IV SCH (11:45)
[2023-06-21 11:53] VITALS: BP 109/73; PULSE 93
[2023-06-21 12:20] LABS: PERITONEAL -POLYMORPHONUCLEAR 8.7 % (0-25)
--- NOTE | 2023-06-21 13:08 | NUR ---
50 GM OF ALBUMIN INFUSED ORDERED, PT TOLERATED WELL, IV D'CD AND DISCHARGED AMBULATORY
== END 2023-06-21 13:45 | disposition home or self-care (01) ==
LOC: COL.RAD 09:43
PROVIDERS: Nurse Practitioner Adult Health
DX: K74.69 Other cirrhosis of liver (principal); K76.6 Portal hypertension; K75.4 Autoimmune hepatitis; D84.9 Immunodeficiency, unspecified
CPT/HCPCS: P9047

== ENCOUNTER 2023-07-17 20:28 | Inpatient (IN) | payer MEDICARE ==
[~2023-07-17] VITALS: Ht 170.2 cm; Wt 59.1 kg
[~2023-07-17 20:28] MED LIST changes: -VITAMIN A10k; +VITAMIN A10k PO
[2023-07-17] MEDS ORDERED: NS 1,000 ML IV ONE (21:00)
[2023-07-17] MEDS ORDERED: Ondansetron 4 MG/2 ML VIAL IV ONE (21:15)
[2023-07-17 21:19] LABS: BASO % 0.6 % (0.0-2.0); EOS # 0.1 K/mm3 (0.0-0.7); EOS % 1.9 % (0.0-4.0); GRAN # 3.8 K/mm3 (1.4-6.5); GRAN % 80.2 % (42.2-75.2); HEMOGLOBIN 11.9 g/dl (12.5-16.0); LYMPH # 0.4 K/mm3 (1.2-3.4); LYMPH % 7.7 % (20.0-51.0); MEAN CELL VOLUME 96 fl (80.0-100.0); MEAN CORPUSCULAR HEMOGLOBIN 33 pg (27-31); MEAN CORPUSCULAR HGB CONC 34 g/dl (33.0-37.0); MEAN PLATELET VOLUME 9.7 fl (7.4-10.4); MONO # 0.4 K/mm3 (0.1-0.6); MONO % 9.4 % (1.7-9.3); PLATELET COUNT 110 K/mm3 (130-400); RED BLOOD COUNT 3.65 M/mm3 (4.10-5.30); REDCELL DISTRIBUTION WIDTH-CV 16.7 % (11.5-14.5)
[2023-07-17 21:20] LABS: HEMATOCRIT 35.1 % (37.0-47.0)
[2023-07-17 21:25] LABS: PARTIAL THROMBOPLASTIN TIME 32.2 SECONDS (26.0-37.0)
[2023-07-17 21:36] LABS: LACTIC ACID 2.3 mmol/L (0.5-2.0)
[2023-07-17 21:42] LABS: ALBUMIN 3.5 gm/dL (3.5-5.0); CREATININE, serum 0.56 mg/dL (0.57-1.11); POTASSIUM 3.8 mmol/L (3.5-4.5)
[2023-07-17 21:49] LABS: TROPONIN-I 0.043 ng/mL (0.00-0.033)
[2023-07-17 22:51] LABS: INR 1.5 (0.8-3.0)
[2023-07-17 22:52] LABS: PROTHROMBIN TIME 16.4 SECONDS (9.7-12.8)
[2023-07-18] VITALS (8 sets, daily range): BP systolic 100–105; BP diastolic 62–70; PULSE 84–88; TEMP 97.6–98
[2023-07-18] MEDS ORDERED: Lactulose Oral Soln 10 GM/15 ML CUP PO ONE (00:15)
[2023-07-18] MEDS ORDERED: Insulin Aspart (NovoLOG) SQ SCH ×2 (00:23→08:00)
[2023-07-18 00:25] LABS: COLLECTION METHOD CATHETER
[2023-07-18] MEDS ORDERED: Dextrose 50% Water 25 GM/50 ML SYRINGE IV PRN (00:30)
[2023-07-18] MEDS ORDERED: Dextrose (Glucose) 15 GM (4 x 3.75 GM) Chewable TABLET PACK PO PRN (00:30)
[2023-07-18] MEDS ORDERED: Glucagon 1 MG VIAL IM PRN (00:30)
[2023-07-18 00:36] LABS: PH 6.5 (5.0-8.5); URINE APPEARANCE CLEAR (CLEAR/HAZY); URINE BLOOD NEGATIVE (NEGATIVE); URINE COLOR Dark Yellow (YELLOW); URINE GLUCOSE 3+ (NEGATIVE); URINE KETONE NEGATIVE (NEGATIVE); URINE NITRATE NEGATIVE (NEGATIVE); URINE PROTEIN(semi-quant) TRACE (NEGATIVE)
[2023-07-18] MEDS ORDERED: ENULOSE10 GM/151 PO (02:04)
--- NOTE | 2023-07-18 02:40 | NUR ---
PT ARRIVED TO ROOM 354 FROM ED AROUND 0115. A&O X3. SLOW TO RESPOND & DROWSY. VSS ON ROOM AIR. PT ABD DISTENDED. DENYING PAIN OR N/V AT THIS TIME. INT TO LEFT AC PATENT. PT ORIENTED TO ROOM & POLICIES. DENYING FURTHER NEEDS. FALL PRECAUTIONS IN PLACE & CALL LIGHT IN REACH
[2023-07-18] MEDS ORDERED: Nitrofurantoin (Mono/Macro) 100 MG CAP PO SCH (03:00)
[2023-07-18] MEDS ORDERED: Meropenem 500 MG in Water For Injection,Sterile 10 ML IV SCH (03:00)
[2023-07-18 04:52] LABS: BASO % 0.5 % (0.0-2.0); EOS # 0.1 K/mm3 (0.0-0.7); EOS % 2.5 % (0.0-4.0); GRAN % 75.1 % (42.2-75.2); HEMOGLOBIN 10.5 g/dl (12.5-16.0); LYMPH # 0.3 K/mm3 (1.2-3.4); LYMPH % 8.5 % (20.0-51.0); MEAN CELL VOLUME 94 fl (80.0-100.0); MEAN CORPUSCULAR HEMOGLOBIN 33 pg (27-31); MEAN CORPUSCULAR HGB CONC 35 g/dl (33.0-37.0); MEAN PLATELET VOLUME 9.9 fl (7.4-10.4); MONO # 0.5 K/mm3 (0.1-0.6); MONO % 13.2 % (1.7-9.3); PLATELET COUNT 103 K/mm3 (130-400); REDCELL DISTRIBUTION WIDTH-CV 16.7 % (11.5-14.5)
[2023-07-18 04:55] LABS: HEMATOCRIT 30.1 % (37.0-47.0)
[2023-07-18 06:16] LABS: ALBUMIN 2.8 gm/dL (3.5-5.0); BILIRUBIN,TOTAL 2.6 mg/dL (0.2-1.2); CALCIUM 8.2 mg/dL (8.4-10.2); CREATININE, serum 0.5 mg/dL (0.57-1.11); POTASSIUM 3.8 mmol/L (3.5-4.5); TOTAL PROTEIN 5.7 gm/dL (6.2-8.1)
--- NOTE | 2023-07-18 06:30 | NUR ---
PT RESTING IN BED. DROWSY. DENYING FURTHER NEEDS THIS MORNING. CALL LIGHT IN REACH
[2023-07-18] MEDS ORDERED: Lactulose Oral Soln 10 GM/15 ML CUP PO SCH (09:00)
[2023-07-18] MEDS ORDERED: Pantoprazole 40 MG in NS 10 ML IV SCH (09:00)
[2023-07-18] MEDS ORDERED: azaTHIOprine 50 MG TAB PO SCH (09:00)
[2023-07-18] MEDS ORDERED: Furosemide 20 MG TAB PO SCH (09:00)
[2023-07-18] MEDS ORDERED: Multivitamin TAB PO SCH (09:00)
[2023-07-18] MEDS ORDERED: Spironolactone 25 MG TAB PO SCH (09:00)
[2023-07-18] MEDS ORDERED: CIPRO 500MG TA500 MG PO (09:01)
[2023-07-18] MEDS ORDERED: INSULIN AS100 UNIT/3 (09:01)
[2023-07-18] MEDS ORDERED: LANTUS SOLOS100 U/ML SQ (09:03)
[2023-07-18] MEDS ORDERED: ROXICODONE 55 MG/TAB PO (09:03)
--- NOTE | 2023-07-18 10:14 | NUR ---
ASSESSMENT COMPLETE. VSS. AXOX4. IV INTACT. PATIENT IS PENDING AN ABDOMENAL ULTRASOUND. NEEDS TO HOLD LUNCH TRY BEFORE PROCEDURE CAN BE DONE. PER HOSPITALIST PATIENT CAN DC HOME IF ABD US IS CLEAR. PATIENT IS RESTING IN BED X3 BEDRAILS UP. CALL LIGHT WITHIN REACH.
--- NOTE | 2023-07-18 12:47 | NUR ---
Initial visit; Superintendent Commissary recognized Lita as she recognizsed Superintendent Commissary from former hospital visits. Lita quite ill and thanked Superintendent Commissary for asking about her overall health. Lita would like to be included in Superintendent Commissary's prayer list.
[2023-07-18] MEDS ORDERED: Ondansetron 4 MG/2 ML VIAL IV PRN (13:30)
[2023-07-18] MEDS ORDERED: CIPRO 250MG TA250 MG PO (15:48)
--- NOTE | 2023-07-18 16:30 | NUR ---
patient received discharge paperwork. acknowledged understanding of instructions, follow up appointments, and medications. patient states she will take her lactulose. mother was at bedside with the patient. IV discontinued, telemetry discontinued. patient was transported via wheelchair with nursing staff. no issues.
--- NOTE | 2023-07-18 17:39 | NUR ---
lime kiln worker met with patient to discuss discharge planning. Patient reports she lives in [place]. best point of contact is Laurence, mother, P# [phone]. PCP is at [facility]. [facility] [place]. SW provided information for [facility] to assist with medication cost. No DPOA and not interested in completing one. NO DME, reports to be independent with ADLS. Patient's mom will transport her to and from appointments if she is unable to drive herself. patient would like to return home at time of discharge. Discharge plan: Home
== END 2023-07-18 17:05 | disposition home or self-care (01) | DRG 872 ==
LOC: COL.ER 20:28 → MEDICAL 07-18 00:04
PROVIDERS: Emergency Medicine; Nurse Practitioner Family; ADMIT Hospitalist
DX: A41.9 Sepsis, unspecified organism (principal); N39.0 Urinary tract infection, site not specified; E87.20 Acidosis, unspecified; K76.6 Portal hypertension; E87.1 Hypo-osmolality and hyponatremia; R18.8 Other ascites; K76.82 Hepatic encephalopathy; F17.210 Nicotine dependence, cigarettes, uncomplicated; K74.60 Unspecified cirrhosis of liver; K75.4 Autoimmune hepatitis; R65.20 Severe sepsis without septic shock; E10.9 Type 1 diabetes mellitus without complications; R16.1 Splenomegaly, not elsewhere classified; K59.00 Constipation, unspecified; D72.819 Decreased white blood cell count, unspecified; R79.89 Other specified abnormal findings of blood chemistry; D69.6 Thrombocytopenia, unspecified; D64.9 Anemia, unspecified; Z91.148 Patient's other noncompliance with medication regimen for other reason; Z88.1 Allergy status to other antibiotic agents; Z88.0 Allergy status to penicillin; Z88.8 Allergy status to other drugs, medicaments and biological substances; Z79.4 Long term (current) use of insulin; Z79.899 Other long term (current) drug therapy
CPT/HCPCS: C9113; J1650; J1815; J2185; J2405; J7030; J7500

== ENCOUNTER 2023-07-19 00:17 | Emergency (ER) | payer MEDICARE ==
[~2023-07-19] VITALS: Ht 170.2 cm; Wt 52.3 kg
[~2023-07-19 00:17] MED LIST changes: +CIPRO 250MG TA250 MG PO; +CIPRO 500MG TA500 MG PO; +ENULOSE10 GM/151 PO; +INSULIN AS100 UNIT/3; +ROXICODONE 55 MG/TAB PO
[2023-07-19 00:18] VITALS: TEMP 98
[2023-07-19] MEDS ORDERED: D5NS 1,000 ML IV SCH ×2 (00:30→03:15)
[2023-07-19 00:53] LABS: BASO % 0.5 % (0.0-2.0); EOS # 0.1 K/mm3 (0.0-0.7); EOS % 1.7 % (0.0-4.0); GRAN # 4.7 K/mm3 (1.4-6.5); HEMATOCRIT 38.4 % (37.0-47.0); LYMPH # 0.5 K/mm3 (1.2-3.4); LYMPH % 8.1 % (20.0-51.0); MEAN CORPUSCULAR HGB CONC 33 g/dl (33.0-37.0); MONO # 0.6 K/mm3 (0.1-0.6); MONO % 9.4 % (1.7-9.3); PLATELET COUNT 144 K/mm3 (130-400); RED BLOOD COUNT 3.85 M/mm3 (4.10-5.30); REDCELL DISTRIBUTION WIDTH-CV 17.2 % (11.5-14.5)
[2023-07-19 00:54] LABS: HEMOGLOBIN 12.7 g/dl (12.5-16.0); MEAN CELL VOLUME 100 fl (80.0-100.0); MEAN CORPUSCULAR HEMOGLOBIN 33 pg (27-31)
[2023-07-19 01:02] LABS: INR 1.6 (0.8-3.0); PROTHROMBIN TIME 16.7 SECONDS (9.7-12.8)
[2023-07-19 01:05] LABS: PARTIAL THROMBOPLASTIN TIME 31.8 SECONDS (26.0-37.0)
[2023-07-19 01:07] LABS: COLLECTION METHOD CATHETER
[2023-07-19 01:11] LABS: ALANINE AMINOTRANSFERASE 89 U/L (0-55); ALBUMIN 3.3 gm/dL (3.5-5.0); ALCOHOL(ethanol),MEDICAL < 10 mg/dL (0-10); ALKALINE PHOSPHATASE 390 U/L (40-150); ANION GAP 10 mmol/L (7-16); AST,SGOT 137 U/L (5-34); BILIRUBIN,TOTAL 3.1 mg/dL (0.2-1.2); BLOOD UREA NITROGEN 9 mg/dL (7-19); C-REACTIVE PROTEIN 1.28 mg/dL (0.00-0.50); CALCIUM 8.7 mg/dL (8.4-10.2); CARBON DIOXIDE 19 mmol/L (22-29); CHLORIDE 112 mmol/L (98-107); CREATININE, serum 0.48 mg/dL (0.57-1.11); GLUCOSE 157 mg/dL (70-99); LACTIC ACID 3.1 mmol/L (0.5-2.0); LIPASE 56 U/L (8-78); MAGNESIUM 1.8 mg/dL (1.6-2.6); POTASSIUM 3.4 mmol/L (3.5-4.5); SODIUM 141 mmol/L (136-145); TOTAL PROTEIN 6.7 gm/dL (6.2-8.1)
[2023-07-19 01:13] LABS: URINE APPEARANCE CLEAR (CLEAR/HAZY); URINE BLOOD NEGATIVE (NEGATIVE); URINE COLOR Dark Yellow (YELLOW); URINE GLUCOSE NEGATIVE (NEGATIVE); URINE KETONE NEGATIVE (NEGATIVE); URINE NITRATE NEGATIVE (NEGATIVE); URINE PROTEIN(semi-quant) NEGATIVE (NEGATIVE)
[2023-07-19 01:23] LABS: TRICYCLIC ANTIDEPRESS URINE NEGATIVE (NEGATIVE)
[2023-07-19 01:59] LABS: HCG,QUANTITATIVE < 1 mIU/mL
[2023-07-19 08:03] VITALS: BP 114/80; PULSE 86
== END 2023-07-19 08:03 | disposition short-term general hospital (02) ==
LOC: COL.ER 00:17
PROVIDERS: Emergency Medicine
DX: E10.649 Type 1 diabetes mellitus with hypoglycemia without coma (principal); R41.82 Altered mental status, unspecified; K76.82 Hepatic encephalopathy
CPT/HCPCS: J7042

== ENCOUNTER 2023-08-10 01:58 | Inpatient (IN) | payer MEDICARE ==
[2023-08-10] VITALS (10 sets, daily range): BP systolic 92–113; BP diastolic 55–72; PULSE 82–99; TEMP 97.3–98.4
[~2023-08-10] VITALS: Ht 170.2 cm; Wt 56.5 kg
[~2023-08-10 01:58] MED LIST changes: -CIPRO 250MG TA250 MG PO; +NOVOLOG FLEX100 U/ML SQ
[2023-08-10] MEDS ORDERED: NS 1,000 ML IV ONE (02:30)
[2023-08-10 02:48] LABS: BASO % 0.3 % (0.0-2.0); EOS # 0.1 K/mm3 (0.0-0.7); EOS % 2.7 % (0.0-4.0); GRAN # 2.5 K/mm3 (1.4-6.5); GRAN % 68.1 % (42.2-75.2); HEMOGLOBIN 11.1 g/dl (12.5-16.0); LYMPH # 0.4 K/mm3 (1.2-3.4); LYMPH % 10.9 % (20.0-51.0); MEAN CELL VOLUME 100 fl (80.0-100.0); MEAN CORPUSCULAR HEMOGLOBIN 33 pg (27-31); MEAN CORPUSCULAR HGB CONC 33 g/dl (33.0-37.0); MEAN PLATELET VOLUME 9.7 fl (7.4-10.4); MONO # 0.7 K/mm3 (0.1-0.6); MONO % 17.7 % (1.7-9.3); PLATELET COUNT 111 K/mm3 (130-400); RED BLOOD COUNT 3.33 M/mm3 (4.10-5.30); REDCELL DISTRIBUTION WIDTH-CV 16.1 % (11.5-14.5)
[2023-08-10 02:50] LABS: HEMATOCRIT 33.4 % (37.0-47.0)
[2023-08-10 03:04] LABS: ACETONE,SERUM NEGATIVE
[2023-08-10 03:09] LABS: ALANINE AMINOTRANSFERASE 106 U/L (0-55); ALBUMIN 2.8 gm/dL (3.5-5.0); ALKALINE PHOSPHATASE 464 U/L (40-150); ANION GAP 6 mmol/L (7-16); AST,SGOT 152 U/L (5-34); BILIRUBIN,TOTAL 3.6 mg/dL (0.2-1.2); BLOOD UREA NITROGEN 15 mg/dL (7-19); C-REACTIVE PROTEIN 0.88 mg/dL (0.00-0.50); CALCIUM 9.4 mg/dL (8.4-10.2); CARBON DIOXIDE 21 mmol/L (22-29); CHLORIDE 106 mmol/L (98-107); CREATININE, serum 0.68 mg/dL (0.57-1.11); LIPASE 55 U/L (8-78); POTASSIUM 4.3 mmol/L (3.5-4.5); SODIUM 133 mmol/L (136-145); TOTAL PROTEIN 6.9 gm/dL (6.2-8.1)
[2023-08-10 03:12] LABS: GLUCOSE 510 mg/dL (70-99)
[2023-08-10] MEDS ORDERED: Lactulose Oral Soln 10 GM/15 ML CUP PO ONE (03:15)
[2023-08-10] MEDS ORDERED: Insulin Regular Human (NovoLIN R/HumuLIN R) IV ONE (03:30)
[2023-08-10] MEDS ORDERED: NS 1,000 ML IV SCH (03:45)
[2023-08-10] MEDS ORDERED: Ondansetron 4 MG/2 ML VIAL IV PRN (03:45)
[2023-08-10] MEDS ORDERED: Acetaminophen 325 MG TAB PO PRN (03:45)
[2023-08-10] MEDS ORDERED: Dextrose (Glucose) 15 GM (4 x 3.75 GM) Chewable TABLET PACK PO PRN (04:30)
[2023-08-10] MEDS ORDERED: Glucagon 1 MG VIAL IM PRN (04:30)
[2023-08-10] MEDS ORDERED: Dextrose 50% Water 25 GM/50 ML SYRINGE IV PRN (04:30)
--- NOTE | 2023-08-10 04:30 | NUR ---
Report received from PHILL Berry.
--- NOTE | 2023-08-10 04:43 | NUR ---
Patient arrived to room 352 via stretcher.
--- NOTE | 2023-08-10 07:00 | NUR ---
PATIENT AWAKE IN BED WHILE RECEIVING SHIFT REPORT. SHE ASKS IF HEAR MOTHER WAS TALKING, WE EXPLAINED THAT PATIENTS MOTHER HAD LEFT FROM THE ER LAST NIGHT BEFORE PATIENT WAS TRANSFERRED INTO HER ROOM. PATIENT ORIENTED TO HERSELF AND LOCATION. SHE APPEARS VERY DROWSY. CALL LIGHT WITHIN REACH AND BED ALARMS IN PLACE. WILL CONTINUE TO MONITOR.
[2023-08-10] MEDS ORDERED: Insulin Lispro (HumaLOG) SQ SCH ×2 (08:00→17:00)
--- NOTE | 2023-08-10 08:32 | NUR ---
THIS RN ENTERED PATIENT ROOM TO ADMINISTER MORNING MEDICATIONS. PATIENT WAS SLEEPING AND WAS DIFFICULT TO AROUSE, WILL TRY AGAIN LATER.
[2023-08-10] MEDS ORDERED: XIFAXAN550 MG PO (08:58)
[2023-08-10] MEDS ORDERED: ELIQUIS 5MG PO (08:58)
[2023-08-10] MEDS ORDERED: ZOFRAN 4MG T4 MG/TAB PO (08:59)
[2023-08-10] MEDS ORDERED: Lactulose Oral Soln 10 GM/15 ML CUP PO SCH (09:00)
[2023-08-10] MEDS ORDERED: Pantoprazole 40 MG in NS 10 ML IV SCH (09:00)
[2023-08-10] MEDS ORDERED: Insulin Glargine-ygfn (Lantus) SQ ONE (09:30)
--- NOTE | 2023-08-10 10:10 | NUR ---
Initial visit (this stay): Patient indisposed, Instrumentation Manager spoke with her sister regarding Lita's health. Lita is hoping to be able to accomplish what she has to do today to be discharged. They thanked Instrumentation Manager for looking in on Lita and offering God's blessings.
--- NOTE | 2023-08-10 10:27 | NUR ---
PATIENT AWAKE IN ROOM WITH SISTER AT BEDSIDE. STILL APPEARS DROWSY BUT IS ANSWERING QUESTIONS APPROPRIATELY AND FOLLOWING COMMANDS. PATIENT AMBULATES TO BATHROOM WITH ASSISTANCE. SHE IS STILL WEAK AND DROWSY. PATIENT PLACED ON FALL PRECAUTIONS. WILL CONTINUE TO MONITOR.
[2023-08-10] MEDS ORDERED: rifAXIMin 550 MG TAB PO SCH ×2 (13:00→21:00)
[2023-08-10] MEDS ORDERED: THERA-D 20002000 IU PO (13:03)
[2023-08-10] MEDS ORDERED: BACTROBAN15 GM TOP (13:05)
--- NOTE | 2023-08-10 13:08 | NUR ---
FAMILY ASKED TO SPEAK WITH RN ABOUT THEIR CONCERNS. THEY THOUGHT HER MENTATION WOULD HAVE BEEN IMPROVED BY NOW AND ARE WONDERING WHAT MORE CAN BE DONE. THIS RN NOTIFIED DR. NOWAK OF FAMILY CONCERNS. SHE PLACED ADDITONAL MEDICATION ORDERS. THIS RN WENT THROUGH AND UPDATED HOME MEDICATIONS WITH LIST PROVIDED BY FAMILY.
[2023-08-10] MEDS ORDERED: LACTULOSE RC ONE (13:15)
[2023-08-10 13:55] LABS: INR 1.5 (0.8-3.0); PROTHROMBIN TIME 15.7 SECONDS (9.7-12.8)
[2023-08-10 14:10] LABS: ALBUMIN 2.7 gm/dL (3.5-5.0); BILIRUBIN,TOTAL 3.9 mg/dL (0.2-1.2); CALCIUM 8.7 mg/dL (8.4-10.2); CREATININE, serum 0.68 mg/dL (0.57-1.11); POTASSIUM 4.5 mmol/L (3.5-4.5)
[2023-08-10] MEDS ORDERED: Insulin Lispro (HumaLOG) SQ ONE (14:45)
[2023-08-10 15:35] LABS: TOTAL PROTEIN 6.9 gm/dL (6.2-8.1)
--- NOTE | 2023-08-10 15:53 | NUR ---
[employer] met with patient to discuss discharge planning. Patient lives in [place] with her mother, Laurence who is at bedside. Patient goes to the [facility] for primary care and obtains medications from [facility]. Patient has had some difficulties affording medications because her Medicaid was discontinued and she had to reapply. Her application is still pending. Patient does have Medicare coverage as well. Patient does not have DPOA-HC but was interested in taking home the form, which SW provided. Patient plans to return home at time of discharge. Discharge Plan: Home
[2023-08-10] MEDS ORDERED: Insulin Glargine-ygfn (Lantus) SQ SCH (21:00)
[2023-08-10] MEDS ORDERED: Apixaban 5 MG TAB PO SCH (21:00)
[2023-08-11 01:00] VITALS: BP_SYST 92
--- NOTE | 2023-08-11 01:59 | NUR ---
NURSING SHIFT ASSESSMENT COMPLETED. THE PATIENT WAS ALERT AND ORIENTED. THE PATIENT DENIED NEEDS AT THIS TIME. THE PLAN OF CARE AND EVENING MEDICATIONS REVIEWED. QUESTIONS AND CONCERNS ADDRESSED. A SISTER OF THE PATIENT ARRIVED DURING THIS TIME AND BROUGHT THE PATIENT SOME CHEESE STICKS AND A DIET COKE. CALL LIGHT AND PERSONAL BELONGINS WITHIN REACH. BED IN LOW POSITION. THE PATIENT IS UP IN THE ROOM WITH A STEADY GAIT.
[2023-08-11 02:57] VITALS: BP 111/69; PULSE 81; TEMP 97.5
[2023-08-11 04:16] VITALS: BP_SYST 111
[2023-08-11 06:16] LABS: BASO % 0.8 % (0.0-2.0); EOS # 0.1 K/mm3 (0.0-0.7); EOS % 4.1 % (0.0-4.0); GRAN # 1.8 K/mm3 (1.4-6.5); HEMOGLOBIN 10.2 g/dl (12.5-16.0); LYMPH # 0.3 K/mm3 (1.2-3.4); LYMPH % 12.4 % (20.0-51.0); MEAN CELL VOLUME 96 fl (80.0-100.0); MEAN CORPUSCULAR HEMOGLOBIN 33 pg (27-31); MEAN CORPUSCULAR HGB CONC 35 g/dl (33.0-37.0); MEAN PLATELET VOLUME 9.5 fl (7.4-10.4); MONO # 0.4 K/mm3 (0.1-0.6); MONO % 14.3 % (1.7-9.3); PLATELET COUNT 94 K/mm3 (130-400); RED BLOOD COUNT 3.07 M/mm3 (4.10-5.30); REDCELL DISTRIBUTION WIDTH-CV 15.7 % (11.5-14.5)
[2023-08-11 06:23] LABS: HEMATOCRIT 29.5 % (37.0-47.0)
[2023-08-11 06:48] LABS: ALBUMIN 2.4 gm/dL (3.5-5.0); BILIRUBIN,TOTAL 2.8 mg/dL (0.2-1.2); CREATININE, serum 0.55 mg/dL (0.57-1.11)
[2023-08-11 07:16] VITALS: BP 113/71; PULSE 80; TEMP 97.4
[2023-08-11 08:45] VITALS: BP_SYST 113
[2023-08-11] MEDS ORDERED: Ciprofloxacin 500 MG TAB PO SCH (09:00)
[2023-08-11] MEDS ORDERED: azaTHIOprine 50 MG TAB PO SCH (09:00)
--- NOTE | 2023-08-11 10:53 | NUR ---
Patient alert and oriented x4. Shift assessment complete, no new variances noted. Patient able to ambulate self around room and to bathroom with no issues. Tolerating food and fluids well. Denies pain at this time. Call light within reach, all needs met at this time.
[2023-08-11] MEDS ORDERED: Insulin Lispro (HumaLOG) SQ ONE (11:00)
[2023-08-11 11:17] VITALS: BP 106/59; PULSE 88; TEMP 98.7
[2023-08-11] MEDS ORDERED: Insulin Lispro (HumaLOG) SQ SCH (12:00)
--- NOTE | 2023-08-11 12:23 | NUR ---
Data: Patient accepted Cardiology Nurse Practitioner visit offered during Cardiology Nurse Practitioner rounds. Patient hoping to be discharged today. 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 Patient has a [id number] daughter. RN entered room during prayer to tell Patient she was being discharged. Assessment: Patient is both scared and concerned about the effects her liver condition are having on her daughter. Patient was tearful at times. Plan of Care: Cardiology Nurse Practitioner requested that RN contact Floor Worker in order to possibly provide Patient with a list of attorneys she could contact about her concerns of providing for her Daughter while she is in/out of hospitals. Cardiology Nurse Practitioner recommended (at Patient's request for gnosticism recommendation) the [facility] in [place] since it is local to Patient's home. Cardiology Nurse Practitioner provided supportive listening and prayer.
--- NOTE | 2023-08-11 12:41 | NUR ---
Discharge instructions discussed with patient including follow-up appointment, changes to medications, and education packets. Patient has no PCP, list of available PCPs provided with office numbers. Patient verbalized understanding that she needs to schedule appointment within suggested time frame. IV discontinued to right forearm with no complications.
[2023-08-11] MEDS ORDERED: Insulin Glargine-ygfn (Lantus) SQ SCH (21:00)
== END 2023-08-11 12:50 | disposition home or self-care (01) | DRG 443 ==
LOC: COL.ER 01:58 → MEDICAL 03:30
PROVIDERS: Emergency Medicine; Physician Assistant; ADMIT Internal Medicine
DX: K76.82 Hepatic encephalopathy (principal); K75.4 Autoimmune hepatitis; Z20.822 Contact with and (suspected) exposure to COVID-19; K21.9 Gastro-esophageal reflux disease without esophagitis; F17.210 Nicotine dependence, cigarettes, uncomplicated; K74.60 Unspecified cirrhosis of liver; E10.9 Type 1 diabetes mellitus without complications; Z88.6 Allergy status to analgesic agent; Z88.1 Allergy status to other antibiotic agents; Z88.0 Allergy status to penicillin; Z88.8 Allergy status to other drugs, medicaments and biological substances; Z79.4 Long term (current) use of insulin; Z79.899 Other long term (current) drug therapy; Z23 Encounter for immunization
CPT/HCPCS: C9113; J0780; J1650; J1815; J7030; J7500

== ENCOUNTER 2023-12-19 11:32 | Emergency (ER) | payer MEDICARE, MEDICAID ==
[~2023-12-19] VITALS: Ht 170.2 cm; Wt 59.1 kg
[~2023-12-19 11:32] MED LIST changes: +BACTROBAN15 GM TOP; +ELIQUIS 5MG PO; +THERA-D 20002000 IU PO; +XIFAXAN550 MG PO; +ZOFRAN 4MG T4 MG/TAB PO
[2023-12-19 11:43] VITALS: BP 107/71; TEMP 98.1
[2023-12-19] MEDS ORDERED: ULTRAM 50MG TAB50 MG PO (15:06)
[2023-12-19 15:35] VITALS: PULSE 103
== END 2023-12-19 15:35 | disposition home or self-care (01) ==
LOC: COL.ER 11:32
DX: S22.31XA Fracture of one rib, right side, initial encounter for closed fracture (principal); F17.210 Nicotine dependence, cigarettes, uncomplicated; X58.XXXA Exposure to other specified factors, initial encounter
CPT/HCPCS: A9284

== ENCOUNTER 2024-01-09 17:44 | Emergency (ER) | payer MEDICARE, MEDICAID ==
[~2024-01-09] VITALS: Ht 170.2 cm; Wt 63.6 kg
[~2024-01-09 17:44] MED LIST changes: +ULTRAM 50MG TAB50 MG PO
[2024-01-09 17:46] VITALS: BP 120/82; TEMP 98.2
[2024-01-09] MEDS ORDERED: ULTRAM 50MG TAB50 MG PO (18:54)
[2024-01-09] MEDS ORDERED: traMADol 50 MG TAB PO ONE (19:00)
[2024-01-09 19:16] VITALS: PULSE 110
== END 2024-01-09 19:17 | disposition home or self-care (01) ==
LOC: COL.ER 17:44
DX: S20.211A Contusion of right front wall of thorax, initial encounter (principal); F17.200 Nicotine dependence, unspecified, uncomplicated; W19.XXXA Unspecified fall, initial encounter

== ENCOUNTER 2024-01-25 08:55 | Outpatient (CLI) | payer MEDICARE, MEDICAID ==
[~2024-01-25] VITALS: Ht 170.2 cm; Wt 72.1 kg
[2024-01-25 09:23] VITALS: BP 93/61; PULSE 113; TEMP 97.8
[2024-01-25] MEDS ORDERED: Albumin (Human) 25 G/100 ML IVPB IV SCH (11:00)
[2024-01-25 11:17] VITALS: BP 94/43; PULSE 116; TEMP 97.8
[2024-01-25 11:41] LABS: PERITONEAL -POLYMORPHONUCLEAR 16.7 % (0-25)
[2024-01-25 11:46] VITALS: BP 101/46; PULSE 112
--- NOTE | 2024-01-25 11:50 | NUR ---
1146: Pt called staff into room. Pt was tearful saying they feel like their blood sugar is high. They stated that they are having shoulder pain and chest pain. These are usual symptoms for them when they have high blood sugar. The pts sugar level was checked, results were 467. This nurse asked the pt if they had insulin they could take. Pt responded they that they did. Pt self administered insulin to bring blood sugar down.
--- NOTE | 2024-01-25 15:57 | NUR ---
1212: Blood sugar checked on pt before DC. Blood sugar was 515. Dr. Mcdonald notified. DR. Mcdonald came and spoke with the pt. Discussed with the pt that we would wait another 15-20 minutes to recheck the blood sugar and conrad notify Dr. Mcdonald of the blood sugar results. 1240: The pts blood sugar was rechecked. Blood sugar 489. notified. Pt can wait longer, or they can go to the ER. Pt stated they did not want to go and wait in the ER. Discussed with the pt that we would recheck in about 30 minutes. 1317: Blood sugar checked again. Blood Sugar 413. Discussed with the pt that their blood sugar is still high. Pt stated they did not want to go to the ER and would like to go home. Discussed with the pt that if their blood sugar does not come down they need to go to the ER. Pt verbalzied their understanding. Pt exited the unit by wheelchair to mothers car.
== END 2024-01-25 13:26 | disposition home or self-care (01) ==
LOC: COL.RAD 08:55
PROVIDERS: Internal Medicine Hepatology
DX: K74.69 Other cirrhosis of liver (principal); K75.4 Autoimmune hepatitis; D84.9 Immunodeficiency, unspecified; K76.6 Portal hypertension; Z95.828 Presence of other vascular implants and grafts
CPT/HCPCS: P9047

== ENCOUNTER 2024-02-08 00:08 | Emergency (ER) | payer MEDICARE, MEDICAID ==
[~2024-02-08] VITALS: Ht 170.2 cm; Wt 59.1 kg
[2024-02-08 00:23] VITALS: TEMP 98
[2024-02-08] MEDS ORDERED: NS 1,000 ML IV ONE (00:45)
[2024-02-08 01:22] LABS: BASO % 0.4 % (0.0-2.0); EOS # 0.1 K/mm3 (0.0-0.7); EOS % 2.5 % (0.0-4.0); GRAN # 3.9 K/mm3 (1.4-6.5); GRAN % 74.3 % (42.2-75.2); HEMOGLOBIN 11.2 g/dl (12.5-16.0); LYMPH # 0.5 K/mm3 (1.2-3.4); LYMPH % 8.8 % (20.0-51.0); MEAN CELL VOLUME 101 fl (80.0-100.0); MEAN CORPUSCULAR HEMOGLOBIN 34 pg (27-31); MEAN CORPUSCULAR HGB CONC 34 g/dl (33.0-37.0); MONO # 0.7 K/mm3 (0.1-0.6); MONO % 13.2 % (1.7-9.3); PLATELET COUNT 106 K/mm3 (130-400); RED BLOOD COUNT 3.28 M/mm3 (4.10-5.30); REDCELL DISTRIBUTION WIDTH-CV 15.3 % (11.5-14.5)
[2024-02-08 01:23] LABS: INR 1.3 (0.8-3.0); PROTHROMBIN TIME 13.9 SECONDS (9.7-12.8)
[2024-02-08 01:25] LABS: HEMATOCRIT 33.2 % (37.0-47.0)
[2024-02-08 01:38] LABS: ALBUMIN 2.4 g/dL (3.5-5.0); BILIRUBIN,TOTAL 6.4 mg/dL (0.2-1.2); CALCIUM 8.3 mg/dL (8.4-10.2); CREATININE, serum 0.59 mg/dL (0.57-1.11); POTASSIUM 4.7 mEq/L (3.5-4.5); TOTAL PROTEIN 6.7 g/dl (6.2-8.1)
[2024-02-08] MEDS ORDERED: NS 50 ML IV SCH (01:52)
[2024-02-08] MEDS ORDERED: Iohexol 300 - 100 ML VIAL IV ONE (01:52)
[2024-02-08 01:53] LABS: COLLECTION METHOD CATHETER
[2024-02-08 02:02] LABS: PH 5.5 (5.0-8.5); URINE APPEARANCE CLOUDY (CLEAR/HAZY); URINE BLOOD TRACE (NEGATIVE); URINE COLOR Dark Yellow (YELLOW); URINE GLUCOSE 2+ (NEGATIVE); URINE KETONE TRACE (NEGATIVE); URINE NITRATE NEGATIVE (NEGATIVE); URINE PROTEIN(semi-quant) NEGATIVE (NEGATIVE)
[2024-02-08 02:17] LABS: BUDDING YEAST PRESENT (NOT PRESENT); SQUAMOUS EPITHELIAL >50 /hpf (0-10); URINE BACTERIA OCCASIONAL /hpf (NONE SEEN); URINE RBC 0-2 /hpf (0-2); URINE WBC >50 /hpf (0-2)
[2024-02-08] MEDS ORDERED: Lactulose Oral Soln 10 GM/15 ML CUP PO ONE (03:30)
[2024-02-08 04:30] VITALS: BP 99/70; PULSE 95
[2024-02-10] MEDS ORDERED: DIFLUCAN150 MG PO (17:22)
== END 2024-02-08 04:24 | disposition home or self-care (01) ==
LOC: COL.ER 00:08
PROVIDERS: Emergency Medicine
DX: K76.9 Liver disease, unspecified (principal); R18.8 Other ascites; E72.20 Disorder of urea cycle metabolism, unspecified; F17.200 Nicotine dependence, unspecified, uncomplicated
CPT/HCPCS: J7030; Q9967

== ENCOUNTER → 2024-03-24 | Outpatient (CLI) | payer MEDICARE, MEDICAID ==
[~2024-03-24] MED LIST changes: +DIFLUCAN150 MG PO
[2024-03-24 11:43] LABS: INR 1.3 (0.8-3.0); PROTHROMBIN TIME 13.9 SECONDS (9.7-12.8)
[2024-03-24 11:53] LABS: BASO % 0.3 % (0.0-2.0); EOS # 0.1 K/mm3 (0.0-0.7); EOS % 2.1 % (0.0-4.0); GRAN # 2.2 K/mm3 (1.4-6.5); GRAN % 74.5 % (42.2-75.2); HEMOGLOBIN 12.5 g/dl (12.5-16.0); LYMPH # 0.4 K/mm3 (1.2-3.4); LYMPH % 12.4 % (20.0-51.0); MEAN CELL VOLUME 98 fl (80.0-100.0); MEAN CORPUSCULAR HEMOGLOBIN 33 pg (27-31); MEAN CORPUSCULAR HGB CONC 34 g/dl (33.0-37.0); MEAN PLATELET VOLUME 10.1 fl (7.4-10.4); MONO # 0.3 K/mm3 (0.1-0.6); MONO % 9.7 % (1.7-9.3); PLATELET COUNT 98 K/mm3 (130-400); RED BLOOD COUNT 3.75 M/mm3 (4.10-5.30); REDCELL DISTRIBUTION WIDTH-CV 14.9 % (11.5-14.5)
[2024-03-24 11:54] LABS: ALBUMIN 2.3 g/dL (3.5-5.0); BILIRUBIN,TOTAL 7.3 mg/dL (0.2-1.2); CALCIUM 7.8 mg/dL (8.4-10.2); CREATININE, serum 0.6 mg/dL (0.57-1.11); POTASSIUM 3.7 mEq/L (3.5-4.5); TOTAL PROTEIN 7.3 g/dl (6.2-8.1)
[2024-03-24 11:56] LABS: HEMATOCRIT 36.8 % (37.0-47.0)
== END ==
LOC: COL.LAB 10:35
PROVIDERS: Nurse Practitioner Adult Health
DX: K75.4 Autoimmune hepatitis (principal); K74.69 Other cirrhosis of liver; D84.9 Immunodeficiency, unspecified